=== PATIENT | male | born 1970 | race Caucasian/White ===

== ENCOUNTER 2017-10-04 20:37 | Emergency (ER) | payer SELFPAY ==
[~2017-10-04] VITALS: Ht 170.2 cm; Wt 80.0 kg
[~2017-10-04 20:37] MED LIST: HYDR-3533 PO
[2017-10-04 20:38] VITALS: BP 136/86; PULSE 110; RESP 16; TEMP 98.6; O2SAT 97
[2017-10-04] MEDS ORDERED: TRAM50TA PO (21:45)
--- NOTE | 2017-10-04 21:52 | PD ---
HPI Chief Complaint: Abdominal Pain Time Seen by Provider: 21:30 Travel History International Travel<30 days: No Contact w/Intl Traveler<30days: No Traveled to known affect area: No History of Present Illness HPI This patient complains of pain in his left groin. He has a known left inguinal hernia. He has had it for 2-3 years. He says it has been aggravating him more in the last 1 week. He denies vomiting or fever. Symptom severity is moderate. PFSH Past Medical History Anxiety: Yes Cancer: No Cardiovascular Problems: Yes (HTN) Diabetes: No GERD: Yes Hepatitis: No Hypertension: Yes Immune Disorder: Yes (HODGKIN'S DISEASE) Inguinal Hernia: Yes (LEFT) Respiratory: No Thyroid Disease: No Past Surgical History Pacemaker: No Other Surgery: Yes Social History Alcohol Use: Yes (6/DAY) Tobacco Use: Yes (1/4PPD) Substance Use: No Allergies-Medications (Allergen,Severity, Reaction): Coded Allergies: No Known Allergies (Verified Adverse Reaction, Unknown, 10/04/17) Reported Meds & Prescriptions Reported Meds & Active Scripts Active Tramadol (Tramadol HCl) 50 Mg Tab 50 Mg PO Q6H PRN Review of Systems General / Constitutional: No: Fever HENT: No: Headaches Cardiovascular: No: Chest Pain or Discomfort Respiratory: No: Cough Physical Exam Narrative GASTROINTESTINAL: Abdomen soft, non-tender, nondistended. Positive bowel sounds. No hepato-splenomegaly, or palpable masses. No guarding. Patient has a left inguinal hernia that is easily reducible. SKIN: Focused skin assessment reveals no rash or ulcers. Skin is warm and dry. Palpation shows no induration or nodules. Psych: Normal mood and affect. Normal insight and judgment. NECK: Symmetrical appearance, midline trachea. No mass or crepitus. Thyroid without enlargement, tenderness, or mass. Data Data Last Documented VS Vital Signs Date Time Temp Pulse Resp B/P (MAP) Pulse Ox O2 Delivery O2 Flow Rate FiO2 10/04/17 20:38 98.6 110 16 136/86 (103) 97 Room Air MDM Medical Decision Making Medical Screen Exam Complete: Yes Emergency Medical Condition: Yes Medical Record Reviewed: Yes Differential Diagnosis Incarcerated hernia, groin strain, colitis Narrative Course I have reviewed the patient's electronic medical record. He was seen here 2 years ago for groin hernia This patient has a left inguinal hernia without incarceration It is readily reducible It is chronic Recommended he follow-up with general surgery I wrote some tramadol for pain relief Diagnosis Primary Impression: Inguinal hernia, left Patient Instructions: General Instructions Departure Forms: Tests/Procedures Additional Instructions: Follow-up with general surgery The patient was warned about potential sedation for the medications they will receive on prescription. Avoid constipation, consider stool softeners Avoid heavy lifting or straining Med/Other Pt SpecificInfo: Prescription(s) given Scripts Tramadol (Tramadol) 50 Mg Tab 50 MG PO Q6H Y for PAIN, #20 TAB 0 Refills Prov: Tommy Farfan MD 10/04/17 Disposition: 01 DISCHARGE HOME Condition: Stable Tommy Farfan MD Oct 04, 2017 21:52
== END 2017-10-04 22:10 | disposition home or self-care (01) ==
LOC: NEPD 20:37
DX: K40.90 Unilateral inguinal hernia, without obstruction or gangrene, not specified as recurrent (principal); F17.200 Nicotine dependence, unspecified, uncomplicated
CPT/HCPCS: 99283

== ENCOUNTER 2018-07-06 18:45 | Inpatient (IN) ==
[2018-07-06] MEDS ORDERED: Thiamine Inj 100 MG in Sodium Chlor 0.9% Inj 100 ML IV.SIG ONE (20:14)
--- NOTE | 2018-07-06 20:25 | ED ---
HPI General Chief Complaint: Abdominal Pain Stated Complaint: Medical Time Seen by Provider: 07/06/18 20:06 Source: patient Mode of arrival: ambulatory Limitations: no limitations History of Present Illness HPI narrative: 48-year-old male complains of abdominal pain, abdominal swelling , lower extremity swelling. Patient states that symptoms started about 2 months ago. Patient has history of alcohol abuse. Patient states that he stopped drinking about 2 months ago. Patient states that he had increasing swelling of the ankle and then lower extremity and then the abdomen progressively for the past 2 months. Patient denies any nausea vomiting. Patient denies any fever chills. Patient denies any chest pain. Patient states that he has shortness of breath. Patient states abdominal pain and cramping pain intermittent pain diffuse over the abdomen. Patient denies any pain radiation. Patient denies any dysuria frequency. Patient denies any back pain. Patient has history of hypertension in the past. Patient has history of elevated triglyceride level in the past. Patient is a smoker. Patient denies any illicit drug abuse. MD complaint: Reports abdominal pain Onset (ago): month(s) Pain Consistency: constant and intermittent Location: Reports diffuse Severity: mild Severity scale (1-10): 4 Quality: Reports cramping Radiation: Reports none Migration to: Reports no migration Relieving factors: nothing Exacerbating factors: nothing Associated symptoms: Reports denies other symptoms Related Data Home Medications Medication Instructions Recorded Confirmed No Known Home Medications 07/06/18 07/06/18 Allergies Allergy/AdvReac Type Severity Reaction Status Date / Time No Known Allergies Allergy Verified 07/06/18 19:55 Review of Systems ROS: all other systems reviewed are negative [facility] Medical History Medical History Alcoholism /alcohol abuse (Acute) Hypertension (Acute) Kidney capsule rupture (Acute) Surgical History Surgical History No history of previous surgery (Acute) Social History Social History Smoking Status: Current every day smoker Tobacco Type: Cigarettes How Often Do You Have a Drink Containing Alcohol: 4 or more times a week Recent Travel in [facility] within the Last 8 Weeks: No Recent Out of Country Travel within the Last 8 Weeks: No Immunization History Tetanus Immunization: <5 Years Exam Narrative Exam Narrative: GENERAL: Well-nourished, well-developed patient. SKIN: Jaundice HEAD: Normocephalic. EYES: Bilateral scleral icterus. No injection or drainage. NECK: Supple, trachea midline. No JVD or lymphadenopathy. CARDIOVASCULAR: Regular rate and rhythm without murmurs, gallops, or rubs. RESPIRATORY: Breath sounds equal bilaterally. No accessory muscle use. GASTROINTESTINAL: Abdomen distended. Mild diffuse tenderness over the abdomen. No rebound tenderness. MUSCULOSKELETAL: Patient has +2 pitting edema lower extremity. BACK: Nontender without obvious deformity. No CVA tenderness. Neurologic exam normal. Course Initial Documented Vital Signs Temperature 97.9 F 07/06/18 19:12 Pulse Rate 110 H 07/06/18 19:12 Respiratory Rate 14 07/06/18 19:12 Blood Pressure 145/63 H 07/06/18 19:12 Pulse Oximetry 88 L 07/06/18 19:12 Last Documented Vital Signs Temperature 97.9 F 07/06/18 19:12 Pulse Rate 95 H 07/06/18 20:36 Respiratory Rate 24 07/06/18 19:51 Blood Pressure 124/89 07/06/18 19:51 Pulse Oximetry 93 L 07/06/18 20:36 Medical Decision Making MDM Narrative Medical decision making narrative: 48-year-old male with abdominal distention, lower extremity edema, and jaundice. History of alcohol abuse. Medical Screen Exam Complete: Yes Emergency Medical Condition: Yes Differential Diagnosis Differential Diagnosis: Differential diagnosis including hepatitis, gallbladder disease, common bile duct obstruction, electrolyte abnormality, liver cirrhosis , abdominal ascites. Lab Data Lab results reviewed: Yes I reviewed the patient's lab results. Result diagrams: 07/06/18 20:25 07/06/18 20:25 Lab Results 07/06/18 07/06/18 07/06/18 Range/Units 20:25 20:25 20:25 WBC 11.4 H (4.0-11.0) th/mm3 RBC 2.05 L (4.50-5.90) mil/mm3 Hgb 7.3 L (13.0-17.0) gm/dL Hct 22.0 L (39.0-51.0) % MCV 107.5 H (80.0-100.0) fL MCH 35.4 H (27.0-34.0) pg MCHC 32.9 (32.0-36.0) % RDW 20.3 H (11.6-17.2) % Plt Count 173 (150-450) th/mm3 MPV 8.2 (7.0-11.0) fL Prelim Diff (Auto) Slide review pending Neut % (Auto) 69.5 (16.0-70.0) % Lymph % (Auto) 13.5 (9.0-44.0) % [place] % (Auto) 13.6 H (0.0-8.0) % Eos % (Auto) 2.1 (0.0-4.0) % Baso % (Auto) 1.3 (0.0-2.0) % Neut # (Auto) 8.0 H (1.8-7.7) th/mm3 Lymph # (Auto) 1.5 (1.0-4.8) th/mm3 [place] # (Auto) 1.6 H (0.0-0.9) th/mm3 Eos # (Auto) 0.2 (0.0-0.4) th/mm3 Baso # (Auto) 0.1 (0.0-0.2) th/mm3 WBC Differential Manual diff final Seg Neuts % (Manual) 64 (16-70) % Lymphocytes % (Manual) 15 (9-44) % Monocytes % (Manual) 16 H (0-8) % Eosinophils % (Manual) 2 (0-4) % Basophils % (Manual) 2 (0-2) % Promyelocytes % (Man) 1 H (0-0) % Abs Neuts (Manual) 7.4 (1.8-7.7) th/mm3 Nucleated RBCs/100 WBC 3 H (0-0) /100 WBC Differential Comment . Platelet Estimate Normal (Normal) Platelet Morphology Normal (Normal) Acanthocytes (Spur) 2+ H (None) Keratocytes 1+ H (None) PT 19.2 H (9.8-11.6) sec INR 1.9 Ratio APTT 31.2 (23.4-31.7) sec Sodium 139 (136-145) meq/L Potassium 3.6 (3.5-5.1) meq/L Chloride 102 (98-107) meq/L Carbon Dioxide 28.4 (21.0-32.0) meq/L Anion Gap 9 (5-15) meq/L BUN 14 (7-18) mg/dL Creatinine 1.39 H (0.60-1.30) mg/dL Estimated GFR 55 L (>89) mL/min Random Glucose 126 H (74-106) mg/dL Calcium 8.3 L (8.5-10.1) mg/dL Magnesium 1.9 (1.5-2.5) mg/dL Total Bilirubin 22.0 H (0.2-1.0) mg/dL AST 61 H (15-37) U/L ALT 34 (12-78) U/L Alkaline Phosphatase 142 H (45-117) U/L Ammonia (11-32) mcmol/L Total Protein 6.6 (6.4-8.2) g/dL Albumin 2.9 L (3.4-5.0) g/dL Lipase 341 (73-393) U/L 07/06/ Range/Units 20:25 WBC (4.0-11.0) th/mm3 RBC (4.50-5.90) mil/mm3 Hgb (13.0-17.0) gm/dL Hct (39.0-51.0) % MCV (80.0-100.0) fL MCH (27.0-34.0) pg MCHC (32.0-36.0) % RDW (11.6-17.2) % Plt Count (150-450) th/mm3 MPV (7.0-11.0) fL Prelim Diff (Auto) Neut % (Auto) (16.0-70.0) % Lymph % (Auto) (9.0-44.0) % [place] % (Auto) (0.0-8.0) % Eos % (Auto) (0.0-4.0) % Baso % (Auto) (0.0-2.0) % Neut # (Auto) (1.8-7.7) th/mm3 Lymph # (Auto) (1.0-4.8) th/mm3 [place] # (Auto) (0.0-0.9) th/mm3 Eos # (Auto) (0.0-0.4) th/mm3 Baso # (Auto) (0.0-0.2) th/mm3 WBC Differential Seg Neuts % (Manual) (16-70) % Lymphocytes % (Manual) (9-44) % Monocytes % (Manual) (0-8) % Eosinophils % (Manual) (0-4) % Basophils % (Manual) (0-2) % Promyelocytes % (Man) (0-0) % Abs Neuts (Manual) (1.8-7.7) th/mm3 Nucleated RBCs/100 WBC (0-0) /100 WBC Differential Comment Platelet Estimate (Normal) Platelet Morphology (Normal) Acanthocytes (Spur) (None) Keratocytes (None) PT (9.8-11.6) sec INR Ratio APTT (23.4-31.7) sec Sodium (136-145) meq/L Potassium (3.5-5.1) meq/L Chloride (98-107) meq/L Carbon Dioxide (21.0-32.0) meq/L Anion Gap (5-15) meq/L BUN (7-18) mg/dL Creatinine (0.60-1.30) mg/dL Estimated GFR (>89) mL/min Random Glucose (74-106) mg/dL Calcium (8.5-10.1) mg/dL Magnesium (1.5-2.5) mg/dL Total Bilirubin (0.2-1.0) mg/dL AST (15-37) U/L ALT (12-78) U/L Alkaline Phosphatase (45-117) U/L Ammonia Less than 10 L (11-32) mcmol/L Total Protein (6.4-8.2) g/dL Albumin (3.4-5.0) g/dL Lipase (73-393) U/L Imaging Data Attestation: I personally reviewed and interpreted this imaging study as follows : Radiologist's impression: Abdomen/Pelvis CT 07/06/18 20:14 CONCLUSION: 1. Large amount of abdominal ascites. 2. Splenomegaly. Discharge Plan Discharge Disposition Patient Disposition: 30 Still Patient Discharge Details Diagnosis: Ascites, Alcoholic hepatitis, Acute dyspnea, Coagulopathy Physicians Team ED Provider: Carl Peña Primary Care Provider: Primary Care Physici,No Rxs /Orders / Referrals /Forms Prescriptions: No Action No Known Home Medications RF: 0 Discharge Interventions Interventions: Vital Signs Last Done: 07/06/18 19:51 Status ED Status: With Doctor
[2018-07-06] MEDS ORDERED: Morphine Sulfate Inj 2 MG/ML Vial IV.PUSH ONE (20:41)
[2018-07-06 20:46] LABS: Baso # (Auto) 0.1 th/mm3 (0.0-0.2); Baso % (Auto) 1.3 % (0.0-2.0); Eos # (Auto) 0.2 th/mm3 (0.0-0.4); Eos % (Auto) 2.1 % (0.0-4.0); Hemoglobin 7.3 gm/dL (13.0-17.0); Lymph # (Auto) 1.5 th/mm3 (1.0-4.8); Lymph % (Auto) 13.5 % (9.0-44.0); Mean Corpuscular HGB Conc 32.9 % (32.0-36.0); Mean Corpuscular Hemoglobin 35.4 pg (27.0-34.0); Mean Corpuscular Volume 107.5 fL (80.0-100.0); Mean Platelet Volume 8.2 fL (7.0-11.0); Mono # (Auto) 1.6 th/mm3 (0.0-0.9); Mono % (Auto) 13.6 % (0.0-8.0); Neut % (Auto) 69.5 % (16.0-70.0); Platelet Count 173 th/mm3 (150-450); Red Blood Count 2.05 mil/mm3 (4.50-5.90); Red Cell Distribution Width 20.3 % (11.6-17.2); White Blood Count 11.4 th/mm3 (4.0-11.0)
[2018-07-06 20:52] LABS: Alanine Aminotransferase 34 U/L (12-78)
[2018-07-06 20:53] LABS: Albumin 2.9 g/dL (3.4-5.0); Anion Gap 9 meq/L (5-15); Aspartate Aminotransferase 61 U/L (15-37); Blood Urea Nitrogen 14 mg/dL (7-18); Calcium 8.3 mg/dL (8.5-10.1); Carbon Dioxide 28.4 meq/L (21.0-32.0); Chloride 102 meq/L (98-107); Glomerular Filtration Rate 55 mL/min (>89); Glucose,Random 126 mg/dL (74-106); Lipase 341 U/L (73-393); Magnesium 1.9 mg/dL (1.5-2.5); Potassium 3.6 meq/L (3.5-5.1); Sodium 139 meq/L (136-145)
[2018-07-06 21:05] LABS: Activated Partial Thrombo Time 31.2 sec (23.4-31.7); INR 1.9 Ratio; Prothrombin Time 19.2 sec (9.8-11.6)
[2018-07-06 21:10] LABS: Alkaline Phosphatase 142 U/L (45-117); Total Protein 6.6 g/dL (6.4-8.2)
[2018-07-06 21:23] LABS: Eosinophils 2 % (0-4); Lymphocytes 15 % (9-44); Monocytes 16 % (0-8); Promyelocyte 1 % (0-0); Tallied Nucleated RBC 3 (0-0)
[2018-07-06 21:24] LABS: Acanthocytes 2+
[2018-07-06 21:25] LABS: Platelet Estimate Normal (Normal); Platelet Morphology Normal (Normal)
--- NOTE | 2018-07-06 21:31 | CT ---
EXAM DATE: 07/06/2018 9:20 PM EST AGE/SEX: 48 years / Male INDICATIONS: Abdomen pain. Evaluate for ascites. CLINICAL DATA: This is the patient's initial encounter. Patient reports that signs and symptoms have been present for 1 day and indicates a pain score of 10/10. MEDICAL/SURGICAL HISTORY: Hypertension. Alcohol abuse None. RADIATION DOSE: 19.10 CTDI (mGy) COMPARISON: No prior exams available for comparison. TECHNIQUE: Multiple contiguous axial images were obtained through the abdomen. Images were obtained using multiple row detector helical technique. Using automated exposure control and adjustment of the mA and/or kV according to patient size, radiation dose was kept as low as reasonably achievable to o btain optimal diagnostic quality images. DICOM format image data is available electronically for rev iew and comparison. FINDINGS: Lower Lungs: Small bilateral pleural effusions and bibasilar consolidation greater left lower lobe. Liver: The liver has a homogeneous density without space-occupying lesion. There is no dilation of th e biliary tree. Large amount of abdominal ascites. Spleen: Homogeneous density with enlargement. Pancreas: Unremarkable without mass or calcification. Kidneys: Normal in size and shape. No evidence of mass or hydronephrosis. Adrenal Glands: Unremarkable. Aorta: The aorta and proximal iliac vessels are grossly unremarkable without aneurysmal dilation. Bowel/Mesentery: The bowel loops are grossly unremarkable. The cecum and sigmoid colon have a normal configuration. Abdominal Wall: Intact. Retroperitoneum: No evidence of adenopathy in the retrocrural, para-aortic, or deep pelvic regions. Bladder: Contours are smooth. Reproductive Organs: No abnormal masses or calcifications seen. Inguinal: Bilateral inguinal hernias containing fluid. The left. Bony Structures: Unremarkable. CONCLUSION: 1. Large amount of abdominal ascites. 2. Splenomegaly. Electronically signed by: Nehemiah Valente MD 07/06/2018 9:30 PM EST
[2018-07-06] MEDS ORDERED: Bisacodyl 10 MG Supp RECTAL PRN (22:46)
[2018-07-06] MEDS ORDERED: LORazepam 1 MG Tablet PO PRN (23:19)
[2018-07-06] MEDS ORDERED: Haloperidol Inj 5 MG/ML Ampul IV.PUSH PRN (23:19)
--- NOTE | 2018-07-06 23:31 | P.HP ---
History of Present Illness Service: [facility] Primary Care Physician: No Primary Care Physician History of Present Illness: 48-year-old male with a past medical history significant for alcohol abuse presents to the emergency department for the evaluation of abdominal swelling and shortness of breath. The patient reports that approximately 8 weeks ago he started to have bilateral lower extremity edema. He reports that the swelling continued to worsen and approximately 4 weeks ago his abdomen began to swell. He reports increasing swelling in his abdomen with accompanying shortness of breath. He has been jaundiced for approximately 8 weeks. The patient reports drinking 8-10 beers a day with 1 pint of liquor daily as well. He denies any history of IV drug abuse or hepatitis C. No chest pain. Associated abdominal pain. No nausea/vomiting/diarrhea. The patient reports that his last drink was 2 months ago. No fever/chills. No focal neurologic deficits. Inpatient Certification: I certify that the inpatient services were ordered in accordance with Medicare regulations governing the order. This includes certification that hospital inpatient services are reasonable and necessary and in the case of services not specified as inpatient-only under 42 CFR 419.22(n), that they are appropriately provided as inpatient services in accordance to with the 2-midnight benchmark under 43 CFR 412.3(e) Estimated Total Length of Stay (Days): 3 Plans for Post Hospital Care: Home Review of Systems All other systems reviewed negative except as stated [facility] - History History Provided By: Patient - Medical History Medical History: Medical History (Last Reviewed 07/06/18 @ 23:22 by Yesenia Denis MD) Alcoholism /alcohol abuse Hypertension Kidney capsule rupture - Surgical History Surgical History: Surgical History (Last Updated 07/06/18 @ 23:23 by Yesenia Denis MD) History of hand surgery History of knee surgery - Family History Family History: Family History (Last Updated 07/06/18 @ 23:23 by Yesenia Denis MD) Other Diabetes mellitus - Tobacco History Tobacco Use In Past 30 Days: Yes Smoking Status: Current every day smoker Tobacco Type: Cigarettes - Alcohol History How Often Do You Have a Drink Containing Alcohol: 4 or more times a week - Travel History Recent Travel in the [place] Within the Last 8 Weeks: No Recent Travel Out of the Country Within the Last 8 Weeks: No - Immunization History Tetanus Immunization: <5 Years Medications and Allergies Active Medications: Active Medications Bisacodyl (Dulcolax Supp) 10 mg RECTAL DAILY PRN PRN Reason: SEVERE CONSITIPATION Ondansetron HCl (Zofran Inj) 4 mg IV.PUSH Q6H PRN PRN Reason: NAUSEA OR VOMITING Sennosides (Senokot) 17.2 mg PO Q12H PRN PRN Reason: Moderate Constipation Allergies Allergy/AdvReac Type Severity Reaction Status Date / Time No Known Allergies Allergy Verified 07/06/18 19:55 Home Medications Medication Instructions Recorded Confirmed Type No Known Home Medications 07/06/18 07/06/18 History Exam Vital signs: Vital Signs 07/06/18 19:12 07/06/18 19:51 07/06/18 20:36 Temperature 97.9 F Pulse Rate 110 H 98 H 95 H Respiratory Rate 14 24 Blood Pressure 145/63 H 124/89 Pulse Oximetry 88 L 93 L 93 L 07/06/18 22:28 07/06/18 23:17 Temperature Pulse Rate 92 H Respiratory Rate 20 Blood Pressure 135/84 Pulse Oximetry 96 92 L Intake & Output 07/06/18 07/06/18 07/07/18 06:59 18:59 06:59 Intake Total 101 / 101 Balance 101 / 101 Weight 86.183 kg Intake: IV 101 / 101 Thiamine Inj 100 MG In NS Inj 101 / 101 100 ML @ 100 mls/hr IV.SIG ONCE ONE Rx#:[id number] Narrative: Gen.: No acute distress. Positive jaundice. Head: Normocephalic. Atraumatic. EENT: Pupils equal round and reactive to light. Nose without drainage. Airway intact. Throat without injection. Positive scleral icterus. Cardiovascular: Regular rate and rhythm. No murmurs, rubs or gallops. Respiratory: Lungs clear to auscultation bilaterally. No wheezes or rhonchi. Abdomen: Soft, markedly distended, diffusely tender to palpation with positive fluid wave. No peritoneal signs. Musculoskeletal: No gross deformities. No edema. Skin: No obvious rashes or erythema. Neuro: Sensory and motor grossly intact. Cranial nerves II through XII grossly intact. Results - Labs CBC & Chem 7: 07/06/18 20:25 07/06/18 20:25 Labs: Laboratory Results - last 24 hr 07/06/18 07/06/18 07/06/18 20:25 20:25 20:25 WBC 11.4 H RBC 2.05 L Hgb 7.3 L Hct 22.0 L MCV 107.5 H MCH 35.4 H MCHC 32.9 RDW 20.3 H Plt Count 173 MPV 8.2 Prelim Diff (Auto) Slide review pending Neut % (Auto) 69.5 Lymph % (Auto) 13.5 [place] % (Auto) 13.6 H Eos % (Auto) 2.1 Baso % (Auto) 1.3 Neut # (Auto) 8.0 H Lymph # (Auto) 1.5 [place] # (Auto) 1.6 H Eos # (Auto) 0.2 Baso # (Auto) 0.1 WBC Differential Manual diff final Seg Neuts % (Manual) 64 Lymphocytes % (Manual) 15 Monocytes % (Manual) 16 H Eosinophils % (Manual) 2 Basophils % (Manual) 2 Promyelocytes % (Man) 1 H Abs Neuts (Manual) 7.4 Nucleated RBCs/100 WBC 3 H Differential Comment . Platelet Estimate Normal Platelet Morphology Normal Acanthocytes (Spur) 2+ H Keratocytes 1+ H PT 19.2 H INR 1.9 APTT 31.2 Sodium 139 Potassium 3.6 Chloride 102 Carbon Dioxide 28.4 Anion Gap 9 BUN 14 Creatinine 1.39 H Estimated GFR 55 L Random Glucose 126 H Calcium 8.3 L Magnesium 1.9 Total Bilirubin 22.0 H AST 61 H ALT 34 Alkaline Phosphatase 142 H Ammonia Total Protein 6.6 Albumin 2.9 L Lipase 341 07/06/18 20:25 WBC RBC Hgb Hct MCV MCH MCHC RDW Plt Count MPV Prelim Diff (Auto) Neut % (Auto) Lymph % (Auto) [place] % (Auto) Eos % (Auto) Baso % (Auto) Neut # (Auto) Lymph # (Auto) [place] # (Auto) Eos # (Auto) Baso # (Auto) WBC Differential Seg Neuts % (Manual) Lymphocytes % (Manual) Monocytes % (Manual) Eosinophils % (Manual) Basophils % (Manual) Promyelocytes % (Man) Abs Neuts (Manual) Nucleated RBCs/100 WBC Differential Comment Platelet Estimate Platelet Morphology Acanthocytes (Spur) Keratocytes PT INR APTT Sodium Potassium Chloride Carbon Dioxide Anion Gap BUN Creatinine Estimated GFR Random Glucose Calcium Magnesium Total Bilirubin AST ALT Alkaline Phosphatase Ammonia Less than 10 L Total Protein Albumin Lipase - Imaging Impressions Abdomen/Pelvis CT 07/06/18 20:14 CONCLUSION: 1. Large amount of abdominal ascites. 2. Splenomegaly. Caprini VTE Risk Assessment Caprini VTE Risk Assessment: No/Low Risk (score <= 1) Caprini Risk Assessment Model: Point Value = 1 Point Value = 2 Point Value = 3 Point Value = 5 Age 41-60 Minor surgery BMI > 25 kg/m2 Swollen legs Varicose veins or History of unexplained or recurrent spontaneous Oral contraceptives or hormone replacement Sepsis (< 1 month) Serious lung disease, including pneumonia (< 1 month) Abnormal pulmonary function Acute myocardial infarction Congestive heart failure (< 1 month) History of inflammatory bowel disease Medical patient at bed rest Age 61-74 Arthroscopic surgery Major open surgery (> 45 min) Laparoscopic surgery (> 45 min) Malignancy Confined to bed (> 72 hours) Immobilizing plaster cast Central venous access Age >= 75 History of VTE Family history of VTE Factor V Leiden Prothrombin [id number] Lupus anticoagulant Anticardiolipin antibodies Elevated serum homocysteine Heparin-induced thrombocytopenia Other congenital or acquired thrombophilia Stroke (< 1 month) Elective arthroplasty Hip, pelvis, or leg fracture Acute spinal cord injury (< 1 month) Prophylaxis Regimen: Total Risk Factor Score Risk Level Prophylaxis Regimen 0-1 Low Early ambulation 2 Moderate Order ONE of the following: *Sequential Compression Device (SCD) *Heparin 5000 units SQ BID 3-4 Higher Order ONE of the following medications: *Heparin 5000 units SQ TID *Enoxaparin/Lovenox 40 mg SQ daily (WT < 150 kg, CrCl > 30 mL/min) *Enoxaparin/Lovenox 30 mg SQ daily (WT < 150 kg, CrCl > 10-29 mL/min) *Enoxaparin/Lovenox 30 mg SQ BID (WT < 150 kg, CrCl > 30 mL/min) AND/OR *Sequential Compression Device (SCD) 5 or more Highest Order ONE of the following medications: *Heparin 5000 units SQ TID (Preferred with Epidurals) *Enoxaparin/Lovenox 40 mg SQ daily (WT < 150 kg, CrCl > 30 mL/min) *Enoxaparin/Lovenox 30 mg SQ daily (WT < 150 kg, CrCl > 10-29 mL/min) *Enoxaparin/Lovenox 30 mg SQ BID (WT < 150 kg, CrCl > 30 mL/min) AND *Sequential Compression Device (SCD) Assessment and Plan - Plan Assessment/plan: 1. Ascites/jaundice May be secondary to liver failure from alcohol abuse Hepatitis profile pending CT of the abdomen/pelvis significant homogeneous density of the liver AFP pending Thoracentesis ordered 2. Alcohol abuse Patient reports last drink was 2 months ago Reports drinking 8-10 beers daily with 1 pint of hard liquor [facility] protocol Alcohol level pending FEN N.p.o. Electrolytes: Monitor and replete as needed
[2018-07-07 01:03] LABS: Hepatitis A IgM Antibody Nonreactive (Nonreactive); Hepatitits B Surface Antigen Nonreactive (Nonreactive)
[2018-07-07 08:17] LABS: Baso # (Auto) 0.1 th/mm3 (0.0-0.2); Eos # (Auto) 0.7 th/mm3 (0.0-0.4); Eos % (Auto) 5.1 % (0.0-4.0); Lymph # (Auto) 2.6 th/mm3 (1.0-4.8); Lymph % (Auto) 20.4 % (9.0-44.0); Mean Corpuscular HGB Conc 34.1 % (32.0-36.0); Mean Corpuscular Hemoglobin 36.9 pg (27.0-34.0); Mean Platelet Volume 7.9 fL (7.0-11.0); Mono # (Auto) 1.9 th/mm3 (0.0-0.9); Mono % (Auto) 14.7 % (0.0-8.0); Neut # (Auto) 7.6 th/mm3 (1.8-7.7); Neut % (Auto) 58.8 % (16.0-70.0); Platelet Count 140 th/mm3 (150-450); Red Blood Count 1.57 mil/mm3 (4.50-5.90); Red Cell Distribution Width 20.9 % (11.6-17.2)
[2018-07-07 08:34] LABS: Hematocrit 16.9 % (39.0-51.0); Hemoglobin 5.8 gm/dL (13.0-17.0)
[2018-07-07 08:46] LABS: Carbon Dioxide 30.3 meq/L (21.0-32.0); Potassium 3.3 meq/L (3.5-5.1)
[2018-07-07] MEDS: Multivitamin/Minerals Therapeutic Tablet PO SCH (08:46)
[2018-07-07] MEDS: Folic Acid 1 MG Tablet PO SCH (08:46)
[2018-07-07] MEDS ORDERED: KCL 20 mEq/D5W/NaCl 0.9% Inj 1,000 ML IV.CONT SCH (09:17)
[2018-07-07 09:50] LABS: Burr Cells 2+; Polychromasia 3.9 % (0.0-1.9)
[2018-07-07 09:51] LABS: Acanthocytes 1+; Platelet Morphology Normal (Normal)
--- NOTE | 2018-07-07 10:19 | P.PNIM ---
Subjective Interval history: The patient said that he has been having blood in his urine for weeks. He states his belly has been getting bigger and that has been causing more strain on his hernia. He says he gets short of breath at times. He says he drinks a lot of beer daily. He denies any blood in his bowel movements or black bowel movements. Discussed with nursing. Physical Exam Vital signs: Vital Signs 07/06/18 19:12 07/06/18 19:51 07/06/18 20:36 Temperature 97.9 F Pulse Rate 110 H 98 H 95 H Respiratory Rate 14 24 Blood Pressure 145/63 H 124/89 Pulse Oximetry 88 L 93 L 93 L 07/06/18 22:28 07/06/18 23:17 07/07/18 04:00 Temperature 97.7 F Pulse Rate 92 H 97 H Respiratory Rate 20 22 Blood Pressure 135/84 117/66 Pulse Oximetry 96 92 L 90 L 07/07/18 08:00 Temperature 98.1 F Pulse Rate 97 H Respiratory Rate 19 Blood Pressure 127/68 Pulse Oximetry 94 L Intake & Output 07/06/18 07/07/18 07/07/18 18:59 06:59 18:59 Intake Total 101 / 101 Balance 101 / 101 Weight 88.2 kg Intake: IV 101 / 101 Thiamine Inj 100 MG In NS Inj 101 / 101 100 ML @ 100 mls/hr IV.SIG ONCE ONE Rx#:[id number] Other: Weight On Admission 88.2 kg Narrative: Gen.: No acute distress. Positive jaundice. Head: Normocephalic. Atraumatic. EENT: Pupils equal round and reactive to light. Nose without drainage. Airway intact. Throat without injection. Positive scleral icterus. Cardiovascular: Regular rate and rhythm. No murmurs, rubs or gallops. Respiratory: Lungs clear to auscultation bilaterally. No wheezes or rhonchi. Abdomen: Soft, markedly distended, nontender to palpation. No peritoneal signs. : Left inguinal hernia appreciated. Musculoskeletal: No gross deformities. + LE edema. Skin: No obvious rashes or erythema. Neuro: Sensory and motor grossly intact. Cranial nerves II through XII grossly intact. Results - Labs CBC & Chem 7: 07/07/18 07:52 07/07/18 07:52 Laboratory Results - last 24 hr 07/06/18 07/06/18 07/06/18 20:25 20:25 20:25 WBC 11.4 H RBC 2.05 L Hgb 7.3 L Hct 22.0 L MCV 107.5 H MCH 35.4 H MCHC 32.9 RDW 20.3 H Plt Count 173 MPV 8.2 Prelim Diff (Auto) Slide review pending Neut % (Auto) 69.5 Lymph % (Auto) 13.5 Alexander % (Auto) 13.6 H Eos % (Auto) 2.1 Baso % (Auto) 1.3 Neut # (Auto) 8.0 H Lymph # (Auto) 1.5 Alexander # (Auto) 1.6 H Eos # (Auto) 0.2 Baso # (Auto) 0.1 WBC Differential Manual diff final Diff Scan Seg Neuts % (Manual) 64 Lymphocytes % (Manual) 15 Monocytes % (Manual) 16 H Eosinophils % (Manual) 2 Basophils % (Manual) 2 Promyelocytes % (Man) 1 H Abs Neuts (Manual) 7.4 Nucleated RBCs/100 WBC 3 H Differential Comment . Platelet Estimate Normal Platelet Morphology Normal Polychromasia Andrew Cells Acanthocytes (Spur) 2+ H Keratocytes 1+ H PT 19.2 H INR 1.9 APTT 31.2 Sodium 139 Potassium 3.6 Chloride 102 Carbon Dioxide 28.4 Anion Gap 9 BUN 14 Creatinine 1.39 H Estimated GFR 55 L Random Glucose 126 H Calcium 8.3 L Magnesium 1.9 Total Bilirubin 22.0 H AST 61 H ALT 34 Alkaline Phosphatase 142 H Ammonia Total Protein 6.6 Albumin 2.9 L Lipase 341 Tumor Marker AFP Serum Alcohol Hepatitis A IgM Ab Hep Bs Antigen Hep B Core IgM Ab Hep C IgG Ab 07/06/18 07/06/18 07/06/18 20:25 20:25 23:10 WBC RBC Hgb Hct MCV MCH MCHC RDW Plt Count MPV Prelim Diff (Auto) Neut % (Auto) Lymph % (Auto) Alexander % (Auto) Eos % (Auto) Baso % (Auto) Neut # (Auto) Lymph # (Auto) Alexander # (Auto) Eos # (Auto) Baso # (Auto) WBC Differential Diff Scan Seg Neuts % (Manual) Lymphocytes % (Manual) Monocytes % (Manual) Eosinophils % (Manual) Basophils % (Manual) Promyelocytes % (Man) Abs Neuts (Manual) Nucleated RBCs/100 WBC Differential Comment Platelet Estimate Platelet Morphology Polychromasia [place] Cells Acanthocytes (Spur) Keratocytes PT INR APTT Sodium Potassium Chloride Carbon Dioxide Anion Gap BUN Creatinine Estimated GFR Random Glucose Calcium Magnesium Total Bilirubin AST ALT Alkaline Phosphatase Ammonia Less than 10 L Total Protein Albumin Lipase Tumor Marker AFP Serum Alcohol Less than 3 Hepatitis A IgM Ab Nonreactive Hep Bs Antigen Nonreactive Hep B Core IgM Ab Nonreactive Hep C IgG Ab Nonreactive 07/06/18 07/07/18 07/07/18 23:10 07:52 07:52 WBC 13.0 H RBC 1.57 L Hgb 5.8 L* Hct 16.9 L* MCV 108.0 H MCH 36.9 H MCHC 34.1 RDW 20.9 H Plt Count 140 L MPV 7.9 Prelim Diff (Auto) Slide review pending Neut % (Auto) 58.8 Lymph % (Auto) 20.4 Alexander % (Auto) 14.7 H Eos % (Auto) 5.1 H Baso % (Auto) 1.0 Neut # (Auto) 7.6 Lymph # (Auto) 2.6 Alexander # (Auto) 1.9 H Eos # (Auto) 0.7 H Baso # (Auto) 0.1 WBC Differential . Diff Scan Auto diff confirmed Seg Neuts % (Manual) Lymphocytes % (Manual) Monocytes % (Manual) Eosinophils % (Manual) Basophils % (Manual) Promyelocytes % (Man) Abs Neuts (Manual) Nucleated RBCs/100 WBC Differential Comment . Platelet Estimate Low L Platelet Morphology Normal Polychromasia 3.9 H Andrew Cells 2+ H Acanthocytes (Spur) 1+ H Keratocytes PT INR APTT Sodium 139 Potassium 3.3 L Chloride 102 Carbon Dioxide 30.3 Anion Gap 7 BUN 15 Creatinine 1.16 Estimated GFR 67 L Random Glucose 99 Calcium 8.0 L Magnesium Total Bilirubin AST ALT Alkaline Phosphatase Ammonia Total Protein Albumin Lipase Tumor Marker AFP 3.4 Serum Alcohol Hepatitis A IgM Ab Hep Bs Antigen Hep B Core IgM Ab Hep C IgG Ab - Imaging Impressions Abdomen/Pelvis CT 07/06/18 20:14 CONCLUSION: 1. Large amount of abdominal ascites. 2. Splenomegaly. Assessment and Plan - Plan Ascites/jaundice Likely secondary to liver failure from alcohol abuse. Hepatitis profile negative. CT of the abdomen/pelvis with ascites. AFP 3.4. -Paracentesis ordered, on hold in setting of severe anemia. -GI consult requested. -IV albumin. -follow LFTs. -clear liquids for now. Severe anemia The pt states he has blood in his urine, but that is likely s/t elevated bilirubin levels. Concern for GIB with significant alcohol abuse and liver disease. -two red cells stat. Follow CBC. -GI consult requested. -check a UA. Alcohol abuse Reports drinking 8-10 beers daily with 1 pint of hard liquor. -CIWA protocol. -cessation instruction. Hypoxemia Likely s/t volume overload. -CXR pending. -oxygen and nebs as needed. -paracentesis on hold. Acute renal failure Improved overnight. -follow BMP and avoid nephrotoxins. -albumin. Hypokalemia Likely s/t decreased PO intake. -replete and monitor. Leukocytosis Afebrile. -follow blood cultures. PPx: SCDs
[2018-07-07] MEDS ORDERED: Potassium Chloride 25 MEQ Effervescent Tablet PO ONE (11:00)
[2018-07-07] MEDS ORDERED: Albumin Human 25% Inj 100 ML IV.SIG ONE (11:00)
[2018-07-07 11:04] LABS: % Iron Saturation 24.3 % (20-50); Folate 8.2 ng/mL (3.1-17.5)
[2018-07-07] MEDS: Pantoprazole Inj 40 MG Vial IV.PUSH SCH ×2 (11:31→21:32)
--- NOTE | 2018-07-07 11:56 | XR ---
EXAM DATE: 07/07/2018 11:51 AM EST AGE/SEX: 48 years / Male INDICATIONS: Chest pain and shortness of breath. CLINICAL DATA: This is the patient's subsequent encounter. Patient reports that signs and symptoms h ave been present for 2 days and indicates a pain score of 9/10. MEDICAL/SURGICAL HISTORY: . Hypertension. Alcohol abuse. None. COMPARISON: [facility] – [place], CHEST SINGLE AP, 11/01/2015. . FINDINGS: Hazy bilateral pleural parenchymal opacities. Cardiac contours are grossly satisfactory. CONCLUSION: Bilateral infiltrates and effusions Electronically signed by: Christiano Hill MD 07/07/2018 11:55 AM EST
[2018-07-07] MEDS: Morphine Inj 4 MG/ML Vial IV.PUSH PRN ×3 (12:43→23:24)
[2018-07-07] MEDS ORDERED: Vancomycin Consult Pharmacy OTHER PRN (14:10)
--- NOTE | 2018-07-07 15:06 | P.CONGI ---
History of Present Illness Consult date: 07/07/18 Consult reason: New onset liver failure Anemia Chief complaint: Ascites, Alcoholic Hepatitis, Hypoxemia History of Present Illness: This patient is a 48-year-old male with past medical history significant for alcohol abuse, hypertension. Patient presented to the emergency room at [facility] for evaluation of abdominal distention and shortness of breath. Patient states that symptoms began 2 months ago accompanied by lower extremity edema. Increasing abdominal girth as well as edema also presented with shortness of breath. Patient states he has been jaundiced for about 2 months. States his urine has been darker over the last 2-3 months. He denies any noted bleeding, nausea or vomiting. Patient denies ever having had an EGD or colonoscopy in the past but does report occasional constipation for which he drinks fruit juice to alleviate symptoms. Patient denies any known family history of gastrointestinal disorders. He states he drinks 8-10 beers daily with a pint of rum daily as well. Upon consultation, patient reports that he has been a heavy drinker for the last 6-7 years. He denies any high risk sexual behaviors. Noted homemade tattoo right upper extremity patient states placed 25 years ago. Patient denies use of IV drugs. He does endorse use of marijuana occasionally. Our service has been consulted to evaluate patient for new onset liver failure and anemia <Lawanda Morel - Last Filed: 07/07/18 15:06> Review of Systems All other systems reviewed negative except as stated in HPI <Lawanda Morel - Last Filed: 07/07/18 15:06> PMFSH - History History Provided By: Patient - Medical History Medical History: Medical History (Last Reviewed 07/06/18 @ 23:22 by Yesenia Denis MD) Alcoholism /alcohol abuse Hypertension Kidney capsule rupture - Surgical History Surgical History: Surgical History (Last Updated 07/06/18 @ 23:23 by Yesenia Denis MD) History of hand surgery History of knee surgery - Family History Family History: Family History (Last Updated 07/06/18 @ 23:23 by Yesenia Denis MD) Other Diabetes mellitus - Tobacco History Second Hand Smoke Exposure: No Tobacco Use In Past 30 Days: Yes Smoking Status: Former smoker Tobacco Type: Cigarettes - Alcohol History How Often Do You Have a Drink Containing Alcohol: 4 or more times a week - Substance Use History Substance History: No History of Abuse - Travel History Recent Travel in the [place] Within the Last 8 Weeks: No Recent Travel Out of the Country Within the Last 8 Weeks: No - Immunization History Tetanus Immunization: <5 Years Hx Influenza Vaccine This Season: No <Lawanda Morel - Last Filed: 07/07/18 15:06> - Medical History Medical History: Medical History (Last Reviewed 07/06/18 @ 23:22 by Yesenia Denis MD) Alcoholism /alcohol abuse Hypertension Kidney capsule rupture - Surgical History Surgical History: Surgical History (Last Updated 07/06/18 @ 23:23 by Yesenia Denis MD) History of hand surgery History of knee surgery - Family History Family History: Family History (Last Updated 07/06/18 @ 23:23 by Yesenia Denis MD) Other Diabetes mellitus <Vinnie Askew - Last Filed: 07/08/18 14:29> Medications and Allergies Active Medications: Active Medications Bisacodyl (Dulcolax Supp) 10 mg RECTAL DAILY PRN PRN Reason: SEVERE CONSITIPATION Flumazenil (Romazecon Inj) 0.2 mg IV.PUSH Q1M PRN PRN Reason: OVERSEDATION Folic Acid (Folic Acid) 1 mg PO DAILY NEY Stop: 07/12/18 08:59 Last Admin: 07/07/18 08:46 Dose: 1 mg Furosemide (Lasix Inj) 40 mg IV.PUSH BID@0900,1800 NEY Last Admin: 07/07/18 14:32 Dose: 40 mg Haloperidol Lactate (Haldol Inj) 1 mg IV.PUSH Q15M PRN PRN Reason: for severe agitation Piperacillin/Tazobactam/Dextrose (Zosyn 4.5 Gm Premix) 4.5 gm in 100 mls @ 200 mls/hr IV.SIG Q6H NEY Lorazepam (Ativan) 1 mg PO Q4H PRN PRN Reason: for CIWA 8-10 Lorazepam (Ativan) 2 mg PO Q2H PRN PRN Reason: for CIWA 11-14 Lorazepam (Ativan Inj) 2 mg IV.PUSH Q2H PRN PRN Reason: for CIWA 11-14 Lorazepam (Ativan Inj) 2 mg IV.PUSH Q1H PRN PRN Reason: for CIWA 15-20 Lorazepam (Ativan Inj) 2 mg IV.PUSH Q15M PRN PRN Reason: for CIWA > 20 Lorazepam (Ativan Inj) 1 mg IV.PUSH Q4H PRN PRN Reason: for CIWA 8-10 Morphine Sulfate (Morphine Inj) 4 mg IV.PUSH Q4H PRN PRN Reason: ABDOMINAL PAIN Last Admin: 07/07/18 12:43 Dose: 4 mg Multivitamins/Minerals (Theragran-M) 1 tab PO DAILY [facility] Stop: 07/12/18 08:59 Last Admin: 07/07/18 08:46 Dose: 1 tab Ondansetron HCl (Zofran Inj) 4 mg IV.PUSH Q6H PRN PRN Reason: NAUSEA OR VOMITING Pantoprazole Sodium (Protonix Inj) 40 mg IV.PUSH Q12H [facility] Last Admin: 07/07/18 11:31 Dose: 40 mg Pharmacy Profile Note (Vancomycin Consult Pharmacy) 1 each OTHER UNSCH PRN PRN Reason: Pharmacy to dose Sennosides (Senokot) 17.2 mg PO Q12H PRN PRN Reason: Moderate Constipation Thiamine HCl (Vitamin B1) 100 mg PO DAILY [facility] Last Admin: 07/07/18 08:47 Dose: 100 mg <Lawanda Morel - Last Filed: 07/07/18 15:06> Active Medications: Active Medications Albuterol (Duoneb Neb ([facility])) 1 ampul NEB Q6HR WHILE AWAKE NEB [facility] Last Admin: 07/08/18 13:07 Dose: Not Given Bisacodyl (Dulcolax Supp) 10 mg RECTAL DAILY PRN PRN Reason: SEVERE CONSITIPATION Calcium Carbonate (Tums Chew) 500 mg CHEW Q2H PRN PRN Reason: INDIGESTION Last Admin: 07/08/18 02:09 Dose: 500 mg Flumazenil (Romazecon Inj) 0.2 mg IV.PUSH Q1M PRN PRN Reason: OVERSEDATION Folic Acid (Folic Acid) 1 mg PO DAILY [facility] Stop: 07/12/18 08:59 Last Admin: 07/08/18 08:27 Dose: 1 mg Furosemide (Lasix Inj) 40 mg IV.PUSH BID@0900,1800 [facility] Last Admin: 07/08/18 08:29 Dose: 40 mg Haloperidol Lactate (Haldol Inj) 1 mg IV.PUSH Q15M PRN PRN Reason: for severe agitation Piperacillin/Tazobactam/Dextrose (Zosyn 4.5 Gm Premix) 4.5 gm in 100 mls @ 200 mls/hr IV.SIG Q6H NEY Last Admin: 07/08/18 10:50 Dose: 200 mls/hr Vancomycin HCl 1,500 mg/ (Sodium Chloride) 515 mls @ 257.5 mls/hr IV.SIG Q18H NEY Last Admin: 07/08/18 10:50 Dose: 250 mls/hr Albumin Human (Flexbumin 25% Inj) 250 mls @ 60 mls/hr IV.SIG ONCE ONE; Protocol Stop: 07/08/18 17:50 Last Admin: 07/08/18 14:18 Dose: 60 mls/hr Lorazepam (Ativan) 1 mg PO Q4H PRN PRN Reason: for CIWA 8-10 Lorazepam (Ativan) 2 mg PO Q2H PRN PRN Reason: for CIWA 11-14 Lorazepam (Ativan Inj) 2 mg IV.PUSH Q2H PRN PRN Reason: for CIWA 11-14 Lorazepam (Ativan Inj) 2 mg IV.PUSH Q1H PRN PRN Reason: for CIWA 15-20 Lorazepam (Ativan Inj) 2 mg IV.PUSH Q15M PRN PRN Reason: for CIWA > 20 Lorazepam (Ativan Inj) 1 mg IV.PUSH Q4H PRN PRN Reason: for CIWA 8-10 Miscellaneous Information ([facility] Ordered Lab Info) 0 each OTHER ONCE ONE Stop: 07/09/18 22:46 Morphine Sulfate (Morphine Inj) 4 mg IV.PUSH Q4H PRN PRN Reason: ABDOMINAL PAIN Last Admin: 07/08/18 08:26 Dose: 4 mg Multivitamins/Minerals (Theragran-M) 1 tab PO DAILY [facility] Stop: 07/12/18 08:59 Last Admin: 07/08/18 08:27 Dose: 1 tab Ondansetron HCl (Zofran Inj) 4 mg IV.PUSH Q6H PRN PRN Reason: NAUSEA OR VOMITING Pantoprazole Sodium (Protonix Inj) 40 mg IV.PUSH Q12H NEY Last Admin: 07/08/18 10:50 Dose: 40 mg Pharmacy Profile Note (Vancomycin Consult Pharmacy) 1 each OTHER UNSCH PRN PRN Reason: Pharmacy to dose Sennosides (Senokot) 17.2 mg PO Q12H PRN PRN Reason: Moderate Constipation Thiamine HCl (Vitamin B1) 100 mg PO DAILY NEY Last Admin: 07/08/18 08:27 Dose: 100 mg <Vinnie Askew A - Last Filed: 07/08/18 14:29> Allergies Allergy/AdvReac Type Severity Reaction Status Date / Time No Known Allergies Allergy Verified 07/06/18 19:55 Home Medications Medication Instructions Recorded Confirmed Type No Known Home Medications 07/06/18 07/06/18 History Exam Vital signs: Vital Signs 07/06/18 19:12 07/06/18 19:51 07/06/18 20:36 Temperature 97.9 F Pulse Rate 110 H 98 H 95 H Respiratory Rate 14 24 Blood Pressure 145/63 H 124/89 Pulse Oximetry 88 L 93 L 93 L 07/06/18 22:28 07/06/18 23:17 07/07/18 04:00 Temperature 97.7 F Pulse Rate 92 H 97 H Respiratory Rate 20 22 Blood Pressure 135/84 117/66 Pulse Oximetry 96 92 L 90 L 07/07/18 08:00 07/07/18 12:00 Temperature 98.1 F 98.4 F Pulse Rate 97 H 95 H Respiratory Rate 19 18 Blood Pressure 127/68 121/62 Pulse Oximetry 94 L 95 Intake & Output 07/06/18 07/07/18 07/07/18 18:59 06:59 18:59 Intake Total 101 / 101 100 / 100 Balance 101 / 101 100 / 100 Weight 88.2 kg Intake: IV 101 / 101 100 / 100 Flexbumin 25% Inj 100 ML @ 60 100 / 100 mls/hr IV.SIG ONCE ONE Rx#: [id number] Thiamine Inj 100 MG In NS Inj 101 / 101 100 ML @ 100 mls/hr IV.SIG ONCE ONE Rx#:[id number] Other: Weight On Admission 88.2 kg - Constitutional no acute distress, chronically ill appearing - Routine HEENT Exam Head: Present: normocephalic Eye: Present: conjunctival icterus - Routine Neck Exam Present: supple - Routine Respiratory Exam Present: CTA bilaterally. Absent: accessory muscle use - Routine Cardiovascular Exam Present: RRR - Routine Abdominal Exam Present: normoactive bowel sounds, distended. Absent: tenderness, guarding - Routine Extremities Exam Present: edema, pulses intact - Routine Skin Exam Present: dry, warm, jaundice - Routine Neurological Exam Present: alert, oriented X3 <Morel,Lawanda - Last Filed: 07/07/18 15:06> Vital signs: Vital Signs 07/07/18 14:54 07/07/18 15:11 07/07/18 15:47 Temperature 97.4 F L 97.4 F L Pulse Rate 93 H 104 H 94 H Respiratory Rate 20 22 Blood Pressure 111/58 L 119/65 Pulse Oximetry 90 L 07/07/18 15:48 07/07/18 16:00 07/07/18 16:05 Temperature 98.2 F Pulse Rate 95 H 93 H 93 H Respiratory Rate 19 20 20 Blood Pressure 126/63 117/62 123/65 Pulse Oximetry 94 L 94 L 07/07/18 16:30 07/07/18 16:34 07/07/18 16:47 Temperature 98.7 F Pulse Rate 97 H 89 Respiratory Rate 18 14 Blood Pressure 122/71 122/71 Pulse Oximetry 93 L 93 L 92 L 07/07/18 17:00 07/07/18 17:05 07/07/18 18:00 Temperature Pulse Rate 90 91 H 84 Respiratory Rate 16 17 11 L Blood Pressure 123/66 Pulse Oximetry 95 92 L 91 L 07/07/18 18:05 07/07/18 18:12 07/07/18 18:28 Temperature 98.3 F Pulse Rate 88 88 85 Respiratory Rate 15 17 22 Blood Pressure 121/71 121/71 126/63 Pulse Oximetry 90 L 92 L 93 L 07/07/18 18:42 07/07/18 18:44 07/07/18 19:00 Temperature Pulse Rate 88 88 Respiratory Rate 12 14 Blood Pressure 126/63 Pulse Oximetry 95 96 95 07/07/18 19:05 07/07/18 20:00 07/07/18 20:05 Temperature 98.3 F Pulse Rate 93 H 84 84 Respiratory Rate 22 12 13 Blood Pressure 127/62 129/82 Pulse Oximetry 95 98 96 07/07/18 21:00 07/07/18 21:05 07/07/18 22:00 Temperature Pulse Rate 86 86 96 H Respiratory Rate 12 12 22 Blood Pressure 139/83 Pulse Oximetry 97 96 95 07/07/18 22:05 07/07/18 23:00 07/07/18 23:05 Temperature Pulse Rate 90 84 81 Respiratory Rate 20 15 12 Blood Pressure 128/59 L 116/59 L Pulse Oximetry 99 100 100 07/07/18 23:26 07/07/18 23:32 07/08/18 00:00 Temperature 98.6 F Pulse Rate 81 Respiratory Rate 18 12 Blood Pressure Pulse Oximetry 97 95 07/08/18 00:05 07/08/18 01:00 07/08/18 01:05 Temperature Pulse Rate 82 79 79 Respiratory Rate 12 12 13 Blood Pressure 136/74 117/54 L Pulse Oximetry 96 96 96 07/08/18 02:00 07/08/18 02:05 07/08/18 03:00 Temperature Pulse Rate 85 83 82 Respiratory Rate 12 12 12 Blood Pressure 111/66 Pulse Oximetry 95 96 99 07/08/18 03:05 07/08/18 04:00 07/08/18 04:05 Temperature 98.3 F Pulse Rate 79 86 80 Respiratory Rate 12 16 16 Blood Pressure 106/61 117/61 Pulse Oximetry 97 96 96 07/08/18 05:00 07/08/18 05:05 07/08/18 06:00 Temperature Pulse Rate 79 78 77 Respiratory Rate 14 12 12 Blood Pressure 103/58 L Pulse Oximetry 96 92 L 96 07/08/18 06:05 07/08/18 08:23 07/08/18 10:54 Temperature 97.9 F Pulse Rate 80 79 82 Respiratory Rate 13 22 19 Blood Pressure 114/61 110/86 Pulse Oximetry 96 100 94 L 07/08/18 11:50 07/08/18 13:19 Temperature 97.9 F 98.2 F Pulse Rate 87 67 Respiratory Rate 24 19 Blood Pressure 121/69 104/55 L Pulse Oximetry 94 L 96 Intake & Output 07/07/18 07/08/18 07/08/18 18:59 06:59 18:59 Intake Total 700 / 700 2014 474 / 474 Output Total 700 / 700 Balance 700 / 700 1315 / 1315 474 / 474 Weight 91.9 kg Intake: IV 200 / 200 1015 / 1015 Flexbumin 25% Inj 100 ML @ 60 100 / 100 mls/hr IV.SIG ONCE ONE Rx#: [id number] Zosyn 4.5 GM Premix 4.5 gm In 100 / 100 200 / 200 100 ml @ 200 mls/hr IV.SIG Q6H NEY Rx#:[id number] KCl 10 mEq Premix Inj 10 meq In 300 / 300 100 ml @ 100 mls/hr IV.SIG Q1H NEY Rx#:[id number] Vancomycin Inj 1,500 MG In NS 515 / 515 Inj 500 ML @ 257.5 mls/hr IV. SIG Q18H NEY Rx#:[id number] Oral 600 / 600 Other 100 / 100 250 / 250 Plasma Thawed 5 Day Acda Unit 250 / 250 [id number] Rbc As-3 Leukoreduced Unit 100 / 100 [id number] Intake (Blood Product) Amt 400 / 400 400 / 400 224 / 224 Plasma Thawed 5 Day Acda Unit 224 / 224 [id number] Rbc As-3 Leukoreduced Unit 400 / 400 [id number] Rbc As-3 Leukoreduced Unit 0 / 0 400 / 400 [id number] Output: Urine 700 / 700 Other: Other Intake Source Rbc As-3 Leukoreduced Unit Saline Solution [id number] Date of Last Bowel Movement 07/07/18 # Bowel Movements 1 <Vinnie Askew A - Last Filed: 07/08/18 14:29> Results - Labs CBC & Chem 7: 07/07/18 07:52 07/07/18 07:52 Labs: Laboratory Results - last 24 hr 07/06/18 07/06/18 07/06/18 20:25 20:25 20:25 WBC 11.4 H RBC 2.05 L Hgb 7.3 L Hct 22.0 L MCV 107.5 H MCH 35.4 H MCHC 32.9 RDW 20.3 H Plt Count 173 MPV 8.2 Prelim Diff (Auto) Slide review pending Neut % (Auto) 69.5 Lymph % (Auto) 13.5 [place] % (Auto) 13.6 H Eos % (Auto) 2.1 Baso % (Auto) 1.3 Neut # (Auto) 8.0 H Lymph # (Auto) 1.5 [place] # (Auto) 1.6 H Eos # (Auto) 0.2 Baso # (Auto) 0.1 WBC Differential Manual diff final Diff Scan Seg Neuts % (Manual) 64 Lymphocytes % (Manual) 15 Monocytes % (Manual) 16 H Eosinophils % (Manual) 2 Basophils % (Manual) 2 Promyelocytes % (Man) 1 H Abs Neuts (Manual) 7.4 Nucleated RBCs/100 WBC 3 H Differential Comment . Platelet Estimate Normal Platelet Morphology Normal Polychromasia Andrew Cells Acanthocytes (Spur) 2+ H Keratocytes 1+ H PT 19.2 H INR 1.9 APTT 31.2 Sodium 139 Potassium 3.6 Chloride 102 Carbon Dioxide 28.4 Anion Gap 9 BUN 14 Creatinine 1.39 H Estimated GFR 55 L Random Glucose 126 H Calcium 8.3 L Magnesium 1.9 Iron TIBC % Saturation Ferritin Total Bilirubin 22.0 H AST 61 H ALT 34 Alkaline Phosphatase 142 H Ammonia Total Protein 6.6 Albumin 2.9 L Lipase 341 Tumor Marker AFP Vitamin B12 Folate Serum Alcohol Hepatitis A IgM Ab Hep Bs Antigen Hep B Core IgM Ab Hep C IgG Ab Blood Type Antibody Screen MTS Gel Crossmatch Bld Prod Order Comment 07/06/18 07/06/18 07/06/18 20:25 20:25 23:10 WBC RBC Hgb Hct MCV MCH MCHC RDW Plt Count MPV Prelim Diff (Auto) Neut % (Auto) Lymph % (Auto) [place] % (Auto) Eos % (Auto) Baso % (Auto) Neut # (Auto) Lymph # (Auto) [place] # (Auto) Eos # (Auto) Baso # (Auto) WBC Differential Diff Scan Seg Neuts % (Manual) Lymphocytes % (Manual) Monocytes % (Manual) Eosinophils % (Manual) Basophils % (Manual) Promyelocytes % (Man) Abs Neuts (Manual) Nucleated RBCs/100 WBC Differential Comment Platelet Estimate Platelet Morphology Polychromasia Andrew Cells Acanthocytes (Spur) Keratocytes PT INR APTT Sodium Potassium Chloride Carbon Dioxide Anion Gap BUN Creatinine Estimated GFR Random Glucose Calcium Magnesium Iron TIBC % Saturation Ferritin Total Bilirubin AST ALT Alkaline Phosphatase Ammonia Less than 10 L Total Protein Albumin Lipase Tumor Marker AFP Vitamin B12 Folate Serum Alcohol Less than 3 Hepatitis A IgM Ab Nonreactive Hep Bs Antigen Nonreactive Hep B Core IgM Ab Nonreactive Hep C IgG Ab Nonreactive Blood Type Antibody Screen MTS Gel Crossmatch Bld Prod Order Comment 07/06/18 07/07/18 07/07/18 23:10 07:52 07:52 WBC 13.0 H RBC 1.57 L Hgb 5.8 L* Hct 16.9 L* MCV 108.0 H MCH 36.9 H MCHC 34.1 RDW 20.9 H Plt Count 140 L MPV 7.9 Prelim Diff (Auto) Slide review pending Neut % (Auto) 58.8 Lymph % (Auto) 20.4 [place] % (Auto) 14.7 H Eos % (Auto) 5.1 H Baso % (Auto) 1.0 Neut # (Auto) 7.6 Lymph # (Auto) 2.6 [place] # (Auto) 1.9 H Eos # (Auto) 0.7 H Baso # (Auto) 0.1 WBC Differential . Diff Scan Auto diff confirmed Seg Neuts % (Manual) Lymphocytes % (Manual) Monocytes % (Manual) Eosinophils % (Manual) Basophils % (Manual) Promyelocytes % (Man) Abs Neuts (Manual) Nucleated RBCs/100 WBC Differential Comment . Platelet Estimate Low L Platelet Morphology Normal Polychromasia 3.9 H [place] Cells 2+ H Acanthocytes (Spur) 1+ H Keratocytes PT INR APTT Sodium 139 Potassium 3.3 L Chloride 102 Carbon Dioxide 30.3 Anion Gap 7 BUN 15 Creatinine 1.16 Estimated GFR 67 L Random Glucose 99 Calcium 8.0 L Magnesium Iron TIBC % Saturation Ferritin Total Bilirubin AST ALT Alkaline Phosphatase Ammonia Total Protein Albumin Lipase Tumor Marker AFP 3.4 Vitamin B12 Folate Serum Alcohol Hepatitis A IgM Ab Hep Bs Antigen Hep B Core IgM Ab Hep C IgG Ab Blood Type Antibody Screen MTS Gel Crossmatch Bld Prod Order Comment 07/07/18 07/07/18 07:52 11:17 WBC RBC Hgb Hct MCV MCH MCHC RDW Plt Count MPV Prelim Diff (Auto) Neut % (Auto) Lymph % (Auto) [place] % (Auto) Eos % (Auto) Baso % (Auto) Neut # (Auto) Lymph # (Auto) [place] # (Auto) Eos # (Auto) Baso # (Auto) WBC Differential Diff Scan Seg Neuts % (Manual) Lymphocytes % (Manual) Monocytes % (Manual) Eosinophils % (Manual) Basophils % (Manual) Promyelocytes % (Man) Abs Neuts (Manual) Nucleated RBCs/100 WBC Differential Comment Platelet Estimate Platelet Morphology Polychromasia Andrew Cells Acanthocytes (Spur) Keratocytes PT INR APTT Sodium Potassium Chloride Carbon Dioxide Anion Gap BUN Creatinine Estimated GFR Random Glucose Calcium Magnesium Iron 52 L TIBC 214 L % Saturation 24.3 Ferritin 80 Total Bilirubin AST ALT Alkaline Phosphatase Ammonia Total Protein Albumin Lipase Tumor Marker AFP Vitamin B12 1542 H Folate 8.2 Serum Alcohol Hepatitis A IgM Ab Hep Bs Antigen Hep B Core IgM Ab Hep C IgG Ab Blood Type A Negative Antibody Screen Negative MTS Gel Crossmatch See Detail Bld Prod Order Comment - Imaging Impressions Abdomen/Pelvis CT 07/06/18 20:14 CONCLUSION: 1. Large amount of abdominal ascites. 2. Splenomegaly. Chest X-Ray 07/07/18 10:19 CONCLUSION: Bilateral infiltrates and effusions <Lawanda Morel - Last Filed: 07/07/18 15:06> - Labs CBC & Chem 7: 07/08/18 05:41 07/08/18 05:41 Labs: Laboratory Results - last 24 hr 07/07/18 07/07/18 07/07/18 11:17 16:15 17:27 WBC RBC Hgb Hct MCV MCH MCHC RDW Plt Count MPV PT INR Puncture Site Patient Temperature O2 Saturation ABG pH ABG pCO2 ABG pO2 ABG HCO3 ABG O2 Content ABG Base Excess ABG Methemoglobin Shad Test Hemoglobin Carboxyhemoglobin O2 Delivery Device Liter Flow Critical Value Sodium Potassium Chloride Carbon Dioxide Anion Gap BUN Creatinine Estimated GFR POC Glucose 119 H Random Glucose Calcium Phosphorus Magnesium Total Bilirubin Direct Bilirubin Indirect Bilirubin AST ALT Alkaline Phosphatase Total Protein Albumin Tumor Marker AFP Urine Color Malina Urine Clarity Clear Urine pH 5.0 Ur Specific [place] 1.013 Urine Protein Negative Urine Glucose (UA) Negative Urine Ketones Negative Urine Occult Blood Negative Urine Nitrate Negative Urine Bilirubin Moderate Urine Ictotest Positive H Urine Urobilinogen 4 or greater Ur Leukocyte Esterase Negative Urine RBC Less than 1 Urine WBC 1 Ur Squamous Epith Cells <1 Hyaline Casts 1 Urine Mucus Few H Micro UA Comment Culture not ind Ur Microscopic Review Not Reportable Urine Culture Comments Culture not ind Blood Type A Negative Antibody Screen Negative MTS Gel Crossmatch See Detail Blood Bank Comment Bld Prod Order Comment 07/07/18 07/07/18 07/07/18 18:17 21:55 21:55 WBC 13.8 H RBC 2.55 L Hgb 8.7 L D Hct 24.7 L MCV 96.9 D MCH 34.1 H MCHC 35.2 RDW 22.9 H Plt Count 146 L MPV 7.9 PT INR Puncture Site Right radial Patient Temperature 98.6 O2 Saturation 82 L* ABG pH 7.45 H ABG pCO2 45 H ABG pO2 54 L* ABG HCO3 31 H ABG O2 Content 8.3 L ABG Base Excess 6.7 H ABG Methemoglobin 1.1 Shad Test Present Hemoglobin 7.2 L* Carboxyhemoglobin 4.0 O2 Delivery Device Sm Liter Flow 10.00 Critical Value Yes Sodium Potassium Chloride Carbon Dioxide Anion Gap BUN Creatinine Estimated GFR POC Glucose Random Glucose Calcium Phosphorus Magnesium Total Bilirubin Direct Bilirubin Indirect Bilirubin AST ALT Alkaline Phosphatase Total Protein Albumin Tumor Marker AFP 3.4 Urine Color Urine Clarity Urine pH Ur Specific [place] Urine Protein Urine Glucose (UA) Urine Ketones Urine Occult Blood Urine Nitrate Urine Bilirubin Urine Ictotest Urine Urobilinogen Ur Leukocyte Esterase Urine RBC Urine WBC Ur Squamous Epith Cells Hyaline Casts Urine Mucus Micro UA Comment Ur Microscopic Review Urine Culture Comments Blood Type Antibody Screen [employer] Blood Bank Comment Bld Prod Order Comment 07/07/18 07/08/18 07/08/18 21:55 05:41 05:41 WBC 13.7 H RBC 2.27 L Hgb 7.8 L Hct 22.4 L MCV 98.7 MCH 34.2 H MCHC 34.7 RDW 23.0 H Plt Count 122 L MPV 7.9 PT INR Puncture Site Patient Temperature O2 Saturation ABG pH ABG pCO2 ABG pO2 ABG HCO3 ABG O2 Content ABG Base Excess ABG Methemoglobin Shad Test Hemoglobin Carboxyhemoglobin O2 Delivery Device Liter Flow Critical Value Sodium 138 Potassium 3.2 L 3.4 L Chloride 102 Carbon Dioxide 30.9 Anion Gap 5 BUN 14 Creatinine 1.14 Estimated GFR 69 L POC Glucose Random Glucose 82 Calcium 7.9 L Phosphorus 3.4 Magnesium 1.8 Total Bilirubin 19.9 H Direct Bilirubin 5.6 H Indirect Bilirubin 14.3 H AST 46 H ALT 26 Alkaline Phosphatase 106 Total Protein 5.6 L D Albumin 2.8 L Tumor Marker AFP Urine Color Urine Clarity Urine pH Ur Specific [place] Urine Protein Urine Glucose (UA) Urine Ketones Urine Occult Blood Urine Nitrate Urine Bilirubin Urine Ictotest Urine Urobilinogen Ur Leukocyte Esterase Urine RBC Urine WBC Ur Squamous Epith Cells Hyaline Casts Urine Mucus Micro UA Comment Ur Microscopic Review Urine Culture Comments Blood Type Antibody Screen [place] Gel [employer] Blood Bank Comment Bld Prod Order Comment 07/08/18 07/08/18 05:41 09:12 WBC RBC Hgb Hct MCV MCH MCHC RDW Plt Count MPV PT 20.7 H INR 2.0 Puncture Site Patient Temperature O2 Saturation ABG pH ABG pCO2 ABG pO2 ABG HCO3 ABG O2 Content ABG Base Excess ABG Methemoglobin Shad Test Hemoglobin Carboxyhemoglobin O2 Delivery Device Liter Flow Critical Value Sodium Potassium Chloride Carbon Dioxide Anion Gap BUN Creatinine Estimated GFR POC Glucose Random Glucose Calcium Phosphorus Magnesium Total Bilirubin Direct Bilirubin Indirect Bilirubin AST ALT Alkaline Phosphatase Total Protein Albumin Tumor Marker AFP Urine Color Urine Clarity Urine pH Ur Specific [place] Urine Protein Urine Glucose (UA) Urine Ketones Urine Occult Blood Urine Nitrate Urine Bilirubin Urine Ictotest Urine Urobilinogen Ur Leukocyte Esterase Urine RBC Urine WBC Ur Squamous Epith Cells Hyaline Casts Urine Mucus Micro UA Comment Ur Microscopic Review Urine Culture Comments Blood Type Antibody Screen MTS Gel Crossmatch Blood Bank Comment Bld Prod Order Comment - Imaging Impressions Paracentesis Ultrasound 07/08/18 00:00 CONCLUSION: 1. Uncomplicated paracentesis. Chest X-Ray 07/08/18 06:00 CONCLUSION: Bilateral mostly basilar airspace disease with small effusions. Findings similar to July 07. <Vinnie Askew - Last Filed: 07/08/18 14:29> Assessment and Plan (1) Ascites Status: Acute Code(s): R18.8 - Other ascites (2) Alcoholic hepatitis Status: Acute Code(s): K70.10 - Alcoholic hepatitis without ascites (3) Coagulopathy Status: Acute Code(s): D68.9 - Coagulation defect, unspecified - Plan This patient is a 48-year-old male with past medical history significant for alcohol abuse, hypertension. Patient presented to the emergency room at [facility] for evaluation of abdominal distention and shortness of breath. Patient states that symptoms began 2 months ago accompanied by lower extremity edema. Increasing abdominal girth as well as edema also presented with shortness of breath. Patient states he has been jaundiced for about 2 months. States his urine has been darker over the last 2-3 months. He denies any noted bleeding, nausea or vomiting. Patient denies ever having had an EGD or colonoscopy in the past but does report occasional constipation for which he drinks fruit juice to alleviate symptoms. Patient denies any known family history of gastrointestinal disorders. He states he drinks 8-10 beers daily with a pint of rum daily as well. Upon consultation, patient reports that he has been a heavy drinker for the last 6-7 years. He denies any high risk sexual behaviors. Noted homemade tattoo right upper extremity patient states placed 25 years ago. Patient denies use of IV drugs. He does endorse use of marijuana occasionally. Our service has been consulted to evaluate patient for new onset liver failure and anemia New onset liver failure Anemia Likely alcoholic hepatitis as patient endorses drinking 8-10 beers daily in addition to 1 pint of liquor. Patient denies high risk sexual behavior, IV drug use or history of hepatitis C. 07/06/2018 CT of abdomen and pelvis-- 1. Large amount of abdominal ascites. 2. Splenomegaly. WBC 13.0 hemoglobin 5.8 hematocrit 16.9 platelet count 140 INR 1.9 total bilirubin 22.0 AST 61 ALT 34 alk phos 142 ammonia less than 10 lipase 341 AFP tumor marker 3.4 Coagulopathy likely due to alcoholic hepatitis-cirrhosis Plan -Liquid diet -Monitor for bleeding -Monitor hemoglobin hematocrit and coagulation studies -Monitor liver function tests -Transfuse as needed -IR consulted to evaluate patient for paracentesis -Discussed alcohol cessation -Supportive care -PPI -Antiemetics and analgesics as per attending -Continue IV antibiotics -Lactulose -Liver workup ordered -may consider liver biopsy -Further recommendations to follow This patient has been seen by myself and Dr. Askew and this note is written on his behalf - Attending Attestation Dr. Askew <Lawanda Morel - Last Filed: 07/07/18 15:06> (1) Ascites Status: Acute Code(s): R18.8 - Other ascites (2) Alcoholic hepatitis Status: Acute Code(s): K70.10 - Alcoholic hepatitis without ascites (3) Coagulopathy Status: Acute Code(s): D68.9 - Coagulation defect, unspecified - Plan Seen and examined, plan as above. Limited options with history of recent ETOH use, not a candidate for liver transplantation. Continue supportive care for now. Will follow up with you. Thank you for the consult. <Vinnie Askew - Last Filed: 07/08/18 14:29> <AdrielLawanda - Last Filed: 07/07/18 15:06> (1) Ascites Qualifiers: Ascites type: due to alcoholic hepatitis Qualified Code(s): K70.11 - Alcoholic hepatitis with ascites (2) Alcoholic hepatitis Qualifiers: Ascites presence: with ascites Qualified Code(s): K70.11 - Alcoholic hepatitis with ascites <Vinnie Askew - Last Filed: 07/08/18 14:29> (1) Ascites Qualifiers: Ascites type: due to alcoholic hepatitis Qualified Code(s): K70.11 - Alcoholic hepatitis with ascites (2) Alcoholic hepatitis Qualifiers: Ascites presence: with ascites Qualified Code(s): K70.11 - Alcoholic hepatitis with ascites
[2018-07-07] MEDS: Piperacil/Tazo 4.5 GM Premix 4.5 GM/100 ML BAG IV.SIG SCH ×2 (16:30→21:31)
[2018-07-07 16:54] LABS: Clarity,Urine Clear (Clear); Color,Urine Amber (Yellw/Straw); Glucose,Urine (UA) Negative (Negative); Hyaline Casts,Urine 1 /lpf (0-3); Leukocyte Esterase,Urine Negative (Negative); Mucus,Urine Few /lpf (Occasional); Nitrite,Urine Negative (Negative); Specific Gravity,Urine 1.013 (1.002-1.035); Squamous Epithelial Cell,Urine <1 /hpf (0-5); Urobilinogen,Urine 4 or Greater mg/dL (Less than 2)
[2018-07-07 16:56] LABS: Ictotest,Urine Positive (Negative)
[2018-07-07 16:58] LABS: Bilirubin,Urine Moderate (Negative)
[2018-07-07] MEDS: Vancomycin Inj 1,500 MG in Sodium Chlor 0.9% Inj 500 ML IV.SIG SCH (17:32)
[2018-07-07 18:26] LABS: ABG Base Excess 6.7 mmol/L (-2-2); ABG PCO2 45 mmHg (38-42); ABG PO2 54 mmHg (61-120)
[2018-07-07 22:22] LABS: Hematocrit 24.7 % (39.0-51.0); Hemoglobin 8.7 gm/dL (13.0-17.0); Mean Corpuscular HGB Conc 35.2 % (32.0-36.0); Mean Corpuscular Hemoglobin 34.1 pg (27.0-34.0); Mean Corpuscular Volume 96.9 fL (80.0-100.0); Mean Platelet Volume 7.9 fL (7.0-11.0); Platelet Count 146 th/mm3 (150-450); Red Blood Count 2.55 mil/mm3 (4.50-5.90); Red Cell Distribution Width 22.9 % (11.6-17.2); White Blood Count 13.8 th/mm3 (4.0-11.0)
[2018-07-08] MEDS: Potassium Chlor 10 mEq Premix 10 MEQ/100 ML PIGGYBACK IV.SIG SCH ×3 (02:36→05:23)
[2018-07-08] MEDS: Piperacil/Tazo 4.5 GM Premix 4.5 GM/100 ML BAG IV.SIG SCH ×4 (03:44→22:16)
--- NOTE | 2018-07-08 04:49 | XR ---
EXAM DATE: 07/08/2018 4:31 AM EST AGE/SEX: 48 years / Male INDICATIONS: Shortness of breath. CLINICAL DATA: This is the patient's subsequent encounter. Patient reports that signs and symptoms h ave been present for 2 days and indicates a pain score of Nonresponsive. MEDICAL/SURGICAL HISTORY: Hypertension. None. COMPARISON: [facility] – [place] 1V SINGLE AP, 07/07/2018. . FINDINGS: There is bilateral mostly basilar airspace disease. Small effusions. No pneumothorax. Heart size upper limits normal. CONCLUSION: Bilateral mostly basilar airspace disease with small effusions. Findings similar to July 07. Electronically signed by: Nick Barton MD 07/08/2018 4:48 AM EST
[2018-07-08 06:49] LABS: Hematocrit 22.4 % (39.0-51.0); Hemoglobin 7.8 gm/dL (13.0-17.0); Mean Corpuscular HGB Conc 34.7 % (32.0-36.0); Mean Corpuscular Hemoglobin 34.2 pg (27.0-34.0); Mean Corpuscular Volume 98.7 fL (80.0-100.0); Mean Platelet Volume 7.9 fL (7.0-11.0); Platelet Count 122 th/mm3 (150-450); Red Blood Count 2.27 mil/mm3 (4.50-5.90); White Blood Count 13.7 th/mm3 (4.0-11.0)
[2018-07-08 06:53] LABS: Prothrombin Time 20.7 sec (9.8-11.6)
[2018-07-08 07:09] LABS: Albumin 2.8 g/dL (3.4-5.0); Calcium 7.9 mg/dL (8.5-10.1); Carbon Dioxide 30.9 meq/L (21.0-32.0); Magnesium 1.8 mg/dL (1.5-2.5); Potassium 3.4 meq/L (3.5-5.1)
[2018-07-08 07:11] LABS: Phosphorus 3.4 mg/dL (2.5-4.9)
[2018-07-08 07:28] LABS: Total Protein 5.6 g/dL (6.4-8.2)
[2018-07-08] MEDS: Morphine Inj 4 MG/ML Vial IV.PUSH PRN ×3 (08:26→22:22)
[2018-07-08] MEDS: Folic Acid 1 MG Tablet PO SCH (08:27)
[2018-07-08] MEDS: Multivitamin/Minerals Therapeutic Tablet PO SCH (08:27)
[2018-07-08] MEDS ORDERED: Phytonadione 5 MG/SWFI 5 ML Oral Syringe PO ONE (10:00)
[2018-07-08] MEDS: Vancomycin Inj 1,500 MG in Sodium Chlor 0.9% Inj 500 ML IV.SIG SCH (10:50)
[2018-07-08] MEDS: Pantoprazole Inj 40 MG Vial IV.PUSH SCH ×2 (10:50→22:21)
[2018-07-08] MEDS ORDERED: Potassium Chloride 25 MEQ Effervescent Tablet PO ONE ×2 (11:00→19:53)
--- NOTE | 2018-07-08 11:02 | P.PNIM ---
Subjective Interval history: The patient was resting comfortably in bed. He said that his breathing felt better. He requested some more substantial food. He was looking forward to having his belly tapped. Discussed with nursing. Physical Exam Vital signs: Vital Signs 07/07/18 12:00 07/07/18 14:54 07/07/18 15:11 Temperature 98.4 F 97.4 F L 97.4 F L Pulse Rate 95 H 93 H 104 H Respiratory Rate 18 20 22 Blood Pressure 121/62 111/58 L 119/65 Pulse Oximetry 95 90 L 07/07/18 15:47 07/07/18 15:48 07/07/18 16:00 Temperature 98.2 F Pulse Rate 94 H 95 H 93 H Respiratory Rate 19 20 Blood Pressure 126/63 117/62 Pulse Oximetry 94 L 07/07/18 16:05 07/07/18 16:30 07/07/18 16:34 Temperature 98.7 F Pulse Rate 93 H 97 H Respiratory Rate 20 18 Blood Pressure 123/65 122/71 Pulse Oximetry 94 L 93 L 93 L 07/07/18 16:47 07/07/18 17:00 07/07/18 17:05 Temperature Pulse Rate 89 90 91 H Respiratory Rate 14 16 17 Blood Pressure 122/71 123/66 Pulse Oximetry 92 L 95 92 L 07/07/18 18:00 07/07/18 18:05 07/07/18 18:12 Temperature Pulse Rate 84 88 88 Respiratory Rate 11 L 15 17 Blood Pressure 121/71 121/71 Pulse Oximetry 91 L 90 L 92 L 07/07/18 18:28 07/07/18 18:42 07/07/18 18:44 Temperature 98.3 F Pulse Rate 85 88 Respiratory Rate 22 12 Blood Pressure 126/63 126/63 Pulse Oximetry 93 L 95 96 07/07/18 19:00 07/07/18 19:05 07/07/18 20:00 Temperature 98.3 F Pulse Rate 88 93 H 84 Respiratory Rate 14 22 12 Blood Pressure 127/62 Pulse Oximetry 95 95 98 07/07/18 20:05 07/07/18 21:00 07/07/18 21:05 Temperature Pulse Rate 84 86 86 Respiratory Rate 13 12 12 Blood Pressure 129/82 139/83 Pulse Oximetry 96 97 96 07/07/18 22:00 07/07/18 22:05 07/07/18 23:00 Temperature Pulse Rate 96 H 90 84 Respiratory Rate 22 20 15 Blood Pressure 128/59 L Pulse Oximetry 95 99 100 07/07/18 23:05 07/07/18 23:26 07/07/18 23:32 Temperature Pulse Rate 81 Respiratory Rate 12 18 Blood Pressure 116/59 L Pulse Oximetry 100 97 07/08/18 00:00 07/08/18 00:05 07/08/18 01:00 Temperature 98.6 F Pulse Rate 81 82 79 Respiratory Rate 12 12 12 Blood Pressure 136/74 Pulse Oximetry 95 96 96 07/08/18 01:05 07/08/18 02:00 07/08/18 02:05 Temperature Pulse Rate 79 85 83 Respiratory Rate 13 12 12 Blood Pressure 117/54 L 111/66 Pulse Oximetry 96 95 96 07/08/18 03:00 07/08/18 03:05 07/08/18 04:00 Temperature 98.3 F Pulse Rate 82 79 86 Respiratory Rate 12 12 16 Blood Pressure 106/61 Pulse Oximetry 99 97 96 07/08/18 04:05 07/08/18 05:00 07/08/18 05:05 Temperature Pulse Rate 80 79 78 Respiratory Rate 16 14 12 Blood Pressure 117/61 103/58 L Pulse Oximetry 96 96 92 L 07/08/18 06:00 07/08/18 06:05 07/08/18 08:23 Temperature Pulse Rate 77 80 79 Respiratory Rate 12 13 22 Blood Pressure 114/61 Pulse Oximetry 96 96 100 07/08/18 10:54 Temperature 97.9 F Pulse Rate 82 Respiratory Rate 19 Blood Pressure 110/86 Pulse Oximetry 94 L Intake & Output 07/07/18 07/08/18 07/08/18 18:59 06:59 18:59 Intake Total 700 / 700 2014 0 / 0 Output Total 700 / 700 Balance 700 / 700 1315 / 1315 0 / 0 Weight 91.9 kg Intake: IV 200 / 200 1015 / 1015 Flexbumin 25% Inj 100 ML @ 60 100 / 100 mls/hr IV.SIG ONCE ONE Rx#: [id number] Zosyn 4.5 GM Premix 4.5 gm In 100 / 100 200 / 200 100 ml @ 200 mls/hr IV.SIG Q6H NEY Rx#:[id number] KCl 10 mEq Premix Inj 10 meq In 300 / 300 100 ml @ 100 mls/hr IV.SIG Q1H NEY Rx#:[id number] Vancomycin Inj 1,500 MG In NS 515 / 515 Inj 500 ML @ 257.5 mls/hr IV. SIG Q18H NEY Rx#:[id number] Oral 600 / 600 Other 100 / 100 Rbc As-3 Leukoreduced Unit 100 / 100 [id number] Intake (Blood Product) Amt 400 / 400 400 / 400 0 / 0 Plasma Thawed 5 Day Acda Unit 0 / 0 [id number] Rbc As-3 Leukoreduced Unit 400 / 400 [id number] Rbc As-3 Leukoreduced Unit 0 / 0 400 / 400 [id number] Output: Urine 700 / 700 Other: Other Intake Source Rbc As-3 Leukoreduced Unit Saline Solution [id number] Date of Last Bowel Movement 07/07/18 # Bowel Movements 1 Narrative: Gen.: No acute distress. Positive jaundice. Head: Normocephalic. Atraumatic. EENT: Pupils equal round and reactive to light. Nose without drainage. Airway intact. Throat without injection. Positive scleral icterus. Cardiovascular: Regular rate and rhythm. No murmurs, rubs or gallops. Respiratory: Scattered rhonchi. Abdomen: Soft, markedly distended, nontender to palpation. No peritoneal signs. : Left inguinal hernia appreciated. Musculoskeletal: No gross deformities. + LE edema. Skin: No obvious rashes or erythema. Neuro: Sensory and motor grossly intact. Cranial nerves II through XII grossly intact. Results - Labs CBC & Chem 7: 07/08/18 05:41 07/08/18 05:41 Laboratory Results - last 24 hr 07/07/18 07/07/18 07/07/18 07:52 11:17 16:15 WBC RBC Hgb Hct MCV MCH MCHC RDW Plt Count MPV PT INR Puncture Site Patient Temperature O2 Saturation ABG pH ABG pCO2 ABG pO2 ABG HCO3 ABG O2 Content ABG Base Excess ABG Methemoglobin Shad Test Hemoglobin Carboxyhemoglobin O2 Delivery Device Liter Flow Critical Value Sodium Potassium Chloride Carbon Dioxide Anion Gap BUN Creatinine Estimated GFR POC Glucose Random Glucose Calcium Phosphorus Magnesium TIBC 214 L % Saturation 24.3 Ferritin 80 Total Bilirubin Direct Bilirubin Indirect Bilirubin AST ALT Alkaline Phosphatase Total Protein Albumin Tumor Marker AFP Vitamin B12 1542 H Folate 8.2 Urine Color Malina Urine Clarity Clear Urine pH 5.0 Ur Specific [place] 1.013 Urine Protein Negative Urine Glucose (UA) Negative Urine Ketones Negative Urine Occult Blood Negative Urine Nitrate Negative Urine Bilirubin Moderate Urine Ictotest Positive H Urine Urobilinogen 4 or greater Ur Leukocyte Esterase Negative Urine RBC Less than 1 Urine WBC 1 Ur Squamous Epith Cells <1 Hyaline Casts 1 Urine Mucus Few H Micro UA Comment Culture not ind Ur Microscopic Review Not Reportable Urine Culture Comments Culture not ind Blood Type A Negative Antibody Screen Negative MTS Gel Crossmatch See Detail Blood Bank Comment Bld Prod Order Comment 07/07/18 07/07/18 07/07/18 17:27 18:17 21:55 WBC RBC Hgb Hct MCV MCH MCHC RDW Plt Count MPV PT INR Puncture Site Right radial Patient Temperature 98.6 O2 Saturation 82 L* ABG pH 7.45 H ABG pCO2 45 H ABG pO2 54 L* ABG HCO3 31 H ABG O2 Content 8.3 L ABG Base Excess 6.7 H ABG Methemoglobin 1.1 Shad Test Present Hemoglobin 7.2 L* Carboxyhemoglobin 4.0 O2 Delivery Device Sm Liter Flow 10.00 Critical Value Yes Sodium Potassium Chloride Carbon Dioxide Anion Gap BUN Creatinine Estimated GFR POC Glucose 119 H Random Glucose Calcium Phosphorus Magnesium TIBC % Saturation Ferritin Total Bilirubin Direct Bilirubin Indirect Bilirubin AST ALT Alkaline Phosphatase Total Protein Albumin Tumor Marker AFP 3.4 Vitamin B12 Folate Urine Color Urine Clarity Urine pH Ur Specific [place] Urine Protein Urine Glucose (UA) Urine Ketones Urine Occult Blood Urine Nitrate Urine Bilirubin Urine Ictotest Urine Urobilinogen Ur Leukocyte Esterase Urine RBC Urine WBC Ur Squamous Epith Cells Hyaline Casts Urine Mucus Micro UA Comment Ur Microscopic Review Urine Culture Comments Blood Type Antibody Screen MTS Gel Crossmatch Blood Bank Comment Bld Prod Order Comment 07/07/18 07/07/18 07/08/18 21:55 21:55 05:41 WBC 13.8 H 13.7 H RBC 2.55 L 2.27 L Hgb 8.7 L D 7.8 L Hct 24.7 L 22.4 L MCV 96.9 D 98.7 MCH 34.1 H 34.2 H MCHC 35.2 34.7 RDW 22.9 H 23.0 H Plt Count 146 L 122 L MPV 7.9 7.9 PT INR Puncture Site Patient Temperature O2 Saturation ABG pH ABG pCO2 ABG pO2 ABG HCO3 ABG O2 Content ABG Base Excess ABG Methemoglobin Shad Test Hemoglobin Carboxyhemoglobin O2 Delivery Device Liter Flow Critical Value Sodium Potassium 3.2 L Chloride Carbon Dioxide Anion Gap BUN Creatinine Estimated GFR POC Glucose Random Glucose Calcium Phosphorus Magnesium TIBC % Saturation Ferritin Total Bilirubin Direct Bilirubin Indirect Bilirubin AST ALT Alkaline Phosphatase Total Protein Albumin Tumor Marker AFP Vitamin B12 Folate Urine Color Urine Clarity Urine pH Ur Specific [place] Urine Protein Urine Glucose (UA) Urine Ketones Urine Occult Blood Urine Nitrate Urine Bilirubin Urine Ictotest Urine Urobilinogen Ur Leukocyte Esterase Urine RBC Urine WBC Ur Squamous Epith Cells Hyaline Casts Urine Mucus Micro UA Comment Ur Microscopic Review Urine Culture Comments Blood Type Antibody Screen BackerKit Gel [employer] Blood Bank Comment Bld Prod Order Comment 07/08/18 07/08/18 07/08/18 05:41 05:41 09:12 WBC RBC Hgb Hct MCV MCH MCHC RDW Plt Count MPV PT 20.7 H INR 2.0 Puncture Site Patient Temperature O2 Saturation ABG pH ABG pCO2 ABG pO2 ABG HCO3 ABG O2 Content ABG Base Excess ABG Methemoglobin Shad Test Hemoglobin Carboxyhemoglobin O2 Delivery Device Liter Flow Critical Value Sodium 138 Potassium 3.4 L Chloride 102 Carbon Dioxide 30.9 Anion Gap 5 BUN 14 Creatinine 1.14 Estimated GFR 69 L POC Glucose Random Glucose 82 Calcium 7.9 L Phosphorus 3.4 Magnesium 1.8 TIBC % Saturation Ferritin Total Bilirubin 19.9 H Direct Bilirubin 5.6 H Indirect Bilirubin 14.3 H AST 46 H ALT 26 Alkaline Phosphatase 106 Total Protein 5.6 L D Albumin 2.8 L Tumor Marker AFP Vitamin B12 Folate Urine Color Urine Clarity Urine pH Ur Specific [place] Urine Protein Urine Glucose (UA) Urine Ketones Urine Occult Blood Urine Nitrate Urine Bilirubin Urine Ictotest Urine Urobilinogen Ur Leukocyte Esterase Urine RBC Urine WBC Ur Squamous Epith Cells Hyaline Casts Urine Mucus Micro UA Comment Ur Microscopic Review Urine Culture Comments Blood Type Antibody Screen BackerKit Gel [employer] Blood Bank Comment Bld Prod Order Comment Microbiology 07/07/18 12:09 Blood - Peripheral Aerobic Blood Culture - Preliminary gram negative rods 07/07/18 19:30 Stool Stool Occult Blood ([facility]) - Final Hemoccult negative - Imaging Impressions Chest X-Ray 07/07/18 10:19 CONCLUSION: Bilateral infiltrates and effusions Chest X-Ray 07/08/18 06:00 CONCLUSION: Bilateral mostly basilar airspace disease with small effusions. Findings similar to July 07. Assessment and Plan - Plan Ascites/jaundice Likely secondary to liver failure from alcohol abuse. Hepatitis profile negative. CT of the abdomen/pelvis with ascites. AFP 3.4. GI consult appreciated. -Paracentesis pending. FFP ordered. -GI following. -s/p IV albumin. -follow LFTs. -clear liquids for now. Advance diet following paracentesis. Severe anemia The pt states he has blood in his urine, but that is likely s/t elevated bilirubin levels. UA negative for blood. Improved after two units of red cells. Hemoccult negative. -follow CBC and transfuse as needed. Alcohol abuse Reports drinking 8-10 beers daily with 1 pint of hard liquor. -CIWA protocol. -cessation instruction. Acute respiratory failure CXR with bilateral infiltrates and effusions. -oxygen and nebs as needed. -BiPAP as needed. -continue vancomycin and Zosyn. -Lasix 40 mg IV BID. Acute renal failure Improved. -follow BMP and avoid nephrotoxins. -albumin. Hypokalemia Likely s/t decreased PO intake. Exacerbated by Lasix. -replete and monitor. Bacteremia GNR in one blood culture bottle. Concern for SBP. -continue antibiotics. -ID consult requested. PPx: SCDs
[2018-07-08] MEDS ORDERED: Albumin Human 25% Inj 250 ML IV.SIG ONE (13:41)
--- NOTE | 2018-07-08 13:46 | US ---
EXAM DATE: 07/08/2018 1:20 PM EST AGE/SEX: 48 years / Male INDICATIONS: Ascites. CLINICAL DATA: This is the patient's initial encounter. Patient reports that signs and symptoms have been present for 1 day and indicates a pain score of 0/10. MEDICAL/SURGICAL HISTORY: Hypertension. Alcoholism/ alcohol abuse. Kidney capsule rupture. . H and surgery. Knee surgery. [place] [facility] [place]AST, 07/06/2018. . [place]UID: [place] [address] cc of clear, yellow fluid was removed. Fluid was discarded. Paracentesis was th erapeutic only. . . TECHNIQUE: Ultrasound guidance for abdominal paracentesis. Paracentesis. The risks, benefits, and alternatives to ultrasound guided paracentesis were explained to the patient in detail including the risk of bleeding and infection. Written and verbal informed consent was obt ained. With the patient on the ultrasound table, ultrasound imaging was used to select the most appropriate approach for paracentesis. Overlying skin was prepped and draped in the usual sterile fashion and wi th a local anesthetic, a dermatotomy was made with an 11 blade scalpel. A 6 Divehi [id number] ca theter was introduced into the peritoneal cavity and fluid was collected. Post procedure scanning reveals no hematoma or other complication. The patient tolerated the procedu re well and left the ultrasound suite in stable condition. FINDINGS: Adequate fluid for paracentesis. CONCLUSION: 1. Uncomplicated paracentesis. Electronically signed by: Lc Rodas MD 07/08/2018 1:44 PM EST
[2018-07-08 17:23] LABS: Baso # (Auto) 0.2 th/mm3 (0.0-0.2); Baso % (Auto) 1.9 % (0.0-2.0); Eos # (Auto) 0.4 th/mm3 (0.0-0.4); Eos % (Auto) 4.4 % (0.0-4.0); Hemoglobin 7.4 gm/dL (13.0-17.0); Lymph # (Auto) 1.3 th/mm3 (1.0-4.8); Lymph % (Auto) 15.1 % (9.0-44.0); Mean Corpuscular HGB Conc 35.5 % (32.0-36.0); Mean Corpuscular Hemoglobin 34.9 pg (27.0-34.0); Mean Corpuscular Volume 98.3 fL (80.0-100.0); Mono % (Auto) 12.4 % (0.0-8.0); Neut # (Auto) 5.6 th/mm3 (1.8-7.7); Neut % (Auto) 66.2 % (16.0-70.0); Platelet Count 103 th/mm3 (150-450); Red Blood Count 2.11 mil/mm3 (4.50-5.90); Red Cell Distribution Width 23.7 % (11.6-17.2); White Blood Count 8.5 th/mm3 (4.0-11.0)
[2018-07-08 17:24] LABS: INR 2.3 Ratio; Prothrombin Time 23.4 sec (9.8-11.6)
[2018-07-08 17:33] LABS: Hematocrit 20.7 % (39.0-51.0)
[2018-07-08 17:53] LABS: Acanthocytes 1+; Burr Cells 1+; Ovalocytes 1+; Platelet Morphology Normal (Normal)
--- NOTE | 2018-07-08 19:55 | P.CONID ---
History of Present Illness Service: ID Consult date: 07/08/18 Requesting Physician: Brock Smyth Reason for Consult: Bacteremia, concern for SBP, PNA Primary Care Provider: No Primary Care Physician History of Present Illness: 48 yo wth h/o heavy ETOH abused presented with edema, dark urine and tight ascites 10 L of fluid was removed and discarded He presented with no fever, but has leukocytosis up to 13 K Blood cultures is + for Enterobacter Urine had no bloodm, but + bilkirubin on zosyn, vancomycin PMFSH - History History Provided By: Patient - Medical History Medical History: Medical History (Last Reviewed 07/06/18 @ 23:22 by Yesenia Denis MD) Alcoholism /alcohol abuse Hypertension Kidney capsule rupture - Surgical History Surgical History: Surgical History (Last Updated 07/06/18 @ 23:23 by Yesenia Denis MD) History of hand surgery History of knee surgery - Family History Family History: Family History (Last Updated 07/06/18 @ 23:23 by Yesenia Denis MD) Other Diabetes mellitus - Tobacco History Second Hand Smoke Exposure: No Tobacco Use In Past 30 Days: Yes Smoking Status: Former smoker Tobacco Type: Cigarettes - Alcohol History How Often Do You Have a Drink Containing Alcohol: 4 or more times a week - Substance Use History Substance History: No History of Abuse - Travel History Recent Travel in the [place] Within the Last 8 Weeks: No Recent Travel Out of the Country Within the Last 8 Weeks: No - Immunization History Tetanus Immunization: <5 Years Hx Influenza Vaccine This Season: No Medications and Allergies Active Medications: Active Medications Albuterol (Duoneb Neb (Bird)) 1 ampul NEB Q6HR WHILE AWAKE NEB [facility] Last Admin: 07/08/18 14:34 Dose: 1 ampul Bisacodyl (Dulcolax Supp) 10 mg RECTAL DAILY PRN PRN Reason: SEVERE CONSITIPATION Calcium Carbonate (Tums Chew) 500 mg CHEW Q2H PRN PRN Reason: INDIGESTION Last Admin: 07/08/18 02:09 Dose: 500 mg Flumazenil (Romazecon Inj) 0.2 mg IV.PUSH Q1M PRN PRN Reason: OVERSEDATION Folic Acid (Folic Acid) 1 mg PO DAILY [facility] Stop: 07/12/18 08:59 Last Admin: 07/08/18 08:27 Dose: 1 mg Furosemide (Lasix Inj) 40 mg IV.PUSH BID@0900,1800 [facility] Last Admin: 07/08/18 17:11 Dose: 40 mg Haloperidol Lactate (Haldol Inj) 1 mg IV.PUSH Q15M PRN PRN Reason: for severe agitation Piperacillin/Tazobactam/Dextrose (Zosyn 4.5 Gm Premix) 4.5 gm in 100 mls @ 200 mls/hr IV.SIG Q6H BIRD Last Admin: 07/08/18 17:10 Dose: 200 mls/hr Vancomycin HCl 1,500 mg/ (Sodium Chloride) 515 mls @ 257.5 mls/hr IV.SIG Q18H BIRD Last Admin: 07/08/18 10:50 Dose: 250 mls/hr Lorazepam (Ativan) 1 mg PO Q4H PRN PRN Reason: for CIWA 8-10 Lorazepam (Ativan) 2 mg PO Q2H PRN PRN Reason: for CIWA 11-14 Lorazepam (Ativan Inj) 2 mg IV.PUSH Q2H PRN PRN Reason: for CIWA 11-14 Lorazepam (Ativan Inj) 2 mg IV.PUSH Q1H PRN PRN Reason: for CIWA 15-20 Lorazepam (Ativan Inj) 2 mg IV.PUSH Q15M PRN PRN Reason: for CIWA > 20 Lorazepam (Ativan Inj) 1 mg IV.PUSH Q4H PRN PRN Reason: for CIWA 8-10 Miscellaneous Information ([facility] Ordered Lab Info) 0 each OTHER ONCE ONE Stop: 07/09/18 22:46 Morphine Sulfate (Morphine Inj) 4 mg IV.PUSH Q4H PRN PRN Reason: ABDOMINAL PAIN Last Admin: 07/08/18 17:19 Dose: 4 mg Multivitamins/Minerals (Theragran-M) 1 tab PO DAILY [facility] Stop: 07/12/18 08:59 Last Admin: 07/08/18 08:27 Dose: 1 tab Ondansetron HCl (Zofran Inj) 4 mg IV.PUSH Q6H PRN PRN Reason: NAUSEA OR VOMITING Pantoprazole Sodium (Protonix Inj) 40 mg IV.PUSH Q12H BIRD Last Admin: 07/08/18 10:50 Dose: 40 mg Pharmacy Profile Note (Vancomycin Consult Pharmacy) 1 each OTHER UNSCH PRN PRN Reason: Pharmacy to dose Potassium Bicarb/Potassium Chloride (K-Lyte Cl Eff) 50 meq PO ONCE ONE Stop: 07/08/18 19:54 Sennosides (Senokot) 17.2 mg PO Q12H PRN PRN Reason: Moderate Constipation Thiamine HCl (Vitamin B1) 100 mg PO DAILY [facility] Last Admin: 07/08/18 08:27 Dose: 100 mg Allergies Allergy/AdvReac Type Severity Reaction Status Date / Time No Known Allergies Allergy Verified 07/06/18 19:55 Home Medications Medication Instructions Recorded Confirmed Type No Known Home Medications 07/06/18 07/06/18 History Exam Vital signs: Vital Signs 07/07/18 20:00 07/07/18 20:05 07/07/18 21:00 Temperature 98.3 F Pulse Rate 84 84 86 Respiratory Rate 12 13 12 Blood Pressure 129/82 Pulse Oximetry 98 96 97 07/07/18 21:05 07/07/18 22:00 07/07/18 22:05 Temperature Pulse Rate 86 96 H 90 Respiratory Rate 12 22 20 Blood Pressure 139/83 128/59 L Pulse Oximetry 96 95 99 07/07/18 23:00 07/07/18 23:05 07/07/18 23:26 Temperature Pulse Rate 84 81 Respiratory Rate 15 12 18 Blood Pressure 116/59 L Pulse Oximetry 100 100 07/07/18 23:32 07/08/18 00:00 07/08/18 00:05 Temperature 98.6 F Pulse Rate 81 82 Respiratory Rate 12 12 Blood Pressure 136/74 Pulse Oximetry 97 95 96 07/08/18 01:00 07/08/18 01:05 07/08/18 02:00 Temperature Pulse Rate 79 79 85 Respiratory Rate 12 13 12 Blood Pressure 117/54 L Pulse Oximetry 96 96 95 07/08/18 02:05 07/08/18 03:00 07/08/18 03:05 Temperature Pulse Rate 83 82 79 Respiratory Rate 12 12 12 Blood Pressure 111/66 106/61 Pulse Oximetry 96 99 97 07/08/18 04:00 07/08/18 04:05 07/08/18 05:00 Temperature 98.3 F Pulse Rate 86 80 79 Respiratory Rate 16 16 14 Blood Pressure 117/61 Pulse Oximetry 96 96 96 07/08/18 05:05 07/08/18 06:00 07/08/18 06:05 Temperature Pulse Rate 78 77 80 Respiratory Rate 12 12 13 Blood Pressure 103/58 L 114/61 Pulse Oximetry 92 L 96 96 07/08/18 08:23 07/08/18 10:54 07/08/18 11:50 Temperature 97.9 F 97.9 F Pulse Rate 79 82 87 Respiratory Rate 22 19 24 Blood Pressure 110/86 121/69 Pulse Oximetry 100 94 L 94 L 07/08/18 13:19 07/08/18 14:35 Temperature 98.2 F Pulse Rate 67 86 Respiratory Rate 19 20 Blood Pressure 104/55 L Pulse Oximetry 96 Intake & Output 07/08/18 07/08/18 07/09/18 06:59 18:59 06:59 Intake Total 2014 574 / 574 Output Total 700 / 700 Balance 1315 / 1315 574 / 574 Weight 91.9 kg Intake: IV 1015 / 1015 100 / 100 Zosyn 4.5 GM Premix 4.5 gm In 200 / 200 100 / 100 100 ml @ 200 mls/hr IV.SIG Q6H BIRD Rx#:[id number] KCl 10 mEq Premix Inj 10 meq In 300 / 300 100 ml @ 100 mls/hr IV.SIG Q1H BIRD Rx#:[id number] Vancomycin Inj 1,500 MG In NS 515 / 515 Inj 500 ML @ 257.5 mls/hr IV. SIG Q18H BIRD Rx#:[id number] Oral 600 / 600 Other 250 / 250 Plasma Thawed 5 Day Acda Unit 250 / 250 [id number] Intake (Blood Product) Amt 400 / 400 224 / 224 Plasma Thawed 5 Day Acda Unit 224 / 224 [id number] Rbc As-3 Leukoreduced Unit 400 / 400 [id number] Output: Urine 700 / 700 Other: Date of Last Bowel Movement 07/07/18 07/07/18 # Bowel Movements 1 - Constitutional no acute distress, average body habitus, chronically ill appearing - Routine HEENT Exam Head: Present: normocephalic, atraumatic Eye: Present: EOMI, PERRL, conjunctival icterus ENT: Present: mucous membranes dry, oropharynx clear - Routine Neck Exam Present: supple. Absent: JVD - Routine Respiratory Exam Present: decreased breath sounds, CTA bilaterally - Routine Cardiovascular Exam Present: RRR, S1, S2. Absent: murmur, gallop, rubs - Routine Abdominal Exam Present: soft, normoactive bowel sounds, distended, firm. Absent: tenderness, guarding, organomegaly, mass Comments: large asciteds, puncture site from paracenthesis is draining serous fluid - Routine Extremities Exam Present: edema (3+ puffy). Absent: cyanosis, clubbing - Routine Skin Exam Present: lesions (teleangiectasy), jaundice - Routine Neurological Exam Present: alert, oriented X3, CN II-XII intact. Absent: sensory deficit, motor deficit - Routine Psychiatric Exam Present: normal affect, cooperative Results - Labs CBC & Chem 7: 07/08/18 17:04 07/08/18 17:04 Labs: Laboratory Results - last 24 hr 07/07/18 07/07/18 07/07/18 11:17 21:55 21:55 WBC 13.8 H RBC 2.55 L Hgb 8.7 L D Hct 24.7 L MCV 96.9 D MCH 34.1 H MCHC 35.2 RDW 22.9 H Plt Count 146 L MPV 7.9 Prelim Diff (Auto) Neut % (Auto) Lymph % (Auto) [place] % (Auto) Eos % (Auto) Baso % (Auto) Neut # (Auto) Lymph # (Auto) [place] # (Auto) Eos # (Auto) Baso # (Auto) WBC Differential Diff Scan Differential Comment Platelet Estimate Platelet Morphology Ovalocytes Stitzer Cells Acanthocytes (Spur) Keratocytes PT INR Sodium Potassium Chloride Carbon Dioxide Anion Gap BUN Creatinine Estimated GFR Random Glucose Calcium Phosphorus Magnesium Total Bilirubin Direct Bilirubin Indirect Bilirubin AST ALT Alkaline Phosphatase Total Protein Albumin Tumor Marker AFP 3.4 MTS Gel Crossmatch See Detail Blood Bank Comment 07/07/18 07/08/18 07/08/18 21:55 05:41 05:41 WBC 13.7 H RBC 2.27 L Hgb 7.8 L Hct 22.4 L MCV 98.7 MCH 34.2 H MCHC 34.7 RDW 23.0 H Plt Count 122 L MPV 7.9 Prelim Diff (Auto) Neut % (Auto) Lymph % (Auto) [place] % (Auto) Eos % (Auto) Baso % (Auto) Neut # (Auto) Lymph # (Auto) [place] # (Auto) Eos # (Auto) Baso # (Auto) WBC Differential Diff Scan Differential Comment Platelet Estimate Platelet Morphology Ovalocytes Anderw Cells Acanthocytes (Spur) Keratocytes PT INR Sodium 138 Potassium 3.2 L 3.4 L Chloride 102 Carbon Dioxide 30.9 Anion Gap 5 BUN 14 Creatinine 1.14 Estimated GFR 69 L Random Glucose 82 Calcium 7.9 L Phosphorus 3.4 Magnesium 1.8 Total Bilirubin 19.9 H Direct Bilirubin 5.6 H Indirect Bilirubin 14.3 H AST 46 H ALT 26 Alkaline Phosphatase 106 Total Protein 5.6 L D Albumin 2.8 L Tumor Marker AFP [facility] Comment 07/08/18 07/08/18 07/08/18 05:41 09:12 17:04 WBC RBC Hgb Hct MCV MCH MCHC RDW Plt Count MPV Prelim Diff (Auto) Neut % (Auto) Lymph % (Auto) [place] % (Auto) Eos % (Auto) Baso % (Auto) Neut # (Auto) Lymph # (Auto) [place] # (Auto) Eos # (Auto) Baso # (Auto) WBC Differential Diff Scan Differential Comment Platelet Estimate Platelet Morphology Ovalocytes Stitzer Cells Acanthocytes (Spur) Keratocytes PT 20.7 H INR 2.0 Sodium Potassium 3.2 L Chloride Carbon Dioxide Anion Gap BUN Creatinine Estimated GFR Random Glucose Calcium Phosphorus Magnesium Total Bilirubin Direct Bilirubin Indirect Bilirubin AST ALT Alkaline Phosphatase Total Protein Albumin Tumor Marker [facility] Comment 07/08/18 07/08/18 17:04 17:04 WBC 8.5 RBC 2.11 L Hgb 7.4 L Hct 20.7 L* MCV 98.3 MCH 34.9 H MCHC 35.5 RDW 23.7 H Plt Count 103 L MPV 8.0 Prelim Diff (Auto) Slide review pending Neut % (Auto) 66.2 Lymph % (Auto) 15.1 [place] % (Auto) 12.4 H Eos % (Auto) 4.4 H Baso % (Auto) 1.9 Neut # (Auto) 5.6 Lymph # (Auto) 1.3 [place] # (Auto) 1.0 H Eos # (Auto) 0.4 Baso # (Auto) 0.2 WBC Differential . Diff Scan Auto diff confirmed Differential Comment . Platelet Estimate Low L Platelet Morphology Normal Ovalocytes 1+ H Stitzer Cells 1+ H Acanthocytes (Spur) 1+ H Keratocytes 1+ H PT 23.4 H INR 2.3 Sodium Potassium Chloride Carbon Dioxide Anion Gap BUN Creatinine Estimated GFR Random Glucose Calcium Phosphorus Magnesium Total Bilirubin Direct Bilirubin Indirect Bilirubin AST ALT Alkaline Phosphatase Total Protein Albumin Tumor Marker AFP MTS Gel Crossmatch Blood Bank Comment - Imaging Impressions Paracentesis Ultrasound 07/08/18 00:00 CONCLUSION: 1. Uncomplicated paracentesis. Chest X-Ray 07/08/18 06:00 CONCLUSION: Bilateral mostly basilar airspace disease with small effusions. Findings similar to July 07. Assessment and Plan - Plan Enterobacter bacteremia in a pt with ESLD 2/2 ETOH source is likley SBP, clean urine cont zosyn dc vancomycin fu senssies on Enterobacter, then will give final recs
[2018-07-09] MEDS: Morphine Inj 4 MG/ML Vial IV.PUSH PRN ×4 (04:30→21:44)
[2018-07-09] MEDS: Piperacil/Tazo 4.5 GM Premix 4.5 GM/100 ML BAG IV.SIG SCH ×4 (04:30→23:18)
[2018-07-09 06:23] LABS: Baso # (Auto) 0.2 th/mm3 (0.0-0.2); Baso % (Auto) 1.7 % (0.0-2.0); Eos # (Auto) 0.5 th/mm3 (0.0-0.4); Eos % (Auto) 5.4 % (0.0-4.0); Hematocrit 22.4 % (39.0-51.0); Hemoglobin 7.8 gm/dL (13.0-17.0); Lymph # (Auto) 1.7 th/mm3 (1.0-4.8); Lymph % (Auto) 18.4 % (9.0-44.0); Mean Corpuscular HGB Conc 34.9 % (32.0-36.0); Mean Corpuscular Hemoglobin 34.1 pg (27.0-34.0); Mean Corpuscular Volume 97.8 fL (80.0-100.0); Mean Platelet Volume 8.1 fL (7.0-11.0); Mono # (Auto) 0.9 th/mm3 (0.0-0.9); Mono % (Auto) 10.2 % (0.0-8.0); Neut # (Auto) 5.9 th/mm3 (1.8-7.7); Neut % (Auto) 64.3 % (16.0-70.0); Platelet Count 110 th/mm3 (150-450); Red Blood Count 2.29 mil/mm3 (4.50-5.90); White Blood Count 9.1 th/mm3 (4.0-11.0)
[2018-07-09 06:28] LABS: Prothrombin Time 20.6 sec (9.8-11.6)
[2018-07-09 06:45] LABS: Albumin 2.8 g/dL (3.4-5.0); Calcium 7.8 mg/dL (8.5-10.1); Magnesium 1.7 mg/dL (1.5-2.5); Potassium 3.5 meq/L (3.5-5.1)
[2018-07-09 06:55] LABS: Total Protein 5.5 g/dL (6.4-8.2)
[2018-07-09 07:09] LABS: Polychromasia 2.9 % (0.0-1.9)
[2018-07-09 07:10] LABS: Acanthocytes 1+; Platelet Morphology Normal (Normal)
[2018-07-09 07:11] LABS: Dimorphic RBC Present
[2018-07-09] MEDS: Folic Acid 1 MG Tablet PO SCH (08:56)
[2018-07-09] MEDS: Multivitamin/Minerals Therapeutic Tablet PO SCH (08:58)
[2018-07-09] MEDS: Pantoprazole Inj 40 MG Vial IV.PUSH SCH ×3 (08:58→23:52)
--- NOTE | 2018-07-09 13:16 | P.PNGI ---
Subjective Interval history: Patient awake and alert Denies abdominal pain Post paracentesis <Lawanda Morel - Last Filed: 07/09/18 13:10> Physical Exam Vital signs: Vital Signs 07/08/18 13:17 07/08/18 13:19 07/08/18 13:32 Temperature 98.2 F Pulse Rate 78 67 76 Respiratory Rate 15 19 12 Blood Pressure 103/59 L 104/55 L 103/58 L Pulse Oximetry 95 96 95 07/08/18 13:47 07/08/18 14:00 07/08/18 14:02 Temperature Pulse Rate 86 51 L 42 L Respiratory Rate 13 10 L 13 Blood Pressure 124/66 90/53 L Pulse Oximetry 90 L 95 94 L 07/08/18 14:17 07/08/18 14:30 07/08/18 14:35 Temperature Pulse Rate 82 69 86 Respiratory Rate 40 H 22 20 Blood Pressure 88/50 L 102/51 L Pulse Oximetry 94 L 98 07/08/18 14:40 07/08/18 14:50 07/08/18 15:00 Temperature Pulse Rate 85 83 81 Respiratory Rate 19 21 10 L Blood Pressure 102/52 L 108/51 L 106/56 L Pulse Oximetry 94 L 96 94 L 07/08/18 15:10 07/08/18 15:20 07/08/18 15:30 Temperature Pulse Rate 81 81 80 Respiratory Rate 8 L 11 L 14 Blood Pressure 96/54 L 103/52 L 107/55 L Pulse Oximetry 97 100 98 07/08/18 15:40 07/08/18 15:50 07/08/18 16:00 Temperature Pulse Rate 75 71 72 Respiratory Rate 12 6 L 8 L Blood Pressure 110/55 L 107/53 L 109/55 L Pulse Oximetry 95 97 96 07/08/18 16:10 07/08/18 16:20 07/08/18 16:30 Temperature Pulse Rate 72 72 71 Respiratory Rate 12 7 L 9 L Blood Pressure 100/54 L 100/52 L 104/57 L Pulse Oximetry 96 96 94 L 07/08/18 16:40 07/08/18 16:50 07/08/18 17:00 Temperature Pulse Rate 76 73 79 Respiratory Rate 12 6 L 11 L Blood Pressure 108/54 L 92/50 L Pulse Oximetry 85 L 98 94 L 07/08/18 17:11 07/08/18 18:00 07/08/18 19:00 Temperature Pulse Rate 50 L 79 90 Respiratory Rate 45 H 25 H 34 H Blood Pressure 97/53 L Pulse Oximetry 91 L 96 95 07/08/18 20:00 07/08/18 20:24 07/08/18 21:00 Temperature Pulse Rate 86 81 101 H Respiratory Rate 22 16 17 Blood Pressure Pulse Oximetry 95 90 L 07/08/18 22:00 07/08/18 23:00 07/08/18 23:24 Temperature Pulse Rate 83 95 H 80 Respiratory Rate 12 34 H 10 L Blood Pressure 92/43 L Pulse Oximetry 95 92 L 93 L 07/09/18 00:00 07/09/18 01:00 07/09/18 01:03 Temperature Pulse Rate 82 86 87 Respiratory Rate 11 L 19 24 Blood Pressure 95/52 L 86/50 L 103/52 L Pulse Oximetry 88 L 88 L 90 L 07/09/18 02:00 07/09/18 03:00 07/09/18 04:00 Temperature Pulse Rate 87 93 H 84 Respiratory Rate 26 H 35 H 9 L Blood Pressure 89/50 L 94/42 L 102/54 L Pulse Oximetry 88 L 94 L 89 L 07/09/18 05:00 07/09/18 06:00 07/09/18 07:00 Temperature Pulse Rate 88 82 89 Respiratory Rate 17 8 L 13 Blood Pressure 126/64 123/69 96/50 L Pulse Oximetry 90 L 91 L 89 L 07/09/18 08:00 07/09/18 08:42 07/09/18 08:57 Temperature 98.7 F Pulse Rate 87 92 H Respiratory Rate 16 21 Blood Pressure 86/58 L Pulse Oximetry 83 L 92 L 07/09/18 09:00 07/09/18 10:00 07/09/18 11:00 Temperature Pulse Rate 100 H 89 94 H Respiratory Rate 22 16 9 L Blood Pressure 91/47 L 96/66 L 100/55 L Pulse Oximetry 94 L 88 L 93 L 07/09/18 11:17 Temperature Pulse Rate Respiratory Rate Blood Pressure Pulse Oximetry 95 Intake & Output 07/08/18 07/09/18 07/09/18 18:59 06:59 18:59 Intake Total 1544 / 1544 1295 / 1295 100 / 100 Output Total 800 / 800 Balance 1544 / 1544 495 / 495 100 / 100 Weight 84.1 kg Intake: IV 350 / 350 815 / 815 100 / 100 Zosyn 4.5 GM Premix 4.5 gm In 100 / 100 300 / 300 100 / 100 100 ml @ 200 mls/hr IV.SIG Q6H NEY Rx#:[id number] Vancomycin Inj 1,500 MG In NS 515 / 515 Inj 500 ML @ 257.5 mls/hr IV. SIG Q18H NEY Rx#:[id number] Oral 720 / 720 480 / 480 Other 250 / 250 Plasma Thawed 5 Day Acda Unit 250 / 250 [id number] Intake (Blood Product) Amt 224 / 224 Plasma Thawed 5 Day Acda Unit 224 / 224 [id number] Output: Urine 800 / 800 Other: # Voids 4 Date of Last Bowel Movement 07/07/18 07/07/18 # Bowel Movements 0 0 - Constitutional chronically ill appearing - Routine HEENT Exam Head: Present: normocephalic Eye: Present: conjunctival icterus - Routine Respiratory Exam Present: CTA bilaterally Comments: 2 L nasal cannula - Routine Cardiovascular Exam Present: RRR - Routine Abdominal Exam Present: soft, normoactive bowel sounds, distended. Absent: tenderness, guarding, firm Comments: Patient post paracentesis - Routine Skin Exam Present: dry, warm, jaundice - Routine Neurological Exam Present: alert <Morel,Lawanda - Last Filed: 07/09/18 13:10> Vital signs: Vital Signs 07/08/18 15:50 07/08/18 16:00 07/08/18 16:10 Temperature Pulse Rate 71 72 72 Respiratory Rate 6 L 8 L 12 Blood Pressure 107/53 L 109/55 L 100/54 L Pulse Oximetry 97 96 96 07/08/18 16:20 07/08/18 16:30 07/08/18 16:40 Temperature Pulse Rate 72 71 76 Respiratory Rate 7 L 9 L 12 Blood Pressure 100/52 L 104/57 L 108/54 L Pulse Oximetry 96 94 L 85 L 07/08/18 16:50 07/08/18 17:00 07/08/18 17:11 Temperature Pulse Rate 73 79 50 L Respiratory Rate 6 L 11 L 45 H Blood Pressure 92/50 L 97/53 L Pulse Oximetry 98 94 L 91 L 07/08/18 18:00 07/08/18 19:00 07/08/18 20:00 Temperature Pulse Rate 79 90 86 Respiratory Rate 25 H 34 H 22 Blood Pressure Pulse Oximetry 96 95 95 07/08/18 20:24 07/08/18 21:00 07/08/18 22:00 Temperature Pulse Rate 81 101 H 83 Respiratory Rate 16 17 12 Blood Pressure Pulse Oximetry 90 L 95 07/08/18 23:00 07/08/18 23:24 07/09/18 00:00 Temperature Pulse Rate 95 H 80 82 Respiratory Rate 34 H 10 L 11 L Blood Pressure 92/43 L 95/52 L Pulse Oximetry 92 L 93 L 88 L 07/09/18 01:00 07/09/18 01:03 07/09/18 02:00 Temperature Pulse Rate 86 87 87 Respiratory Rate 19 24 26 H Blood Pressure 86/50 L 103/52 L 89/50 L Pulse Oximetry 88 L 90 L 88 L 07/09/18 03:00 07/09/18 04:00 07/09/18 05:00 Temperature Pulse Rate 93 H 84 88 Respiratory Rate 35 H 9 L 17 Blood Pressure 94/42 L 102/54 L 126/64 Pulse Oximetry 94 L 89 L 90 L 07/09/18 06:00 07/09/18 07:00 07/09/18 08:00 Temperature 98.7 F Pulse Rate 82 89 87 Respiratory Rate 8 L 13 16 Blood Pressure 123/69 96/50 L 86/58 L Pulse Oximetry 91 L 89 L 83 L 07/09/18 08:42 07/09/18 08:57 07/09/18 09:00 Temperature Pulse Rate 92 H 100 H Respiratory Rate 21 22 Blood Pressure 91/47 L Pulse Oximetry 92 L 94 L 07/09/18 10:00 07/09/18 11:00 07/09/18 11:17 Temperature Pulse Rate 89 94 H Respiratory Rate 16 9 L Blood Pressure 96/66 L 100/55 L Pulse Oximetry 88 L 93 L 95 07/09/18 14:05 Temperature Pulse Rate 89 Respiratory Rate 17 Blood Pressure Pulse Oximetry Intake & Output 07/08/18 07/09/18 07/09/18 18:59 06:59 18:59 Intake Total 1544 / 1544 1295 / 1295 100 / 100 Output Total 800 / 800 Balance 1544 / 1544 495 / 495 100 / 100 Weight 84.1 kg Intake: IV 350 / 350 815 / 815 100 / 100 Zosyn 4.5 GM Premix 4.5 gm In 100 / 100 300 / 300 100 / 100 100 ml @ 200 mls/hr IV.SIG Q6H NEY Rx#:[id number] Vancomycin Inj 1,500 MG In NS 515 / 515 Inj 500 ML @ 257.5 mls/hr IV. SIG Q18H NEY Rx#:[id number] Oral 720 / 720 480 / 480 Other 250 / 250 Plasma Thawed 5 Day Acda Unit 250 / 250 [id number] Intake (Blood Product) Amt 224 / 224 Plasma Thawed 5 Day Acda Unit 224 / 224 [id number] Output: Urine 800 / 800 Other: # Voids 4 Date of Last Bowel Movement 07/07/18 07/07/18 # Bowel Movements 0 0 <Vinnie Turner - Last Filed: 07/09/18 15:41> Results - Labs CBC & Chem 7: 07/09/18 05:05 07/09/18 05:05 Laboratory Results - last 24 hr 07/08/18 07/08/18 07/08/18 17:04 17:04 17:04 WBC 8.5 RBC 2.11 L Hgb 7.4 L Hct 20.7 L* MCV 98.3 MCH 34.9 H MCHC 35.5 RDW 23.7 H Plt Count 103 L MPV 8.0 Prelim Diff (Auto) Slide review pending Neut % (Auto) 66.2 Lymph % (Auto) 15.1 [place] % (Auto) 12.4 H Eos % (Auto) 4.4 H Baso % (Auto) 1.9 Neut # (Auto) 5.6 Lymph # (Auto) 1.3 [place] # (Auto) 1.0 H Eos # (Auto) 0.4 Baso # (Auto) 0.2 WBC Differential . Diff Scan Auto diff confirmed Differential Comment . Platelet Estimate Low L Platelet Morphology Normal Dimorphic RBCs Polychromasia Ovalocytes 1+ H Andrew Cells 1+ H Acanthocytes (Spur) 1+ H Keratocytes 1+ H PT 23.4 H INR 2.3 Sodium Potassium 3.2 L Chloride Carbon Dioxide Anion Gap BUN Creatinine Estimated GFR POC Glucose Random Glucose Calcium Magnesium Total Bilirubin Direct Bilirubin Indirect Bilirubin AST ALT Alkaline Phosphatase Total Protein Albumin 07/09/18 07/09/18 07/09/18 05:05 05:05 05:05 WBC 9.1 RBC 2.29 L Hgb 7.8 L Hct 22.4 L MCV 97.8 MCH 34.1 H MCHC 34.9 RDW 23.0 H Plt Count 110 L MPV 8.1 Prelim Diff (Auto) Slide review pending Neut % (Auto) 64.3 Lymph % (Auto) 18.4 [place] % (Auto) 10.2 H Eos % (Auto) 5.4 H Baso % (Auto) 1.7 Neut # (Auto) 5.9 Lymph # (Auto) 1.7 [place] # (Auto) 0.9 Eos # (Auto) 0.5 H Baso # (Auto) 0.2 WBC Differential Manual diff final Diff Scan Differential Comment . Platelet Estimate Low L Platelet Morphology Normal Dimorphic RBCs Present H Polychromasia 2.9 H Ovalocytes [place] Cells Acanthocytes (Spur) 1+ H Keratocytes 1+ H PT 20.6 H INR 2.0 Sodium 140 Potassium 3.5 Chloride 103 Carbon Dioxide 27.0 Anion Gap 10 BUN 11 Creatinine 1.12 Estimated GFR 70 L POC Glucose Random Glucose 108 H Calcium 7.8 L Magnesium 1.7 Total Bilirubin 16.4 H Direct Bilirubin 5.4 H Indirect Bilirubin 11.0 H AST 44 H ALT 23 Alkaline Phosphatase 122 H Total Protein 5.5 L Albumin 2.8 L 07/09/18 07/09/18 09:02 12:27 WBC RBC Hgb Hct MCV MCH MCHC RDW Plt Count MPV Prelim Diff (Auto) Neut % (Auto) Lymph % (Auto) [place] % (Auto) Eos % (Auto) Baso % (Auto) Neut # (Auto) Lymph # (Auto) [place] # (Auto) Eos # (Auto) Baso # (Auto) WBC Differential Diff Scan Differential Comment Platelet Estimate Platelet Morphology Dimorphic RBCs Polychromasia Ovalocytes Andrew Cells Acanthocytes (Spur) Keratocytes PT INR Sodium Potassium Chloride Carbon Dioxide Anion Gap BUN Creatinine Estimated GFR POC Glucose 184 H 183 H Random Glucose Calcium Magnesium Total Bilirubin Direct Bilirubin Indirect Bilirubin AST ALT Alkaline Phosphatase Total Protein Albumin Microbiology 07/07/18 12:15 Blood - Peripheral Aerobic Blood Culture - Preliminary No growth in 2 days 07/07/18 12:15 Blood - Peripheral Anaerobic Blood Culture - Preliminary No growth in 2 days 07/07/18 12:09 Blood - Peripheral Aerobic Blood Culture - Preliminary Enterobacter species 07/07/18 12:09 Blood - Peripheral Anaerobic Blood Culture - Preliminary No growth in 2 days - Imaging Impressions Paracentesis Ultrasound 07/08/18 00:00 CONCLUSION: 1. Uncomplicated paracentesis. <Lawanda Morel - Last Filed: 07/09/18 13:10> - Labs CBC & Chem 7: 07/09/18 05:05 07/09/18 05:05 Laboratory Results - last 24 hr 07/07/18 07/08/18 07/08/18 21:55 17:04 17:04 WBC RBC Hgb Hct MCV MCH MCHC RDW Plt Count MPV Prelim Diff (Auto) Neut % (Auto) Lymph % (Auto) [place] % (Auto) Eos % (Auto) Baso % (Auto) Neut # (Auto) Lymph # (Auto) [place] # (Auto) Eos # (Auto) Baso # (Auto) WBC Differential Diff Scan Differential Comment Platelet Estimate Platelet Morphology Dimorphic RBCs Polychromasia Ovalocytes [place] Cells Acanthocytes (Spur) Keratocytes PT 23.4 H INR 2.3 Sodium Potassium 3.2 L Chloride Carbon Dioxide Anion Gap BUN Creatinine Estimated GFR POC Glucose Random Glucose Calcium Magnesium Total Bilirubin Direct Bilirubin Indirect Bilirubin AST ALT Alkaline Phosphatase Total Protein Albumin Anti-Smooth Muscle Ab Negative 07/08/18 07/09/18 07/09/18 17:04 05:05 05:05 WBC 8.5 9.1 RBC 2.11 L 2.29 L Hgb 7.4 L 7.8 L Hct 20.7 L* 22.4 L MCV 98.3 97.8 MCH 34.9 H 34.1 H MCHC 35.5 34.9 RDW 23.7 H 23.0 H Plt Count 103 L 110 L MPV 8.0 8.1 Prelim Diff (Auto) Slide review pending Slide review pending Neut % (Auto) 66.2 64.3 Lymph % (Auto) 15.1 18.4 [place] % (Auto) 12.4 H 10.2 H Eos % (Auto) 4.4 H 5.4 H Baso % (Auto) 1.9 1.7 Neut # (Auto) 5.6 5.9 Lymph # (Auto) 1.3 1.7 [place] # (Auto) 1.0 H 0.9 Eos # (Auto) 0.4 0.5 H Baso # (Auto) 0.2 0.2 WBC Differential . Manual diff final Diff Scan Auto diff confirmed Differential Comment . . Platelet Estimate Low L Low L Platelet Morphology Normal Normal Dimorphic RBCs Present H Polychromasia 2.9 H Ovalocytes 1+ H Andrew Cells 1+ H Acanthocytes (Spur) 1+ H 1+ H Keratocytes 1+ H 1+ H PT 20.6 H INR 2.0 Sodium Potassium Chloride Carbon Dioxide Anion Gap BUN Creatinine Estimated GFR POC Glucose Random Glucose Calcium Magnesium Total Bilirubin Direct Bilirubin Indirect Bilirubin AST ALT Alkaline Phosphatase Total Protein Albumin Anti-Smooth Muscle Ab 07/09/18 07/09/18 07/09/18 05:05 09:02 12:27 WBC RBC Hgb Hct MCV MCH MCHC RDW Plt Count MPV Prelim Diff (Auto) Neut % (Auto) Lymph % (Auto) [place] % (Auto) Eos % (Auto) Baso % (Auto) Neut # (Auto) Lymph # (Auto) [place] # (Auto) Eos # (Auto) Baso # (Auto) WBC Differential Diff Scan Differential Comment Platelet Estimate Platelet Morphology Dimorphic RBCs Polychromasia Ovalocytes [place] Cells Acanthocytes (Spur) Keratocytes PT INR Sodium 140 Potassium 3.5 Chloride 103 Carbon Dioxide 27.0 Anion Gap 10 BUN 11 Creatinine 1.12 Estimated GFR 70 L POC Glucose 184 H 183 H Random Glucose 108 H Calcium 7.8 L Magnesium 1.7 Total Bilirubin 16.4 H Direct Bilirubin 5.4 H Indirect Bilirubin 11.0 H AST 44 H ALT 23 Alkaline Phosphatase 122 H Total Protein 5.5 L Albumin 2.8 L Anti-Smooth Muscle Ab Microbiology 07/07/18 12:15 Blood - Peripheral Aerobic Blood Culture - Preliminary No growth in 2 days 07/07/18 12:15 Blood - Peripheral Anaerobic Blood Culture - Preliminary No growth in 2 days 07/07/18 12:09 Blood - Peripheral Aerobic Blood Culture - Preliminary Enterobacter species 07/07/18 12:09 Blood - Peripheral Anaerobic Blood Culture - Preliminary No growth in 2 days <Vinnie Turner - Last Filed: 07/09/18 15:41> Assessment and Plan (1) Ascites Status: Acute Code(s): R18.8 - Other ascites (2) Alcoholic hepatitis Status: Acute Code(s): K70.10 - Alcoholic hepatitis without ascites (3) Coagulopathy Status: Acute Code(s): D68.9 - Coagulation defect, unspecified - Plan This patient is a 48-year-old male with past medical history significant for alcohol abuse, hypertension. Patient presented to the emergency room at [facility] for evaluation of abdominal distention and shortness of breath. Patient states that symptoms began 2 months ago accompanied by lower extremity edema. Increasing abdominal girth as well as edema also presented with shortness of breath. Patient states he has been jaundiced for about 2 months. States his urine has been darker over the last 2-3 months. He denies any noted bleeding, nausea or vomiting. Patient denies ever having had an EGD or colonoscopy in the past but does report occasional constipation for which he drinks fruit juice to alleviate symptoms. Patient denies any known family history of gastrointestinal disorders. He states he drinks 8-10 beers daily with a pint of rum daily as well. Upon consultation, patient reports that he has been a heavy drinker for the last 6-7 years. He denies any high risk sexual behaviors. Noted homemade tattoo right upper extremity patient states placed 25 years ago. Patient denies use of IV drugs. He does endorse use of marijuana occasionally. Our service has been consulted to evaluate patient for new onset liver failure and anemia New onset liver failure Anemia Likely alcoholic hepatitis as patient endorses drinking 8-10 beers daily in addition to 1 pint of liquor. Patient denies high risk sexual behavior, IV drug use or history of hepatitis C. 07/06/2018 CT of abdomen and pelvis-- 1. Large amount of abdominal ascites. 2. Splenomegaly. WBC 13.0 hemoglobin 5.8 hematocrit 16.9 platelet count 140 INR 1.9 total bilirubin 22.0 AST 61 ALT 34 alk phos 142 ammonia less than 10 lipase 341 AFP tumor marker 3.4 Coagulopathy likely due to alcoholic hepatitis-cirrhosis 07/09/2018 Patient awake and alert Post paracentesis 07/08/2018 therapeutic [place]acent[place] [address] cc of clear, yellow fluid was removed. Fluid was discarded. Paracentesis was therapeutic only. Hemoglobin 7.8 hematocrit 22.4 platelet count 110 INR 2.0 Total bilirubin 16.4 AST 44 ALT 23 alk phos 122 07/07/2018 AFP marker 3.4 Plan -Liquid diet -Monitor for bleeding -Monitor hemoglobin and hematocrit -PT/INR -Monitor liver function,ammonia level -Liver workup pending -Lactulose -Discussed alcohol cessation -Supportive care -Continue PPI -May consider liver biopsy -Further recommendations to follow This patient has been seen by myself and Dr. Turner and this note is written on his behalf - Attending Attestation Dr. turner <Lawanda Morel - Last Filed: 07/09/18 13:10> (1) Ascites Status: Acute Code(s): R18.8 - Other ascites (2) Alcoholic hepatitis Status: Acute Code(s): K70.10 - Alcoholic hepatitis without ascites (3) Coagulopathy Status: Acute Code(s): D68.9 - Coagulation defect, unspecified - Attending Attestation Seen after the paracentesis, plan as above. Supportive care for now. Will follow up with you. <Vinnie Turner - Last Filed: 07/09/18 15:41> <Lawanda Morel - Last Filed: 07/09/18 13:10> (1) Ascites Qualifiers: Ascites type: due to alcoholic hepatitis Qualified Code(s): K70.11 - Alcoholic hepatitis with ascites (2) Alcoholic hepatitis Qualifiers: Ascites presence: with ascites Qualified Code(s): K70.11 - Alcoholic hepatitis with ascites <Vinnie Turner - Last Filed: 07/09/18 15:41> (1) Ascites Qualifiers: Ascites type: due to alcoholic hepatitis Qualified Code(s): K70.11 - Alcoholic hepatitis with ascites (2) Alcoholic hepatitis Qualifiers: Ascites presence: with ascites Qualified Code(s): K70.11 - Alcoholic hepatitis with ascites
[2018-07-09 15:04] LABS: Smooth Muscle Total Auto Abs Negative (Negative)
[2018-07-09] MEDS ORDERED: Potassium Chloride 25 MEQ Effervescent Tablet PO ONE (16:21)
--- NOTE | 2018-07-09 16:38 | P.PNIM ---
Subjective Interval history: The patient was resting comfortably in bed. He still wanted to have his left hernia repaired. He said his breathing was much better. He says his abdomen had less fluid. He had no acute complaints. Physical Exam Vital signs: Vital Signs 07/08/18 16:40 07/08/18 16:50 07/08/18 17:00 Temperature Pulse Rate 76 73 79 Respiratory Rate 12 6 L 11 L Blood Pressure 108/54 L 92/50 L Pulse Oximetry 85 L 98 94 L 07/08/18 17:11 07/08/18 18:00 07/08/18 19:00 Temperature Pulse Rate 50 L 79 90 Respiratory Rate 45 H 25 H 34 H Blood Pressure 97/53 L Pulse Oximetry 91 L 96 95 07/08/18 20:00 07/08/18 20:24 07/08/18 21:00 Temperature Pulse Rate 86 81 101 H Respiratory Rate 22 16 17 Blood Pressure Pulse Oximetry 95 90 L 07/08/18 22:00 07/08/18 23:00 07/08/18 23:24 Temperature Pulse Rate 83 95 H 80 Respiratory Rate 12 34 H 10 L Blood Pressure 92/43 L Pulse Oximetry 95 92 L 93 L 07/09/18 00:00 07/09/18 01:00 07/09/18 01:03 Temperature Pulse Rate 82 86 87 Respiratory Rate 11 L 19 24 Blood Pressure 95/52 L 86/50 L 103/52 L Pulse Oximetry 88 L 88 L 90 L 07/09/18 02:00 07/09/18 03:00 07/09/18 04:00 Temperature Pulse Rate 87 93 H 84 Respiratory Rate 26 H 35 H 9 L Blood Pressure 89/50 L 94/42 L 102/54 L Pulse Oximetry 88 L 94 L 89 L 07/09/18 05:00 07/09/18 06:00 07/09/18 07:00 Temperature Pulse Rate 88 82 89 Respiratory Rate 17 8 L 13 Blood Pressure 126/64 123/69 96/50 L Pulse Oximetry 90 L 91 L 89 L 07/09/18 08:00 07/09/18 08:42 07/09/18 08:57 Temperature 98.7 F Pulse Rate 87 92 H Respiratory Rate 16 21 Blood Pressure 86/58 L Pulse Oximetry 83 L 92 L 07/09/18 09:00 07/09/18 10:00 07/09/18 11:00 Temperature Pulse Rate 100 H 89 94 H Respiratory Rate 22 16 9 L Blood Pressure 91/47 L 96/66 L 100/55 L Pulse Oximetry 94 L 88 L 93 L 07/09/18 11:17 07/09/18 14:05 Temperature Pulse Rate 89 Respiratory Rate 17 Blood Pressure Pulse Oximetry 95 Intake & Output 07/08/18 07/09/18 07/09/18 18:59 06:59 18:59 Intake Total 1544 / 1544 1295 / 1295 100 / 100 Output Total 800 / 800 Balance 1544 / 1544 495 / 495 100 / 100 Weight 84.1 kg Intake: IV 350 / 350 815 / 815 100 / 100 Zosyn 4.5 GM Premix 4.5 gm In 100 / 100 300 / 300 100 / 100 100 ml @ 200 mls/hr IV.SIG Q6H [facility] Rx#:[id number] Vancomycin Inj 1,500 MG In NS 515 / 515 Inj 500 ML @ 257.5 mls/hr IV. SIG Q18H [facility] Rx#:[id number] Oral 720 / 720 480 / 480 Other 250 / 250 Plasma Thawed 5 Day Acda Unit 250 / 250 [id number] Intake (Blood Product) Amt 224 / 224 Plasma Thawed 5 Day Acda Unit 224 / 224 [id number] Output: Urine 800 / 800 Other: # Voids 4 Date of Last Bowel Movement 07/07/18 07/07/18 # Bowel Movements 0 0 Narrative: Gen.: No acute distress. Positive jaundice. Head: Normocephalic. Atraumatic. EENT: Pupils equal round and reactive to light. Nose without drainage. Airway intact. Throat without injection. Positive scleral icterus. Cardiovascular: Regular rate and rhythm. No murmurs, rubs or gallops. Respiratory: Scattered rhonchi. Abdomen: Soft, markedly distended, nontender to palpation. No peritoneal signs. : Left inguinal hernia appreciated. Musculoskeletal: No gross deformities. + LE edema. Skin: No obvious rashes or erythema. Neuro: Sensory and motor grossly intact. Cranial nerves II through XII grossly intact. Results - Labs CBC & Chem 7: 07/09/18 05:05 07/09/18 05:05 Laboratory Results - last 24 hr 07/07/18 07/08/18 07/08/18 21:55 17:04 17:04 WBC RBC Hgb Hct MCV MCH MCHC RDW Plt Count MPV Prelim Diff (Auto) Neut % (Auto) Lymph % (Auto) [place] % (Auto) Eos % (Auto) Baso % (Auto) Neut # (Auto) Lymph # (Auto) [place] # (Auto) Eos # (Auto) Baso # (Auto) WBC Differential Diff Scan Differential Comment Platelet Estimate Platelet Morphology Dimorphic RBCs Polychromasia Ovalocytes Andrew Cells Acanthocytes (Spur) Keratocytes PT 23.4 H INR 2.3 Sodium Potassium 3.2 L Chloride Carbon Dioxide Anion Gap BUN Creatinine Estimated GFR POC Glucose Random Glucose Calcium Magnesium Total Bilirubin Direct Bilirubin Indirect Bilirubin AST ALT Alkaline Phosphatase Total Protein Albumin Anti-Smooth Muscle Ab Negative 07/08/18 07/09/18 07/09/18 17:04 05:05 05:05 WBC 8.5 9.1 RBC 2.11 L 2.29 L Hgb 7.4 L 7.8 L Hct 20.7 L* 22.4 L MCV 98.3 97.8 MCH 34.9 H 34.1 H MCHC 35.5 34.9 RDW 23.7 H 23.0 H Plt Count 103 L 110 L MPV 8.0 8.1 Prelim Diff (Auto) Slide review pending Slide review pending Neut % (Auto) 66.2 64.3 Lymph % (Auto) 15.1 18.4 [place] % (Auto) 12.4 H 10.2 H Eos % (Auto) 4.4 H 5.4 H Baso % (Auto) 1.9 1.7 Neut # (Auto) 5.6 5.9 Lymph # (Auto) 1.3 1.7 [place] # (Auto) 1.0 H 0.9 Eos # (Auto) 0.4 0.5 H Baso # (Auto) 0.2 0.2 WBC Differential . Manual diff final Diff Scan Auto diff confirmed Differential Comment . . Platelet Estimate Low L Low L Platelet Morphology Normal Normal Dimorphic RBCs Present H Polychromasia 2.9 H Ovalocytes 1+ H Andrew Cells 1+ H Acanthocytes (Spur) 1+ H 1+ H Keratocytes 1+ H 1+ H PT 20.6 H INR 2.0 Sodium Potassium Chloride Carbon Dioxide Anion Gap BUN Creatinine Estimated GFR POC Glucose Random Glucose Calcium Magnesium Total Bilirubin Direct Bilirubin Indirect Bilirubin AST ALT Alkaline Phosphatase Total Protein Albumin Anti-Smooth Muscle Ab 07/09/18 07/09/18 07/09/18 05:05 09:02 12:27 WBC RBC Hgb Hct MCV MCH MCHC RDW Plt Count MPV Prelim Diff (Auto) Neut % (Auto) Lymph % (Auto) [place] % (Auto) Eos % (Auto) Baso % (Auto) Neut # (Auto) Lymph # (Auto) [place] # (Auto) Eos # (Auto) Baso # (Auto) WBC Differential Diff Scan Differential Comment Platelet Estimate Platelet Morphology Dimorphic RBCs Polychromasia Ovalocytes Andrew Cells Acanthocytes (Spur) Keratocytes PT INR Sodium 140 Potassium 3.5 Chloride 103 Carbon Dioxide 27.0 Anion Gap 10 BUN 11 Creatinine 1.12 Estimated GFR 70 L POC Glucose 184 H 183 H Random Glucose 108 H Calcium 7.8 L Magnesium 1.7 Total Bilirubin 16.4 H Direct Bilirubin 5.4 H Indirect Bilirubin 11.0 H AST 44 H ALT 23 Alkaline Phosphatase 122 H Total Protein 5.5 L Albumin 2.8 L Anti-Smooth Muscle Ab Microbiology 07/07/18 12:15 Blood - Peripheral Aerobic Blood Culture - Preliminary No growth in 2 days 07/07/18 12:15 Blood - Peripheral Anaerobic Blood Culture - Preliminary No growth in 2 days 07/07/18 12:09 Blood - Peripheral Aerobic Blood Culture - Preliminary Enterobacter species 07/07/18 12:09 Blood - Peripheral Anaerobic Blood Culture - Preliminary No growth in 2 days Assessment and Plan - Plan Ascites/jaundice Likely secondary to liver failure from alcohol abuse. Hepatitis profile negative. CT of the abdomen/pelvis with ascites. AFP 3.4. GI consult appreciated. Status post paracentesis 07/08/2018. -GI following. -s/p IV albumin. -follow LFTs. -Advance diet as tolerated. Severe anemia The pt states he has blood in his urine, but that is likely s/t elevated bilirubin levels. UA negative for blood. Improved after two units of red cells. Hemoccult negative. -follow CBC and transfuse as needed. Stable at this time. Alcohol abuse Reports drinking 8-10 beers daily with 1 pint of hard liquor. He says he has not had a drink in 2 months. -CIWA protocol. -cessation instruction. Acute respiratory failure CXR with bilateral infiltrates and effusions. -oxygen and nebs as needed. -BiPAP as needed. Currently on nasal cannula. -continue antibiotics. -Lasix 40 mg IV BID. Anticipate switch to p.o. in the morning. Acute renal failure Improved. -follow BMP and avoid nephrotoxins. -albumin. Hypokalemia Likely s/t decreased PO intake. Exacerbated by Lasix. -replete and monitor. Bacteremia GNR in one blood culture bottle. Concern for SBP. -continue antibiotics. -ID consult appreciated. Continue Zosyn. PPx: SCDs Discharge Planning: Transfer to floor
[2018-07-09] MEDS ORDERED: Pharmacy Ordered Lab Info OTHER ONE (22:45)
[2018-07-09 23:52] LABS: DS DNA Ab (Crithidia) NEGATIVE (NEGATIVE)
[2018-07-10] MEDS: Morphine Inj 4 MG/ML Vial IV.PUSH PRN ×4 (04:29→23:37)
[2018-07-10] MEDS: Piperacil/Tazo 4.5 GM Premix 4.5 GM/100 ML BAG IV.SIG SCH ×4 (04:36→23:01)
[2018-07-10 07:28] LABS: INR 2.3 Ratio; Prothrombin Time 23.2 sec (9.8-11.6)
[2018-07-10 07:36] LABS: Baso # (Auto) 0.1 th/mm3 (0.0-0.2); Baso % (Auto) 1.1 % (0.0-2.0); Eos # (Auto) 0.3 th/mm3 (0.0-0.4); Eos % (Auto) 3.7 % (0.0-4.0); Lymph # (Auto) 1.3 th/mm3 (1.0-4.8); Lymph % (Auto) 15.8 % (9.0-44.0); Mean Corpuscular HGB Conc 34.2 % (32.0-36.0); Mean Corpuscular Hemoglobin 34.4 pg (27.0-34.0); Mean Corpuscular Volume 100.5 fL (80.0-100.0); Mean Platelet Volume 8.4 fL (7.0-11.0); Mono # (Auto) 0.9 th/mm3 (0.0-0.9); Mono % (Auto) 10.6 % (0.0-8.0); Neut # (Auto) 5.7 th/mm3 (1.8-7.7); Neut % (Auto) 68.8 % (16.0-70.0); Platelet Count 102 th/mm3 (150-450); Red Blood Count 2.08 mil/mm3 (4.50-5.90); Red Cell Distribution Width 23.1 % (11.6-17.2); White Blood Count 8.3 th/mm3 (4.0-11.0)
[2018-07-10 07:53] LABS: Calcium 7.4 mg/dL (8.5-10.1); Carbon Dioxide 30.9 meq/L (21.0-32.0); Potassium 3.8 meq/L (3.5-5.1); Total Protein 5.2 g/dL (6.4-8.2)
[2018-07-10 08:20] LABS: Albumin 2.6 g/dL (3.4-5.0); Calcium-Albumin Corrected 8.5 mg/dL (8.5-10.1)
[2018-07-10] MEDS: Multivitamin/Minerals Therapeutic Tablet PO SCH (08:38)
[2018-07-10] MEDS: Folic Acid 1 MG Tablet PO SCH (08:38)
[2018-07-10 08:43] LABS: Hematocrit 20.9 % (39.0-51.0); Hemoglobin 7.1 gm/dL (13.0-17.0)
[2018-07-10 08:44] LABS: Acanthocytes 2+; Burr Cells 1+; Platelet Morphology Normal (Normal)
[2018-07-10] MEDS: Pantoprazole Inj 40 MG Vial IV.PUSH SCH ×2 (09:58→23:01)
--- NOTE | 2018-07-10 11:59 | P.PNGI ---
Subjective Interval history: Patient sitting up in bedside Denies any noted bleeding Decreasing ascites States soft BM this a.m. x1 <MorelLawanda - Last Filed: 07/10/18 11:56> Physical Exam Vital signs: Vital Signs 07/09/18 12:00 07/09/18 13:00 07/09/18 14:00 Temperature 98.6 F Pulse Rate 94 H 85 97 H Respiratory Rate 17 13 21 Blood Pressure 98/53 L 100/45 L 100/59 L Pulse Oximetry 95 92 L 07/09/18 14:05 07/09/18 15:00 07/09/18 16:00 Temperature 98.1 F Pulse Rate 89 87 82 Respiratory Rate 17 10 L 7 L Blood Pressure 107/58 L 102/57 L Pulse Oximetry 07/09/18 17:00 07/09/18 19:32 07/09/18 20:00 Temperature 97.5 F L Pulse Rate 108 H 88 87 Respiratory Rate 28 H 16 18 Blood Pressure 107/51 L 122/61 Pulse Oximetry 93 L 93 L 07/09/18 23:58 07/10/18 00:00 07/10/18 04:00 Temperature 97.6 F 98.2 F Pulse Rate 96 H 51 L 104 H Respiratory Rate 18 18 Blood Pressure 106/57 L 96/54 L Pulse Oximetry 95 95 07/10/18 08:00 07/10/18 08:31 Temperature 98.3 F Pulse Rate 103 H Respiratory Rate 22 Blood Pressure 107/58 L Pulse Oximetry 93 L 92 L Intake & Output 07/09/18 07/10/18 07/10/18 18:59 06:59 18:59 Intake Total 100 / 100 1020 / 1020 100 / 100 Output Total 400 / 400 Balance 100 / 100 620 / 620 100 / 100 Weight 81.4 kg Intake: IV 100 / 100 300 / 300 100 / 100 Zosyn 4.5 GM Premix 4.5 gm In 100 / 100 300 / 300 100 / 100 100 ml @ 200 mls/hr IV.SIG Q6H NE[facility] Rx#:[id number] Oral 720 / 720 Output: Urine 400 / 400 Other: Date of Last Bowel Movement 07/07/18 # Bowel Movements 0 - Constitutional no acute distress, chronically ill appearing - Routine HEENT Exam Head: Present: normocephalic - Routine Respiratory Exam Present: CTA bilaterally - Routine Abdominal Exam Present: soft, normoactive bowel sounds, distended. Absent: tenderness, guarding, firm - Routine Extremities Exam Present: edema - Routine Skin Exam Present: dry, warm, jaundice - Routine Psychiatric Exam Present: normal affect, cooperative <MorelLawanda - Last Filed: 07/10/18 11:56> Vital signs: Vital Signs 07/09/18 14:00 07/09/18 14:05 07/09/18 15:00 Temperature Pulse Rate 97 H 89 87 Respiratory Rate 21 17 10 L Blood Pressure 100/59 L 107/58 L Pulse Oximetry 07/09/18 16:00 07/09/18 17:00 07/09/18 19:32 Temperature 98.1 F Pulse Rate 82 108 H 88 Respiratory Rate 7 L 28 H 16 Blood Pressure 102/57 L 107/51 L Pulse Oximetry 93 L 07/09/18 20:00 07/09/18 23:58 07/10/18 00:00 Temperature 97.5 F L 97.6 F Pulse Rate 87 96 H 51 L Respiratory Rate 18 18 Blood Pressure 122/61 106/57 L Pulse Oximetry 93 L 95 07/10/18 04:00 07/10/18 08:00 07/10/18 08:31 Temperature 98.2 F 98.3 F Pulse Rate 104 H 97 H Respiratory Rate 18 22 Blood Pressure 96/54 L 107/58 L Pulse Oximetry 95 93 L 92 L Intake & Output 07/09/18 07/10/18 07/10/18 18:59 06:59 18:59 Intake Total 100 / 100 1020 / 1020 100 / 100 Output Total 400 / 400 Balance 100 / 100 620 / 620 100 / 100 Weight 81.4 kg Intake: IV 100 / 100 300 / 300 100 / 100 Zosyn 4.5 GM Premix 4.5 gm In 100 / 100 300 / 300 100 / 100 100 ml @ 200 mls/hr IV.SIG Q6H [facility] Rx#:[id number] Oral 720 / 720 Output: Urine 400 / 400 Other: Date of Last Bowel Movement 07/07/18 07/07/18 # Bowel Movements 0 <Vinnie Turner - Last Filed: 07/10/18 13:13> Results - Labs CBC & Chem 7: 07/10/18 06:12 07/10/18 06:12 Laboratory Results - last 24 hr 11/27/18 11/27/18 11/29/18 19:30 21:55 12:27 WBC RBC Hgb Hct MCV MCH MCHC RDW Plt Count MPV Prelim Diff (Auto) Neut % (Auto) Lymph % (Auto) [place] % (Auto) Eos % (Auto) Baso % (Auto) Neut # (Auto) Lymph # (Auto) [place] # (Auto) Eos # (Auto) Baso # (Auto) WBC Differential Diff Scan Differential Comment Platelet Estimate Platelet Morphology Andrew Cells Acanthocytes (Spur) Keratocytes PT INR Sodium Potassium Chloride Carbon Dioxide Anion Gap BUN Creatinine Estimated GFR POC Glucose 183 H Random Glucose Lactic Acid Calcium Calcium Adj for Albumin Total Bilirubin Direct Bilirubin Indirect Bilirubin AST ALT Alkaline Phosphatase Total Protein Albumin Stool [id number] 46 Vancomycin Trough Rheumatoid Factor Less than 14 Anti-ds DNA Titer (Crith) ND Anti-ds DNA (Crithidia) Negative Anti-Smooth Muscle Ab Negative 07/10/18 07/10/18 07/10/18 01:17 06:12 06:12 WBC 8.3 RBC 2.08 L Hgb 7.1 L Hct 20.9 L* MCV 100.5 H MCH 34.4 H MCHC 34.2 RDW 23.1 H Plt Count 102 L MPV 8.4 Prelim Diff (Auto) Slide review pending Neut % (Auto) 68.8 Lymph % (Auto) 15.8 [place] % (Auto) 10.6 H Eos % (Auto) 3.7 Baso % (Auto) 1.1 Neut # (Auto) 5.7 Lymph # (Auto) 1.3 Dixon # (Auto) 0.9 Eos # (Auto) 0.3 Baso # (Auto) 0.1 WBC Differential . Diff Scan Auto diff confirmed Differential Comment . Platelet Estimate Low L Platelet Morphology Normal [place] Cells 1+ H Acanthocytes (Spur) 2+ H Keratocytes Occ H PT 23.2 H INR 2.3 Sodium Potassium Chloride Carbon Dioxide Anion Gap BUN Creatinine Estimated GFR POC Glucose Random Glucose Lactic Acid Calcium Calcium Adj for Albumin Total Bilirubin Direct Bilirubin Indirect Bilirubin AST ALT Alkaline Phosphatase Total Protein Albumin Stool [id number] Vancomycin Trough 5.4 Rheumatoid Factor Anti-ds DNA Titer (Crith) Anti-ds DNA (Crithidia) Anti-Smooth Muscle Ab 07/10/18 07/10/18 06:12 09:17 WBC RBC Hgb Hct MCV MCH MCHC RDW Plt Count MPV Prelim Diff (Auto) Neut % (Auto) Lymph % (Auto) [place] % (Auto) Eos % (Auto) Baso % (Auto) Neut # (Auto) Lymph # (Auto) [place] # (Auto) Eos # (Auto) Baso # (Auto) WBC Differential Diff Scan Differential Comment Platelet Estimate Platelet Morphology [place] Cells Acanthocytes (Spur) Keratocytes PT INR Sodium 136 Potassium 3.8 Chloride 99 Carbon Dioxide 30.9 Anion Gap 6 BUN 11 Creatinine 0.99 Estimated GFR 81 L POC Glucose Random Glucose 84 Lactic Acid 3.1 H Calcium 7.4 L* Calcium Adj for Albumin 8.5 Total Bilirubin 14.8 H Direct Bilirubin 4.6 H Indirect Bilirubin 10.2 H AST 55 H ALT 28 Alkaline Phosphatase 123 H Total Protein 5.2 L Albumin 2.6 L Stool [id number]-[id number] Vancomycin Trough Rheumatoid Factor Anti-ds DNA Titer (Crith) Anti-ds DNA (Crithidia) Anti-Smooth Muscle Ab Microbiology 07/07/18 12:15 Blood - Peripheral Aerobic Blood Culture - Preliminary No growth in 3 days 07/07/18 12:15 Blood - Peripheral Anaerobic Blood Culture - Preliminary No growth in 3 days 07/07/18 12:09 Blood - Peripheral Aerobic Blood Culture - Final Klebsiella pneumoniae 07/07/18 12:09 Blood - Peripheral Anaerobic Blood Culture - Preliminary No growth in 3 days <Lawanda Morel - Last Filed: 07/10/18 11:56> - Labs CBC & Chem 7: 07/10/18 06:12 07/10/18 06:12 Laboratory Results - last 24 hr 07/07/18 07/07/18 07/10/18 19:30 21:55 01:17 WBC RBC Hgb Hct MCV MCH MCHC RDW Plt Count MPV Prelim Diff (Auto) Neut % (Auto) Lymph % (Auto) [place] % (Auto) Eos % (Auto) Baso % (Auto) Neut # (Auto) Lymph # (Auto) [place] # (Auto) Eos # (Auto) Baso # (Auto) WBC Differential Diff Scan Differential Comment Platelet Estimate Platelet Morphology [place] Cells Acanthocytes (Spur) Keratocytes PT INR Sodium Potassium Chloride Carbon Dioxide Anion Gap BUN Creatinine Estimated GFR Random Glucose Lactic Acid Calcium Calcium Adj for Albumin Total Bilirubin Direct Bilirubin Indirect Bilirubin AST ALT Alkaline Phosphatase Total Protein Albumin Stool m-5-Gpjwvuxmkxm 46 Vancomycin Trough 5.4 Rheumatoid Factor Less than 14 Anti-ds DNA Titer (Crith) ND Anti-ds DNA (Crithidia) Negative Anti-Smooth Muscle Ab Negative 07/10/18 07/10/18 07/10/18 06:12 06:12 06:12 WBC 8.3 RBC 2.08 L Hgb 7.1 L Hct 20.9 L* MCV 100.5 H MCH 34.4 H MCHC 34.2 RDW 23.1 H Plt Count 102 L MPV 8.4 Prelim Diff (Auto) Slide review pending Neut % (Auto) 68.8 Lymph % (Auto) 15.8 [place] % (Auto) 10.6 H Eos % (Auto) 3.7 Baso % (Auto) 1.1 Neut # (Auto) 5.7 Lymph # (Auto) 1.3 [place] # (Auto) 0.9 Eos # (Auto) 0.3 Baso # (Auto) 0.1 WBC Differential . Diff Scan Auto diff confirmed Differential Comment . Platelet Estimate Low L Platelet Morphology Normal Andrew Cells 1+ H Acanthocytes (Spur) 2+ H Keratocytes Occ H PT 23.2 H INR 2.3 Sodium 136 Potassium 3.8 Chloride 99 Carbon Dioxide 30.9 Anion Gap 6 BUN 11 Creatinine 0.99 Estimated GFR 81 L Random Glucose 84 Lactic Acid Calcium 7.4 L* Calcium Adj for Albumin 8.5 Total Bilirubin 14.8 H Direct Bilirubin 4.6 H Indirect Bilirubin 10.2 H AST 55 H ALT 28 Alkaline Phosphatase 123 H Total Protein 5.2 L Albumin 2.6 L Stool z-8-Zojddovnhcd Vancomycin Trough Rheumatoid Factor Anti-ds DNA Titer (Crith) Anti-ds DNA (Crithidia) Anti-Smooth Muscle Ab 07/10/18 09:17 WBC RBC Hgb Hct MCV MCH MCHC RDW Plt Count MPV Prelim Diff (Auto) Neut % (Auto) Lymph % (Auto) [place] % (Auto) Eos % (Auto) Baso % (Auto) Neut # (Auto) Lymph # (Auto) [place] # (Auto) Eos # (Auto) Baso # (Auto) WBC Differential Diff Scan Differential Comment Platelet Estimate Platelet Morphology [place] Cells Acanthocytes (Spur) Keratocytes PT INR Sodium Potassium Chloride Carbon Dioxide Anion Gap BUN Creatinine Estimated GFR Random Glucose Lactic Acid 3.1 H Calcium Calcium Adj for Albumin Total Bilirubin Direct Bilirubin Indirect Bilirubin AST ALT Alkaline Phosphatase Total Protein Albumin Stool x-8-Lhmkaomikom Vancomycin Trough Rheumatoid Factor Anti-ds DNA Titer (Crith) Anti-ds DNA (Crithidia) Anti-Smooth Muscle Ab Microbiology 07/07/18 12:15 Blood - Peripheral Aerobic Blood Culture - Preliminary No growth in 3 days 07/07/18 12:15 Blood - Peripheral Anaerobic Blood Culture - Preliminary No growth in 3 days 07/07/18 12:09 Blood - Peripheral Aerobic Blood Culture - Final Klebsiella pneumoniae 07/07/18 12:09 Blood - Peripheral Anaerobic Blood Culture - Preliminary No growth in 3 days <Vinnie Turner - Last Filed: 07/10/18 13:13> Assessment and Plan (1) Ascites Status: Acute Code(s): R18.8 - Other ascites (2) Alcoholic hepatitis Status: Acute Code(s): K70.10 - Alcoholic hepatitis without ascites (3) Coagulopathy Status: Acute Code(s): D68.9 - Coagulation defect, unspecified - Plan This patient is a 48-year-old male with past medical history significant for alcohol abuse, hypertension. Patient presented to the emergency room at [facility] for evaluation of abdominal distention and shortness of breath. Patient states that symptoms began 2 months ago accompanied by lower extremity edema. Increasing abdominal girth as well as edema also presented with shortness of breath. Patient states he has been jaundiced for about 2 months. States his urine has been darker over the last 2-3 months. He denies any noted bleeding, nausea or vomiting. Patient denies ever having had an EGD or colonoscopy in the past but does report occasional constipation for which he drinks fruit juice to alleviate symptoms. Patient denies any known family history of gastrointestinal disorders. He states he drinks 8-10 beers daily with a pint of rum daily as well. Upon consultation, patient reports that he has been a heavy drinker for the last 6-7 years. He denies any high risk sexual behaviors. Noted homemade tattoo right upper extremity patient states placed 25 years ago. Patient denies use of IV drugs. He does endorse use of marijuana occasionally. Our service has been consulted to evaluate patient for new onset liver failure and anemia New onset liver failure Anemia Likely alcoholic hepatitis as patient endorses drinking 8-10 beers daily in addition to 1 pint of liquor. Patient denies high risk sexual behavior, IV drug use or history of hepatitis C. 07/06/2018 CT of abdomen and pelvis-- 1. Large amount of abdominal ascites. 2. Splenomegaly. WBC 13.0 hemoglobin 5.8 hematocrit 16.9 platelet count 140 INR 1.9 total bilirubin 22.0 AST 61 ALT 34 alk phos 142 ammonia less than 10 lipase 341 AFP tumor marker 3.4 Coagulopathy likely due to alcoholic hepatitis-cirrhosis 07/09/2018 Patient awake and alert Post paracentesis 07/08/2018 therapeutic [place]acentesis [place] [address] cc of clear, yellow fluid was removed. Fluid was discarded. Paracentesis was therapeutic only. Hemoglobin 7.8 hematocrit 22.4 platelet count 110 INR 2.0 Total bilirubin 16.4 AST 44 ALT 23 alk phos 122 07/07/2018 AFP marker 3.4 07/10/2018 Patient awake and alert Denies abdominal pain States tolerating diet well Denies any noted bleeding Hemoglobin 7.1 hematocrit 20.9 platelet count 102 INR 2.3 Total bilirubin 14.8 AST 55 ALT 28 alk phos 123 serum immunology pending Plan -Cardiac diet -Monitor for bleeding -Monitor hemoglobin and hematocrit -PT/INR -Monitor liver function,ammonia level -Liver workup pending -Lactulose -Discussed alcohol cessation -Supportive care -Continue PPI -May consider liver biopsy -Further recommendations to follow This patient has been seen by myself and Dr. Turner and this note is written on his behalf - Attending Attestation Dr. turner <Lawanda Morel - Last Filed: 07/10/18 11:56> (1) Ascites Status: Acute Code(s): R18.8 - Other ascites (2) Alcoholic hepatitis Status: Acute Code(s): K70.10 - Alcoholic hepatitis without ascites (3) Coagulopathy Status: Acute Code(s): D68.9 - Coagulation defect, unspecified - Attending Attestation Seen and examined, plan as above. Might need another paracentesis within few days. No enough criteria for Steroids or Pentoxifylline for now. Work up for other causes for liver disease pending, no plans for liver biopsy. Abstinence from ETOH for 6 months and then evaluation for liver transplant. <Vinnie Turner - Last Filed: 07/10/18 13:13> <Lawanda Morel - Last Filed: 07/10/18 11:56> (1) Ascites Qualifiers: Ascites type: due to alcoholic hepatitis Qualified Code(s): K70.11 - Alcoholic hepatitis with ascites (2) Alcoholic hepatitis Qualifiers: Ascites presence: with ascites Qualified Code(s): K70.11 - Alcoholic hepatitis with ascites <Vinnie Turner - Last Filed: 07/10/18 13:13> (1) Ascites Qualifiers: Ascites type: due to alcoholic hepatitis Qualified Code(s): K70.11 - Alcoholic hepatitis with ascites (2) Alcoholic hepatitis Qualifiers: Ascites presence: with ascites Qualified Code(s): K70.11 - Alcoholic hepatitis with ascites
[2018-07-10] MEDS ORDERED: Sod Chloride 0.9% Inj 1,000 ML IV.CONT SCH (14:25)
[2018-07-10 14:55] LABS: Lactate Dehydrogenase 364 U/L (87-241)
--- NOTE | 2018-07-10 16:08 | P.PNIM ---
Subjective Interval history: The patient was sitting up in a chair and eating his lunch. He said he still felt some discomfort in his abdomen and he still had some swelling there. He still said that he wanted his hernia in his groin removed before he leaves the hospital. He had no other acute complaints. Discussed with nursing. Physical Exam Vital signs: Vital Signs 07/09/18 17:00 07/09/18 19:32 07/09/18 20:00 Temperature 97.5 F L Pulse Rate 108 H 88 87 Respiratory Rate 28 H 16 18 Blood Pressure 107/51 L 122/61 Pulse Oximetry 93 L 93 L 07/09/18 23:58 07/10/18 00:00 07/10/18 04:00 Temperature 97.6 F 98.2 F Pulse Rate 96 H 51 L 104 H Respiratory Rate 18 18 Blood Pressure 106/57 L 96/54 L Pulse Oximetry 95 95 07/10/18 08:00 07/10/18 08:31 Temperature 98.3 F Pulse Rate 97 H Respiratory Rate 22 Blood Pressure 107/58 L Pulse Oximetry 93 L 92 L Intake & Output 07/09/18 07/10/18 07/10/18 18:59 06:59 18:59 Intake Total 100 / 100 1020 / 1020 100 / 100 Output Total 400 / 400 Balance 100 / 100 620 / 620 100 / 100 Weight 81.4 kg Intake: IV 100 / 100 300 / 300 100 / 100 Zosyn 4.5 GM Premix 4.5 gm In 100 / 100 300 / 300 100 / 100 100 ml @ 200 mls/hr IV.SIG Q[facility]H [facility] Rx#:[id number] Oral 720 / 720 Output: Urine 400 / 400 Other: Date of Last Bowel Movement 07/07/18 07/07/18 # Bowel Movements 0 Narrative: Gen.: No acute distress. Positive jaundice. Head: Normocephalic. Atraumatic. EENT: Pupils equal round and reactive to light. Nose without drainage. Airway intact. Throat without injection. Positive scleral icterus. Cardiovascular: Regular rate and rhythm. No murmurs, rubs or gallops. Respiratory: Scattered rhonchi. Abdomen: Soft, markedly distended, nontender to palpation. No peritoneal signs. : Left inguinal hernia appreciated. Musculoskeletal: No gross deformities. + LE edema. Skin: No obvious rashes or erythema. Neuro: Sensory and motor grossly intact. Cranial nerves II through XII grossly intact. Results - Labs CBC & Chem 7: 07/10/18 06:12 07/10/18 06:12 Laboratory Results - last 24 hr 07/07/18 07/07/18 07/10/18 19:30 21:55 01:17 WBC RBC Hgb Hct MCV MCH MCHC RDW Plt Count MPV Prelim Diff (Auto) Neut % (Auto) Lymph % (Auto) [place] % (Auto) Eos % (Auto) Baso % (Auto) Neut # (Auto) Lymph # (Auto) [place] # (Auto) Eos # (Auto) Baso # (Auto) WBC Differential Diff Scan Differential Comment Platelet Estimate Platelet Morphology Andrew Cells Acanthocytes (Spur) Keratocytes Haptoglobin PT INR Sodium Potassium Chloride Carbon Dioxide Anion Gap BUN Creatinine Estimated GFR Random Glucose Lactic Acid Calcium Calcium Adj for Albumin Total Bilirubin Direct Bilirubin Indirect Bilirubin AST ALT Alkaline Phosphatase Lactate Dehydrogenase Total Protein Albumin Stool [id number] 46 Vancomycin Trough 5.4 Rheumatoid Factor Less than 14 Anti-ds DNA Titer (Crith) ND Anti-ds DNA (Crithidia) Negative Blood Type Antibody Screen MTS Gel Crossmatch 07/10/18 07/10/18 07/10/18 06:12 06:12 06:12 WBC 8.3 RBC 2.08 L Hgb 7.1 L Hct 20.9 L* MCV 100.5 H MCH 34.4 H MCHC 34.2 RDW 23.1 H Plt Count 102 L MPV 8.4 Prelim Diff (Auto) Slide review pending Neut % (Auto) 68.8 Lymph % (Auto) 15.8 [place] % (Auto) 10.6 H Eos % (Auto) 3.7 Baso % (Auto) 1.1 Neut # (Auto) 5.7 Lymph # (Auto) 1.3 [place] # (Auto) 0.9 Eos # (Auto) 0.3 Baso # (Auto) 0.1 WBC Differential . Diff Scan Auto diff confirmed Differential Comment . Platelet Estimate Low L Platelet Morphology Normal Franklin Cells 1+ H Acanthocytes (Spur) 2+ H Keratocytes Occ H Haptoglobin PT 23.2 H INR 2.3 Sodium 136 Potassium 3.8 Chloride 99 Carbon Dioxide 30.9 Anion Gap 6 BUN 11 Creatinine 0.99 Estimated GFR 81 L Random Glucose 84 Lactic Acid Calcium 7.4 L* Calcium Adj for Albumin 8.5 Total Bilirubin 14.8 H Direct Bilirubin 4.6 H Indirect Bilirubin 10.2 H AST 55 H ALT 28 Alkaline Phosphatase 123 H Lactate Dehydrogenase Total Protein 5.2 L Albumin 2.6 L Stool [id number] Vancomycin Trough Rheumatoid Factor Anti-ds DNA Titer (Crith) Anti-ds DNA (Crithidia) Blood Type Antibody Screen MTS Gel Crossmatch 07/10/18 07/10/18 07/10/18 09:17 13:48 13:48 WBC RBC Hgb Hct MCV MCH MCHC RDW Plt Count MPV Prelim Diff (Auto) Neut % (Auto) Lymph % (Auto) [place] % (Auto) Eos % (Auto) Baso % (Auto) Neut # (Auto) Lymph # (Auto) [place] # (Auto) Eos # (Auto) Baso # (Auto) WBC Differential Diff Scan Differential Comment Platelet Estimate Platelet Morphology Franklin Cells Acanthocytes (Spur) Keratocytes Haptoglobin Less than 10 L PT INR Sodium Potassium Chloride Carbon Dioxide Anion Gap BUN Creatinine Estimated GFR Random Glucose Lactic Acid 3.1 H Calcium Calcium Adj for Albumin Total Bilirubin Direct Bilirubin Indirect Bilirubin AST ALT Alkaline Phosphatase Lactate Dehydrogenase 364 H Total Protein Albumin Stool [id number] Vancomycin Trough Rheumatoid Factor Anti-ds DNA Titer (Crith) Anti-ds DNA (Crithidia) Blood Type A Negative Antibody Screen Negative MTS Gel Crossmatch See Detail Microbiology 07/07/18 12:15 Blood - Peripheral Aerobic Blood Culture - Preliminary No growth in 3 days 07/07/18 12:15 Blood - Peripheral Anaerobic Blood Culture - Preliminary No growth in 3 days 07/07/18 12:09 Blood - Peripheral Aerobic Blood Culture - Final Klebsiella pneumoniae 07/07/18 12:09 Blood - Peripheral Anaerobic Blood Culture - Preliminary No growth in 3 days Assessment and Plan - Plan Ascites/jaundice Likely secondary to liver failure from alcohol abuse. Hepatitis profile negative. CT of the abdomen/pelvis with ascites. AFP 3.4. GI consult appreciated. Status post paracentesis 07/08/2018. -GI following. -s/p IV albumin. -follow LFTs. -Advance diet as tolerated. Severe anemia The pt states he has blood in his urine, but that is likely s/t elevated bilirubin levels. UA negative for blood. Improved after two units of red cells. Hemoccult negative. LDH, indirect bilirubin elevated, haptoglobin decreased. -follow CBC and transfuse as needed. Will transfuse two additional units 07/10. -hematology consult requested. Alcohol abuse Reports drinking 8-10 beers daily with 1 pint of hard liquor. He says he has not had a drink in 2 months. -CIDE protocol. -cessation instruction. Acute respiratory failure CXR with bilateral infiltrates and effusions. -oxygen and nebs as needed. -BiPAP as needed. Currently on nasal cannula. -continue antibiotics. -Lasix 40 mg IV BID switched to 40 mg PO daily. Acute renal failure Improved. -follow BMP and avoid nephrotoxins. -albumin. Hypokalemia Likely s/t decreased PO intake. Exacerbated by Lasix. -replete and monitor. Bacteremia Klebsiella in one blood culture bottle. Concern for SBP. Lactic acid level 3.1. -continue antibiotics. -ID consult appreciated. Continue Zosyn. PPx: SCDs Discharge Planning: Awaiting hematology consult, continue IV antibiotics, may need repeat paracentesis
--- NOTE | 2018-07-10 20:49 | MB ---
cc: Chris Christie MD DATE: 07/10/2018 ATTENDING PHYSICIAN: Brock Tripathi MD REASON FOR CONSULTATION: Hematology consulted to render opinion regarding patient with anemia. HISTORY OF PRESENT ILLNESS: The patient is a 48-year-old male with a history of alcohol abuse, who presented to the hospital with complaint of increased abdominal swelling and shortness of breath. He stated he stopped drinking alcohol about 2 months ago. He usually drinks up to 10 beers a day and sometimes a pint of liquor. He started not feeling well about 2 months ago and stopped drinking. He subsequently noted increased swelling in the lower extremities and abdomen. He was also noted to be jaundiced. He came to the hospital and was noted to have liver failure and significant ascites. He had a paracentesis with removal about 10 liters of fluid, and his shortness of breath has improved. He was noted to have an anemia with hemoglobin of 7.3 when he first presented. It trended down to 5.8 and he received 1 unit of packed red blood cells. However, the hemoglobin trended back down to 7.1 today. He also has significantly elevated indirect bilirubin. He denies fever or chills. He has no chest pain or shortness of breath. He denies any dysuria or hematuria. His urine color is still very dark. Denies significant pain. PAST MEDICAL HISTORY: 1. Alcohol abuse. 2. Hypertension. 3. Ruptured kidney capsule. 4. Gastroesophageal reflux disease. 5. Hernia. PAST SURGICAL HISTORY: Knee surgery and hand surgery. FAMILY HISTORY: Has 2 brothers and 1 sister, all healthy. No hematologic disorders in the family. No family history of liver disease or jaundice. SOCIAL HISTORY: Alcohol abuse as above. Smokes about a pack a week. He used to work in [employer]. ALLERGIES: NO KNOWN DRUG ALLERGIES. CURRENT MEDICATIONS: 1. DuoNebs. 2. Calcium. 3. Folic acid. 4. Lasix. 5. Multivitamin. 6. Protonix. 7. Zosyn. 8. Thiamine. REVIEW OF SYSTEMS: CONSTITUTIONAL: As above. EYES: Negative. ENT: Negative. CARDIOVASCULAR: No chest pressure or palpitation. RESPIRATORY: As above. GASTROINTESTINAL: As above. GENITOURINARY: As above. MUSCULOSKELETAL: Negative. HEMATOLOGIC: As above. ENDOCRINE: Negative. DERMATOLOGIC: As above. PSYCHIATRIC: Negative. NEUROLOGIC: Negative. PHYSICAL EXAMINATION: VITAL SIGNS: Temperature 98.2, blood pressure 160/56, O2 saturation 91% on 2 liter nasal cannula. GENERAL: He is alert and oriented x 3, in no acute distress. HEENT: Atraumatic, normocephalic. Pupils are equal, round, reactive to light. Scleral icterus noted. Oropharynx dry mucosa. NECK: No thyromegaly. LYMPHATIC: No palpable clavicular, axillary or inguinal lymph nodes. CARDIOVASCULAR: Regular S1, S2 normal. LUNGS: Decreased breath sounds in the lung bases. ABDOMEN: Distended. Positive bowel sounds. Positive fluid wave. EXTREMITIES: 2+ bilateral lower extremity edema. No calf tenderness. SKIN: He is jaundiced. NEUROLOGIC: Nonfocal. LABORATORY DATA: Reviewed his blood work drawn during this hospital stay. ASSESSMENT: 1. Anemia, unknown chronicity. He presented with hemoglobin of 10.3 trended down to 5.8. He received a blood transfusion. Hemoglobin trend of 8.7, but now has trended back down to 7.1. No obvious GI bleeding noted. His LDH is slightly elevated. His indirect bilirubin is also elevated. Iron study and vitamin study did not show any deficiency. This possibly could be a blood loss anemia; however, with significantly elevated indirect bilirubin, will need to rule out hemolysis. We will have pathology review of the smear and check a Tamera study. Also, check his reticulocyte count, but it may be difficult to interpret given that he just received transfusion. We will also check for stool occult blood. Continue to monitor CBC for now. 2. Liver failure, likely due to alcohol abuse. Hepatitis screen was negative. Gastroenterology is following at this time. The indirect bilirubin is elevated, it may be due to lack of conjugation. 3. Thrombocytopenia due to underlying splenomegaly. No obvious bleeding noted. 4. Ascites due to liver failure. He had a paracentesis with removal more than 10 liters of fluid. The patient thinks it is reaccumulating. 5. Alcohol abuse. He last drank 2 months ago. RECOMMENDATIONS: 1. Proceed with laboratory evaluation outlined above, to look for hemolysis. 2. Check stool occult blood test. 3. Monitor CBC. Thank you, Dr. Tripathi, for asking me to see this patient. MD EULALIO Urbano/kirill , 06:49 PM , 07:02 PM
[2018-07-10 23:51] LABS: Ceruloplasmin 23 mg/dL (18-36)
[2018-07-11] MEDS: Piperacil/Tazo 4.5 GM Premix 4.5 GM/100 ML BAG IV.SIG SCH ×2 (05:21→12:14)
[2018-07-11 06:53] LABS: Reticulocyte Percent 6.1 % (0.4-3.0)
[2018-07-11 07:00] LABS: Baso # (Auto) 0.1 th/mm3 (0.0-0.2); Baso % (Auto) 1.6 % (0.0-2.0); Eos # (Auto) 0.3 th/mm3 (0.0-0.4); Hematocrit 25.7 % (39.0-51.0); Hemoglobin 9.2 gm/dL (13.0-17.0); Lymph # (Auto) 1.5 th/mm3 (1.0-4.8); Lymph % (Auto) 20.9 % (9.0-44.0); Mean Corpuscular HGB Conc 35.6 % (32.0-36.0); Mean Corpuscular Hemoglobin 33.9 pg (27.0-34.0); Mean Platelet Volume 7.8 fL (7.0-11.0); Mono # (Auto) 0.8 th/mm3 (0.0-0.9); Mono % (Auto) 11.2 % (0.0-8.0); Neut # (Auto) 4.5 th/mm3 (1.8-7.7); Neut % (Auto) 62.3 % (16.0-70.0); Platelet Count 87 th/mm3 (150-450); Red Cell Distribution Width 21.5 % (11.6-17.2); White Blood Count 7.1 th/mm3 (4.0-11.0)
[2018-07-11 07:14] LABS: INR 2.2 Ratio; Prothrombin Time 21.8 sec (9.8-11.6)
[2018-07-11 07:19] LABS: Albumin 2.4 g/dL (3.4-5.0); Anion Gap 7 meq/L (5-15); Aspartate Aminotransferase 53 U/L (15-37); Blood Urea Nitrogen 12 mg/dL (7-18); Carbon Dioxide 31.7 meq/L (21.0-32.0); Chloride 98 meq/L (98-107); Glomerular Filtration Rate Greater Than 89 mL/min (>89); Glucose,Random 96 mg/dL (74-106); Potassium 3.2 meq/L (3.5-5.1); Sodium 137 meq/L (136-145)
[2018-07-11 07:21] LABS: Alanine Aminotransferase 26 U/L (12-78); Alkaline Phosphatase 118 U/L (45-117)
[2018-07-11 07:30] LABS: Eosinophils 6 % (0-4); Erythrocyte Sedimentation Rate 1 mm/hr (0-15); Lymphocytes 23 % (9-44); Monocytes 9 % (0-8); Myelocytes 1 % (0-0)
[2018-07-11 07:31] LABS: Burr Cells 1+; Platelet Morphology Normal (Normal)
[2018-07-11 07:32] LABS: Acanthocytes 3+
[2018-07-11 07:34] LABS: Helmet Cells Occ
[2018-07-11] MEDS: Multivitamin/Minerals Therapeutic Tablet PO SCH (09:28)
[2018-07-11] MEDS: Folic Acid 1 MG Tablet PO SCH (09:28)
[2018-07-11] MEDS: Furosemide 40 MG Tablet PO SCH (09:28)
[2018-07-11] MEDS: Morphine Inj 4 MG/ML Vial IV.PUSH PRN ×2 (09:39→20:25)
[2018-07-11] MEDS: Pantoprazole Inj 40 MG Vial IV.PUSH SCH ×2 (12:08→21:23)
--- NOTE | 2018-07-11 13:42 | P.PNONC ---
Subjective Interval history: Patient feels less stronger after transfusion. He stated that the abdomen is getting bigger again. He has no chest pain or palpitation. He has no shortness of breath or cough. He denies any bleeding. Objective Vital Signs/Intake & Output: Vital Signs 07/10/18 16:00 07/10/18 16:56 07/10/18 19:50 Temperature 98.2 F 98 F Pulse Rate 90 69 90 Respiratory Rate 18 12 Blood Pressure 116/56 L 117/59 L Pulse Oximetry 91 L 07/10/18 20:00 07/10/18 20:04 07/10/18 22:50 Temperature 97.7 F 98.4 F 98 F Pulse Rate 89 92 H 89 Respiratory Rate 18 12 12 Blood Pressure 125/58 L 111/60 116/59 L Pulse Oximetry 91 L 07/11/18 00:00 07/11/18 04:00 07/11/18 08:00 Temperature 98.1 F 98 F 98.9 F Pulse Rate 84 91 H 81 Respiratory Rate 18 18 18 Blood Pressure 118/66 104/57 L 115/58 L Pulse Oximetry 97 96 93 L Intake & Output 07/10/18 07/11/18 07/11/18 18:59 06:59 18:59 Intake Total 200 / 200 1480 / 1480 350 / 350 Output Total 175 / 175 Balance 200 / 200 1305 / 1305 350 / 350 Weight 83.7 kg Intake: IV 200 / 200 200 / 200 350 / 350 Zosyn 4.5 GM Premix 4.5 gm In 200 / 200 200 / 200 100 / 100 100 ml @ 200 mls/hr IV.SIG Q6H [facility] Rx#:[id number] Oral 480 / 480 Intake (Blood Product) Amt 0 / 0 800 / 800 Rbc As-3 Leukoreduced Unit 400 / 400 [id number] Rbc As-3 Leukoreduced Unit 0 / 0 400 / 400 [id number] Output: Urine 175 / 175 Other: Date of Last Bowel Movement 07/07/18 07/07/18 # Bowel Movements 0 Result Diagrams: 07/11/18 05:11 07/11/18 05:21 Laboratory Results: Laboratory Results - last 24 hr 07/07/18 07/10/18 07/10/18 21:55 13:48 13:48 WBC RBC Hgb Hct MCV MCH MCHC RDW Plt Count MPV Prelim Diff (Auto) Neut % (Auto) Lymph % (Auto) [place] % (Auto) Eos % (Auto) Baso % (Auto) Neut # (Auto) Lymph # (Auto) [place] # (Auto) Eos # (Auto) Baso # (Auto) WBC Differential Seg Neuts % (Manual) Lymphocytes % (Manual) Monocytes % (Manual) Eosinophils % (Manual) Basophils % (Manual) Myelocytes % (Man) Abs Neuts (Manual) Differential Comment Platelet Estimate Platelet Morphology Helmet Cells Rudd Cells Acanthocytes (Spur) Smear Path Review ESR Retic Count Absolute Retic Haptoglobin Less than 10 L PT INR Sodium Potassium Chloride Carbon Dioxide Anion Gap BUN Creatinine Estimated GFR Random Glucose Calcium Total Bilirubin Direct Bilirubin Indirect Bilirubin AST ALT Alkaline Phosphatase Lactate Dehydrogenase 364 H Total Protein Albumin Ceruloplasmin 23 HUEY Screen Negative HUEY Titer ND HUEY Pattern ND SS-A Antibody <1.0 neg SS-B Antibody <1.0 neg Sm (Sandoval) Antibody <1.0 neg SM/DENTAL [employer]ORATORY WORKER Antibody <1.0 neg Scl-70 Antibody <1.0 neg Blood Type A Negative Antibody Screen Negative Direct Antiglob Test MTS Gel Crossmatch See Detail 07/11/18 07/11/18 07/11/18 05:11 05:11 05:11 WBC 7.1 RBC 2.70 L Hgb 9.2 L D Hct 25.7 L MCV 95.0 D MCH 33.9 MCHC 35.6 RDW 21.5 H Plt Count 87 L MPV 7.8 Prelim Diff (Auto) Slide review pending Neut % (Auto) 62.3 Lymph % (Auto) 20.9 [place] % (Auto) 11.2 H Eos % (Auto) 4.0 Baso % (Auto) 1.6 Neut # (Auto) 4.5 Lymph # (Auto) 1.5 [place] # (Auto) 0.8 Eos # (Auto) 0.3 Baso # (Auto) 0.1 WBC Differential Manual diff final Seg Neuts % (Manual) 57 Lymphocytes % (Manual) 23 Monocytes % (Manual) 9 H Eosinophils % (Manual) 6 H Basophils % (Manual) 4 H Myelocytes % (Man) 1 H Abs Neuts (Manual) 4.1 Differential Comment . Platelet Estimate Low L Platelet Morphology Normal Helmet Cells Occ H Andrew Cells 1+ H Acanthocytes (Spur) 3+ H Smear Path Review ESR 1 Retic Count Absolute Retic Haptoglobin PT 21.8 H INR 2.2 Sodium Potassium Chloride Carbon Dioxide Anion Gap BUN Creatinine Estimated GFR Random Glucose Calcium Total Bilirubin Direct Bilirubin Indirect Bilirubin AST ALT Alkaline Phosphatase Lactate Dehydrogenase Total Protein Albumin Ceruloplasmin HUEY Screen HUEY Titer HUEY Pattern SS-A Antibody SS-B Antibody Sm (Sandoval) Antibody SM/D[employer] WORKER Antibody Scl-70 Antibody Blood Type Antibody Screen Direct Antiglob Test MTS Gel Crossmatch 07/11/18 07/11/18 07/11/18 05:11 05:21 05:21 WBC RBC Hgb Hct MCV MCH MCHC RDW Plt Count MPV Prelim Diff (Auto) Neut % (Auto) Lymph % (Auto) [place] % (Auto) Eos % (Auto) Baso % (Auto) Neut # (Auto) Lymph # (Auto) [place] # (Auto) Eos # (Auto) Baso # (Auto) WBC Differential Seg Neuts % (Manual) Lymphocytes % (Manual) Monocytes % (Manual) Eosinophils % (Manual) Basophils % (Manual) Myelocytes % (Man) Abs Neuts (Manual) Differential Comment Platelet Estimate Platelet Morphology Helmet Cells Rudd Cells Acanthocytes (Spur) Smear Path Review ESR Retic Count 6.1 H Absolute Retic 171.8 H Haptoglobin PT INR Sodium 137 Potassium 3.2 L Chloride 98 Carbon Dioxide 31.7 Anion Gap 7 BUN 12 Creatinine 0.85 Estimated GFR Greater than 89 Random Glucose 96 Calcium 8.0 L Total Bilirubin 15.0 H Direct Bilirubin 4.9 H Indirect Bilirubin 10.1 H AST 53 H ALT 26 Alkaline Phosphatase 118 H Lactate Dehydrogenase Total Protein 5.0 L Albumin 2.4 L Ceruloplasmin HUEY Screen HUEY Titer HUEY Pattern SS-A Antibody SS-B Antibody Sm (Sandoval) Antibody SM/D[employer] WORKER Antibody Scl-70 Antibody Blood Type Antibody Screen Direct Antiglob Test Negative MTS Gel Crossmatch Culture Results: Microbiology 07/07/18 12:15 Aerobic Blood Culture - Preliminary Blood - Peripheral No growth in 4 days Anaerobic Blood Culture - Preliminary No growth in 4 days 07/07/18 12:09 Aerobic Blood Culture - Final Blood - Peripheral Klebsiella pneumoniae Anaerobic Blood Culture - Preliminary No growth in 4 days Medications: Active Medications Generic Name Dose Route Start Last Admin Trade Name Freq PRN Reason Stop Dose Admin Albuterol 1 ampul 07/07/18 20:00 07/11/18 12:48 Duoneb Neb (Bird) NEB Not Given Q6HR WHILE AWAKE NEB BIRD Calcium Carbonate 500 mg 07/08/18 01:49 07/08/18 02:09 Tums Chew CHEW 500 mg Q2H PRN Administration INDIGESTION Folic Acid 1 mg 07/07/18 09:00 07/11/18 09:28 Folic Acid PO 07/12/18 08:59 1 mg DAILY BIRD Administration Furosemide 40 mg 07/11/18 09:00 07/11/18 09:28 Lasix PO 40 mg DAILY BIRD Administration Morphine Sulfate 4 mg 07/07/18 11:41 07/11/18 09:39 Morphine Inj IV.PUSH 4 mg Q4H PRN Administration ABDOMINAL PAIN Multivitamins/Minerals 1 tab 07/07/18 09:00 07/11/18 09:28 Theragran-M PO 07/12/18 08:59 1 tab DAILY BIRD Administration Ondansetron HCl 4 mg 07/06/18 22:46 07/09/18 09:25 Zofran Inj IV.PUSH 4 mg Q6H PRN Administration NAUSEA OR VOMITING Pantoprazole Sodium 40 mg 07/07/18 10:22 07/11/18 12:08 Protonix Inj IV.PUSH 40 mg Q12H BIRD Administration Potassium Chloride 10 meq 07/11/18 09:00 07/11/18 09:28 Klor-Con 10 PO 10 meq DAILY BIRD Administration Thiamine HCl 100 mg 07/07/18 09:00 07/11/18 09:28 Vitamin B1 PO 100 mg DAILY BIRD Administration Objective Remarks: GENERAL: Well-nourished, well-developed patient. Weak. SKIN: Warm and dry. Jaundice. HEAD: Normocephalic. EYES: + scleral icterus. No injection or drainage. NECK: Supple, trachea midline. No JVD or lymphadenopathy. LYMPHATIC: No adenopathy. CARDIOVASCULAR: Regular rate and rhythm without murmurs. RESPIRATORY: Breath sounds equal bilaterally. No accessory muscle use. GASTROINTESTINAL: Abdomen soft, distended, positive fluid wave. Positive bowel sounds. EXTREMITIES: No cyanosis, 2+ bilateral lower extremity edema. MUSCULOSKELETAL: Adequate muscle tone. NEUROLOGICAL: No obvious focal deficit. Awake, alert, and oriented x3. PSYCHIATRIC: Appropriate mood and affect; insight and judgment normal. Assessment/Plan (1) Ascites Code(s): R18.8 - Other ascites Status: Acute (2) Alcoholic hepatitis Code(s): K70.10 - Alcoholic hepatitis without ascites Status: Acute (3) Coagulopathy Code(s): D68.9 - Coagulation defect, unspecified Status: Acute - Plan 1. Anemia, unknown chronicity. He presented with hemoglobin of 10.3 trended down to 5.8. He received a blood transfusion. Hemoglobin trend of 8.7, but now has trended back down to 7.1. No obvious GI bleeding noted. His LDH is slightly elevated. His indirect bilirubin is also elevated. Iron study and vitamin study did not show any deficiency. This possibly could be a blood loss anemia; however, with significantly elevated indirect bilirubin, will need to rule out hemolysis. We will have pathology review of the smear and check a Tamera study. Also, check his reticulocyte count, but it may be difficult to interpret given that he just received transfusion. We will also check for stool occult blood. Continue to monitor CBC for now. July 11: Hemoglobin trended up to 9.2 with transfusion. Reticulocyte count is elevated but difficult to interpret due to recent transfusion. Haptoglobin is low but that may be due to liver failure. Direct Tamera test Is negative. Indirect bilirubin is still elevated. However, there is no sign of Autoimmune hemolytic anemia. Stool occult blood test is pending. May need bone marrow biopsy if anemia does not improve. 2. Liver failure, likely due to alcohol abuse. Hepatitis screen was negative. Gastroenterology is following at this time. The indirect bilirubin is elevated, it may be due to deficiency and conjugation. 3. Thrombocytopenia due to underlying splenomegaly. No obvious bleeding noted. He may also have consumptive process. The count trended down to 87,000. 4. Ascites due to liver failure. He had a paracentesis with removal more than 10 liters of fluid. The ascites is reaccumulating. 5. Alcohol abuse. He last drank 2 months ago. RECOMMENDATIONS: 1. Reviewed lab work with patient. 2. Check stool occult blood test. 3. Monitor CBC and transfuse to keep hemoglobin around 8. 4. Consider bone marrow biopsy if anemia does not improve. (1) Ascites Qualifiers: Ascites type: due to alcoholic hepatitis Qualified Code(s): K70.11 - Alcoholic hepatitis with ascites (2) Alcoholic hepatitis Qualifiers: Ascites presence: with ascites Qualified Code(s): K70.11 - Alcoholic hepatitis with ascites
[2018-07-11 15:59] LABS: Hematocrit 26.3 % (39.0-51.0); Hemoglobin 9.2 gm/dL (13.0-17.0); Mean Corpuscular HGB Conc 35.1 % (32.0-36.0); Mean Corpuscular Hemoglobin 33.6 pg (27.0-34.0); Mean Platelet Volume 7.8 fL (7.0-11.0); Platelet Count 92 th/mm3 (150-450); Red Blood Count 2.74 mil/mm3 (4.50-5.90); Red Cell Distribution Width 21.5 % (11.6-17.2); White Blood Count 6.5 th/mm3 (4.0-11.0)
--- NOTE | 2018-07-11 16:51 | P.PNIM ---
Subjective Interval history: Follow-up bacteremia ascites, severe anemia, alcohol abuse, acute respiratory failure, acute renal failure and hypokalemia Patient seen and examined laying in bed, complains of bloating stomach and edema. Denies any shortness of breath at this time however stated he was short of breath before the fluid was taken out of him. Patient denies any chest pain or shortness of breath, denies any abdominal pain however discomfort on the swelling and drainage on the paracentesis site. Nurse denies any acute complaints overnight Physical Exam Vital signs: Vital Signs 07/10/18 16:56 07/10/18 19:50 07/10/18 20:00 Temperature 98.2 F 98 F 97.7 F Pulse Rate 69 90 89 Respiratory Rate 18 12 18 Blood Pressure 116/56 L 117/59 L 125/58 L Pulse Oximetry 91 L 91 L 07/10/18 20:04 07/10/18 22:50 07/11/18 00:00 Temperature 98.4 F 98 F 98.1 F Pulse Rate 92 H 89 84 Respiratory Rate 12 12 18 Blood Pressure 111/60 116/59 L 118/66 Pulse Oximetry 97 07/11/18 04:00 07/11/18 08:00 07/11/18 12:00 Temperature 98 F 98.9 F 97.6 F Pulse Rate 91 H 81 85 Respiratory Rate 18 18 18 Blood Pressure 104/57 L 115/58 L 110/64 Pulse Oximetry 96 93 L 92 L 07/11/18 16:00 Temperature Pulse Rate 83 Respiratory Rate Blood Pressure Pulse Oximetry Intake & Output 07/10/18 07/11/18 07/11/18 18:59 06:59 18:59 Intake Total 200 / 200 1480 / 1480 350 / 350 Output Total 175 / 175 Balance 200 / 200 1305 / 1305 350 / 350 Weight 83.7 kg Intake: IV 200 / 200 200 / 200 350 / 350 Zosyn 4.5 GM Premix 4.5 gm In 200 / 200 200 / 200 100 / 100 100 ml @ 200 mls/hr IV.SIG Q6H [facility] Rx#:[id number] Oral 480 / 480 Intake (Blood Product) Amt 0 / 0 800 / 800 Rbc As-3 Leukoreduced Unit 400 / 400 [id number] Rbc As-3 Leukoreduced Unit 0 / 0 400 / 400 [id number] Output: Urine 175 / 175 Other: Date of Last Bowel Movement 07/07/18 07/07/18 # Bowel Movements 0 Narrative: GENERAL: Well-developed, well-nourished jaundiced looking male in no apparent distress SKIN: Warm and dry. Jaundice HEAD: Atraumatic. Normocephalic. EYES: Pupils equal and round. No scleral icterus. No injection or drainage. ENT: No nasal bleeding or discharge. Mucous membranes pink and moist. NECK: Trachea midline. No JVD. CARDIOVASCULAR: Regular rate and rhythm. RESPIRATORY: No accessory muscle use. Clear to auscultation. Breath sounds equal bilaterally. GASTROINTESTINAL: Abdomen distended, non-tender, with no peritoneal signs MUSCULOSKELETAL: Extremities without clubbing, cyanosis,. Positive for ascites and lower extremity edema 2+ pitting NEUROLOGICAL: Awake and alert. No obvious cranial nerve deficits. Motor grossly within normal limits. Generalized weakness moving all 4 extremities. Normal speech. PSYCHIATRIC: Appropriate mood and affect; insight and judgment normal. Gen.: No acute distress. Positive jaundice. Head: Normocephalic. Atraumatic. EENT: Pupils equal round and reactive to light. Nose without drainage. Airway intact. Throat without injection. Positive scleral icterus. Cardiovascular: Regular rate and rhythm. No murmurs, rubs or gallops. Respiratory: Scattered rhonchi. Abdomen: Soft, markedly distended, nontender to palpation. No peritoneal signs. : Left inguinal hernia appreciated. Musculoskeletal: No gross deformities. + LE edema. Skin: No obvious rashes or erythema. Neuro: Sensory and motor grossly intact. Cranial nerves II through XII grossly intact. Results - Labs CBC & Chem 7: 07/11/18 15:27 07/11/18 05:21 Laboratory Results - last 24 hr 07/07/18 07/10/18 07/11/18 21:55 13:48 05:11 WBC 7.1 RBC 2.70 L Hgb 9.2 L D Hct 25.7 L MCV 95.0 D MCH 33.9 MCHC 35.6 RDW 21.5 H Plt Count 87 L MPV 7.8 Prelim Diff (Auto) Slide review pending Neut % (Auto) 62.3 Lymph % (Auto) 20.9 [place] % (Auto) 11.2 H Eos % (Auto) 4.0 Baso % (Auto) 1.6 Neut # (Auto) 4.5 Lymph # (Auto) 1.5 [place] # (Auto) 0.8 Eos # (Auto) 0.3 Baso # (Auto) 0.1 WBC Differential Manual diff final Seg Neuts % (Manual) 57 Lymphocytes % (Manual) 23 Monocytes % (Manual) 9 H Eosinophils % (Manual) 6 H Basophils % (Manual) 4 H Myelocytes % (Man) 1 H Abs Neuts (Manual) 4.1 Differential Comment . Platelet Estimate Low L Platelet Morphology Normal Helmet Cells Occ H [place] Cells 1+ H Acanthocytes (Spur) 3+ H Smear Path Review ESR 1 Retic Count Absolute Retic PT INR Sodium Potassium Chloride Carbon Dioxide Anion Gap BUN Creatinine Estimated GFR Random Glucose Calcium Total Bilirubin Direct Bilirubin Indirect Bilirubin AST ALT Alkaline Phosphatase Total Protein Albumin Ceruloplasmin 23 HUEY Screen Negative HUEY Titer ND HUEY Pattern ND SS-A Antibody <1.0 neg SS-B Antibody <1.0 neg Sm ([place]) Antibody <1.0 neg SM/CASKET UPHOLSTERER Antibody <1.0 neg Scl-70 Antibody <1.0 neg Blood Type A Negative Antibody Screen Negative Direct Antiglob Test MTS Gel Crossmatch See Detail 07/11/18 07/11/18 07/11/18 05:11 05:11 05:11 WBC RBC Hgb Hct MCV MCH MCHC RDW Plt Count MPV Prelim Diff (Auto) Neut % (Auto) Lymph % (Auto) [place] % (Auto) Eos % (Auto) Baso % (Auto) Neut # (Auto) Lymph # (Auto) [place] # (Auto) Eos # (Auto) Baso # (Auto) WBC Differential Seg Neuts % (Manual) Lymphocytes % (Manual) Monocytes % (Manual) Eosinophils % (Manual) Basophils % (Manual) Myelocytes % (Man) Abs Neuts (Manual) Differential Comment Platelet Estimate Platelet Morphology Helmet Cells Andrew Cells Acanthocytes (Spur) Smear Path Review ESR Retic Count Absolute Retic PT 21.8 H INR 2.2 Sodium Potassium Chloride Carbon Dioxide Anion Gap BUN Creatinine Estimated GFR Random Glucose Calcium Total Bilirubin Direct Bilirubin Indirect Bilirubin AST ALT Alkaline Phosphatase Total Protein Albumin Ceruloplasmin HUEY Screen HUEY Titer HUEY Pattern SS-A Antibody SS-B Antibody Sm ([place]) Antibody SM/CASKET UPHOLSTERER Antibody Scl-70 Antibody Blood Type Antibody Screen Direct Antiglob Test Negative MTS Gel Crossmatch 07/11/18 07/11/18 07/11/18 05:21 05:21 15:27 WBC 6.5 RBC 2.74 L Hgb 9.2 L Hct 26.3 L MCV 96.0 MCH 33.6 MCHC 35.1 RDW 21.5 H Plt Count 92 L MPV 7.8 Prelim Diff (Auto) Neut % (Auto) Lymph % (Auto) [place] % (Auto) Eos % (Auto) Baso % (Auto) Neut # (Auto) Lymph # (Auto) [place] # (Auto) Eos # (Auto) Baso # (Auto) WBC Differential Seg Neuts % (Manual) Lymphocytes % (Manual) Monocytes % (Manual) Eosinophils % (Manual) Basophils % (Manual) Myelocytes % (Man) Abs Neuts (Manual) Differential Comment Platelet Estimate Platelet Morphology Helmet Cells [place] Cells Acanthocytes (Spur) Smear Path Review ESR Retic Count 6.1 H Absolute Retic 171.8 H PT INR Sodium 137 Potassium 3.2 L Chloride 98 Carbon Dioxide 31.7 Anion Gap 7 BUN 12 Creatinine 0.85 Estimated GFR Greater than 89 Random Glucose 96 Calcium 8.0 L Total Bilirubin 15.0 H Direct Bilirubin 4.9 H Indirect Bilirubin 10.1 H AST 53 H ALT 26 Alkaline Phosphatase 118 H Total Protein 5.0 L Albumin 2.4 L Ceruloplasmin HUEY Screen HUEY Titer HUEY Pattern SS-A Antibody SS-B Antibody Sm ([place]) Antibody SM/CASKET UPHOLSTERER Antibody Scl-70 Antibody Blood Type Antibody Screen Direct Antiglob Test MTS Gel Crossmatch Microbiology 07/07/18 12:15 Blood - Peripheral Aerobic Blood Culture - Preliminary No growth in 4 days 07/07/18 12:15 Blood - Peripheral Anaerobic Blood Culture - Preliminary No growth in 4 days 07/07/18 12:09 Blood - Peripheral Aerobic Blood Culture - Final Klebsiella pneumoniae 07/07/18 12:09 Blood - Peripheral Anaerobic Blood Culture - Preliminary No growth in 4 days Assessment and Plan - Assessment (1) Ascites Code(s): R18.8 - Other ascites Status: Acute (2) Alcoholic hepatitis Code(s): K70.10 - Alcoholic hepatitis without ascites Status: Acute (3) Acute dyspnea Code(s): R06.00 - Dyspnea, unspecified Status: Acute (4) Coagulopathy Code(s): D68.9 - Coagulation defect, unspecified Status: Acute - Plan Ascites/jaundice Likely secondary to liver failure from alcohol abuse - Hepatitis profile negative - CT of the abdomen/pelvis with ascites. AFP 3.4. GI consult appreciated. Status post paracentesis 07/08/2018. -GI following -s/p IV albumin -follow LFTs -Advance diet as tolerated Bacteremia Suspected SBP Klebsiella in one blood culture bottle. Concern for SBP. Lactic acid level 3.1. -Status post IV Zosyn, discontinued -Discussed with ID Dr. Rios, and Dr. Loyola recommended to discontinue Zosyn and start on p.o. Cipro twice daily for 10 days then continue daily for SBP prophylaxis -Monitor signs and symptoms -No fever no chills, WBC improved to 6.5 -Monitor CBC Severe anemia pt reported blood in his urine, but that is likely s/t elevated bilirubin levels - UA negative for blood -Improved after two units of red cells - Hemoccult negative -LDH, indirect bilirubin elevated, haptoglobin decreased. -follow CBC and transfuse as needed. s/p transfusion two additional units 07/10. -hematology consult requested. Alcohol abuse Reports drinking 8-10 beers daily with 1 pint of hard liquor. He says he has not had a drink in 2 months. -[facility] protocol. -Patient counseled on alcohol cessation. Acute respiratory failure CXR with bilateral infiltrates and effusions. -oxygen and nebs as needed. -BiPAP as needed. Currently on nasal cannula. -Status post IV Zosyn Changed to Cipro p.o. 500 mg twice daily for 10 days then continue daily dose prophylactic for SBP -Lasix 40 mg IV BID switched to 40 mg PO daily. Acute renal failure Improved. -follow BMP, albumin level - avoid nephrotoxins. Hypoalbuminemia -Monitor albumin level Hypokalemia Likely s/t decreased PO intake. Exacerbated by Lasix. -Monitor BMP, replace as needed PPx: SCDs Code Status: Full code Discussed Condition With: Patient and nurse Dr. Rios/ID Dr. Loyola (1) Ascites Qualifiers: Ascites type: due to alcoholic hepatitis Qualified Code(s): K70.11 - Alcoholic hepatitis with ascites (2) Alcoholic hepatitis Qualifiers: Ascites presence: with ascites Qualified Code(s): K70.11 - Alcoholic hepatitis with ascites
[2018-07-11] MEDS: Ciprofloxacin 500 MG Tablet PO SCH (20:25)
[2018-07-12] MEDS: Morphine Inj 4 MG/ML Vial IV.PUSH PRN ×4 (01:18→13:56)
[2018-07-12] MEDS: Ciprofloxacin 500 MG Tablet PO SCH (08:47)
[2018-07-12] MEDS: Furosemide 40 MG Tablet PO SCH (08:48)
[2018-07-12] MEDS ORDERED: Spironolactone 25 MG Tablet PO SCH (09:00)
[2018-07-12 09:06] LABS: Baso % (Auto) 0.5 % (0.0-2.0); Eos # (Auto) 0.2 th/mm3 (0.0-0.4); Hemoglobin 9.1 gm/dL (13.0-17.0); Lymph # (Auto) 1.3 th/mm3 (1.0-4.8); Lymph % (Auto) 18.7 % (9.0-44.0); Mean Corpuscular HGB Conc 34.8 % (32.0-36.0); Mean Corpuscular Hemoglobin 33.8 pg (27.0-34.0); Mean Corpuscular Volume 97.1 fL (80.0-100.0); Neut # (Auto) 4.4 th/mm3 (1.8-7.7); Neut % (Auto) 63.8 % (16.0-70.0); Platelet Count 80 th/mm3 (150-450); Red Blood Count 2.68 mil/mm3 (4.50-5.90); Red Cell Distribution Width 22.2 % (11.6-17.2); White Blood Count 6.9 th/mm3 (4.0-11.0)
[2018-07-12 09:12] LABS: Prothrombin Time 20.7 sec (9.8-11.6)
[2018-07-12 09:26] LABS: Anion Gap 3 meq/L (5-15); Blood Urea Nitrogen 12 mg/dL (7-18); Calcium 7.8 mg/dL (8.5-10.1); Carbon Dioxide 30.6 meq/L (21.0-32.0); Chloride 99 meq/L (98-107); Glomerular Filtration Rate Greater Than 89 mL/min (>89); Glucose,Random 99 mg/dL (74-106); Potassium 3.4 meq/L (3.5-5.1); Sodium 133 meq/L (136-145)
[2018-07-12] MEDS: Pantoprazole Inj 40 MG Vial IV.PUSH SCH (09:34)
[2018-07-12 09:40] LABS: Acanthocytes 2+; Burr Cells 1+
[2018-07-12 09:41] LABS: Platelet Morphology Normal (Normal)
[2018-07-12] MEDS ORDERED: Spironolactone 50 MG Tablet PO SCH (11:51)
--- NOTE | 2018-07-12 12:01 | P.PNONC ---
Subjective Interval history: Afebrile Patient resting in bed in no acute distress States he is wondering if he will need another paracentesis before discharge Complaining of generalized pain Objective Vital Signs/Intake & Output: Vital Signs 07/11/18 12:00 07/11/18 16:00 07/11/18 20:00 Temperature 97.6 F 98.5 F 98.1 F Pulse Rate 85 75 88 Respiratory Rate 18 18 16 Blood Pressure 110/64 112/53 L 108/59 L Pulse Oximetry 92 L 97 98 07/12/18 00:00 07/12/18 04:00 07/12/18 08:00 Temperature 98.0 F 98.4 F 98.1 F Pulse Rate 90 92 H 85 Respiratory Rate 18 17 18 Blood Pressure 118/58 L 121/59 L 116/74 Pulse Oximetry 93 L 93 L 91 L Intake & Output 07/11/18 07/12/18 07/12/18 18:59 06:59 18:59 Intake Total 830 / 830 600 / 600 Output Total 750 / 750 400 / 400 Balance 80 / 80 200 / 200 Weight 180 lb 12.465 oz Intake: IV 350 / 350 Zosyn 4.5 GM Premix 4.5 gm In 100 / 100 100 ml @ 200 mls/hr IV.SIG Q6H [facility] Rx#:[id number] Oral 480 / 480 600 / 600 Output: Urine 750 / 750 400 / 400 Other: Date of Last Bowel Movement 07/10/18 # Bowel Movements 1 Result Diagrams: 07/12/18 08:25 07/12/18 08:25 Laboratory Results: Laboratory Results - last 24 hr 07/11/18 07/12/18 07/12/18 15:27 08:25 08:25 WBC 6.5 6.9 RBC 2.74 L 2.68 L Hgb 9.2 L 9.1 L Hct 26.3 L 26.0 L MCV 96.0 97.1 MCH 33.6 33.8 MCHC 35.1 34.8 RDW 21.5 H 22.2 H Plt Count 92 L 80 L MPV 7.8 8.0 Prelim Diff (Auto) Slide review pending Neut % (Auto) 63.8 Lymph % (Auto) 18.7 [place] % (Auto) 14.0 H Eos % (Auto) 3.0 Baso % (Auto) 0.5 Neut # (Auto) 4.4 Lymph # (Auto) 1.3 [place] # (Auto) 1.0 H Eos # (Auto) 0.2 Baso # (Auto) 0.0 WBC Differential . Diff Scan Auto diff confirmed Differential Comment . Platelet Estimate Low L Platelet Morphology Normal Andrew Cells 1+ H Acanthocytes (Spur) 2+ H PT 20.7 H INR 2.0 Sodium Potassium Chloride Carbon Dioxide Anion Gap BUN Creatinine Estimated GFR Random Glucose Calcium 07/12/18 08:25 WBC RBC Hgb Hct MCV MCH MCHC RDW Plt Count MPV Prelim Diff (Auto) Neut % (Auto) Lymph % (Auto) [place] % (Auto) Eos % (Auto) Baso % (Auto) Neut # (Auto) Lymph # (Auto) [place] # (Auto) Eos # (Auto) Baso # (Auto) WBC Differential Diff Scan Differential Comment Platelet Estimate Platelet Morphology Andrew Cells Acanthocytes (Spur) PT INR Sodium 133 L Potassium 3.4 L Chloride 99 Carbon Dioxide 30.6 Anion Gap 3 L BUN 12 Creatinine 0.85 Estimated GFR Greater than 89 Random Glucose 99 Calcium 7.8 L Culture Results: Microbiology 07/07/18 12:15 Aerobic Blood Culture - Final Blood - Peripheral No growth in 5 days Anaerobic Blood Culture - Final No growth in 5 days 07/07/18 12:09 Aerobic Blood Culture - Final Blood - Peripheral Klebsiella pneumoniae Anaerobic Blood Culture - Final No growth in 5 days Medications: Active Medications Generic Name Dose Route Start Last Admin Trade Name Freq PRN Reason Stop Dose Admin Calcium Carbonate 500 mg 07/08/18 01:49 07/08/18 02:09 Tums Chew CHEW 500 mg Q2H PRN Administration INDIGESTION Ciprofloxacin HCl 500 mg 07/11/18 21:00 07/12/18 08:47 Cipro PO 07/21/18 21:00 500 mg Q12HR NEY Administration Furosemide 40 mg 07/11/18 09:00 07/12/18 08:48 Lasix PO 40 mg DAILY NEY Administration Morphine Sulfate 4 mg 07/07/18 11:41 07/12/18 09:34 Morphine Inj IV.PUSH 4 mg Q4H PRN Administration ABDOMINAL PAIN Ondansetron HCl 4 mg 07/06/18 22:46 07/09/18 09:25 Zofran Inj IV.PUSH 4 mg Q6H PRN Administration NAUSEA OR VOMITING Pantoprazole Sodium 40 mg 07/07/18 10:22 07/12/18 09:34 Protonix Inj IV.PUSH 40 mg Q12H NEY Administration Potassium Chloride 10 meq 07/11/18 09:00 07/12/18 08:48 Klor-Con 10 PO 10 meq DAILY NEY Administration Thiamine HCl 100 mg 07/07/18 09:00 07/12/18 08:48 Vitamin B1 PO 100 mg DAILY NEY Administration Objective Remarks: GENERAL: Chronically ill-appearing middle-aged male resting in bed in no acute distress SKIN: Warm and dry. HEAD: Normocephalic. EYES: No scleral icterus. No injection or drainage. NECK: Supple, trachea midline. No JVD or lymphadenopathy. CARDIOVASCULAR: Regular rate and rhythm without murmurs. RESPIRATORY: Breath sounds equal bilaterally. No accessory muscle use. GASTROINTESTINAL: Abdomen soft, non-tender, nondistended. EXTREMITIES: Bilateral lower extremity edema MUSCULOSKELETAL: Generalized weakness NEUROLOGICAL: No obvious focal deficit. Awake, alert, and oriented x3. Assessment/Plan (1) Ascites Code(s): R18.8 - Other ascites Status: Acute (2) Alcoholic hepatitis Code(s): K70.10 - Alcoholic hepatitis without ascites Status: Acute (3) Coagulopathy Code(s): D68.9 - Coagulation defect, unspecified Status: Acute - Plan 1. Anemia, unknown chronicity. He presented with hemoglobin of 10.3 trended down to 5.8. He received a blood transfusion. Hemoglobin trend of 8.7, but now has trended back down to 7.1. No obvious GI bleeding noted. His LDH is slightly elevated. His indirect bilirubin is also elevated. Iron study and vitamin study did not show any deficiency. This possibly could be a blood loss anemia; however, with significantly elevated indirect bilirubin, will need to rule out hemolysis. We will have pathology review of the smear and check a Tamera study. Also, check his reticulocyte count, but it may be difficult to interpret given that he just received transfusion. We will also check for stool occult blood. Continue to monitor CBC for now. July 12: Hemoglobin stable. Hemoccult stool negative. May need bone marrow biopsy if anemia does not improve. 2. Liver failure, likely due to alcohol abuse. Hepatitis screen was negative. Gastroenterology is following at this time. 3. Thrombocytopenia due to underlying splenomegaly. No obvious bleeding noted. He may also have consumptive process. The count trended down to 87,000. 4. Ascites due to liver failure. He had a paracentesis with removal more than 10 liters of fluid. The ascites is reaccumulating. 5. Alcohol abuse. He last drank 2 months ago. RECOMMENDATIONS: 1. Continue to monitor CBC. To keep hemoglobin at 8 or higher. 2. Pancytopenia likely due to liver disease. 3. Continue supportive care. - Attending Statement The exam, history, and the medical decision-making described in the above note were completed with the assistance of the mid-level provider. I reviewed and agree with the findings presented. I attest that I had a [id number] encounter with the patient on the same day, and personally performed and documented my assessment and findings in the medical record. Patient stated that his abdomen is distended. He denies any bleeding or bruising. His hemoglobin is stable after transfusion. No obvious hemolysis noted. The cytopenia likely due to underlying liver disease and hypersplenism. Can consider bone marrow biopsy if he has worsening cytopenia. Continue supportive care for now. (1) Ascites Qualifiers: Ascites type: due to alcoholic hepatitis Qualified Code(s): K70.11 - Alcoholic hepatitis with ascites (2) Alcoholic hepatitis Qualifiers: Ascites presence: with ascites Qualified Code(s): K70.11 - Alcoholic hepatitis with ascites
--- NOTE | 2018-07-12 12:04 | P.DS ---
Date of admission: 07/06/18 23:11 Primary care physician: No Primary Care Physician Attending physician on discharge: Tony Loyola Anticipated date of discharge: 07/12/18 Brief History from admission: 48-year-old male with a past medical history significant for alcohol abuse presents to the emergency department for the evaluation of abdominal swelling and shortness of breath. The patient reports that approximately 8 weeks ago he started to have bilateral lower extremity edema. He reports that the swelling continued to worsen and approximately 4 weeks ago his abdomen began to swell. He reports increasing swelling in his abdomen with accompanying shortness of breath. He has been jaundiced for approximately 8 weeks. The patient reports drinking 8-10 beers a day with 1 pint of liquor daily as well. He denies any history of IV drug abuse or hepatitis C. No chest pain. Associated abdominal pain. No nausea/vomiting/diarrhea. The patient reports that his last drink was 2 months ago. No fever/chills. No focal neurologic deficits. Patient update on day of discharge: Follow-up and discharge planning for bacteremia ascites, severe anemia, alcohol abuse, acute respiratory failure, acute renal failure and hypokalemia. Patient seen and examined laying in bed, patient stated he is ready to go home. Discussed disease process, discussed diuretics, fluid limitation and salt limitation. Discussed the patient to monitor weight and fluid buildup. Patient stated he do not have Dr. outside hospital. Discussed to follow-up with the community clinic. Patient complains of swelling everywhere and discomfort in the swelling area, Especially the legs.. Patient denies any headache or dizziness, denies any chest pain or shortness of breath, denies any abdominal pain, nausea, vomiting, diarrhea or constipation. Patient stated he is ready to go home and will follow up with outpatient clinic. Discussed discharge planning with the nurse and social science teacher DS: Diagnosis - Discharge Diagnosis (1) Ascites Status: Acute (2) Alcoholic hepatitis Status: Acute (3) Acute dyspnea Status: Acute (4) Coagulopathy Status: Acute DS: Medications - Discharge Medications Prescriptions: ciprofloxacin HCl [Cipro] 500 mg PO DAILY 30 Days #30 tab ciprofloxacin HCl 500 mg PO Q12HR 9 Days #18 tab furosemide 40 mg PO DAILY 30 Days #30 tab spironolactone [Aldactone] 50 mg PO DAILY 30 Days #30 tab DS: Summary Hospital Course: This is a 48-year-old male with a past medical history significant for alcohol abuse presents to the emergency department for the evaluation of abdominal swelling and shortness of breath. Patient was admitted for Ascites/jaundice, Likely secondary to liver failure from alcohol abuse. Workup showed Hepatitis profile negative, CT of the abdomen/pelvis with ascites. AFP 3.4. GI consult appreciated. Status post paracentesis 07/08/2018. GI following noted might need another paracentesis in the future. Patient was also worked up for Bacteremia with Suspected SBP. Klebsiella in one blood culture bottle. Lactic acid level 3.1. Status post IV Zosyn. Discussed with ID -Dr. Rios, and Dr. Loyola recommended to discontinue Zosyn and start on p.o. Cipro twice daily for 10 days then continue daily for SBP prophylaxis. Patient also was worked up for Severe anemia with pt reported blood in his urine, but that is likely s/t elevated bilirubin levels Status post blood transfusion, with hematology following, suggested bone marrow biopsy if anemia does not improve. Currently hemoglobin and hematocrit is 9.1/ 26.0 which was improved from admission of 7.3/22. Plan patient to discharge on diuretic and will follow to [facility] as an outpatient. Discussed the patient lifestyle modification,. Patient counseled on alcohol cessation. Discussed diet and exercise, fluid limitation, and medication compliance. - Time Spent with Patient Total time spent providing and/or coordinating discharge services: Less than 30 minutes - Quality: VTE Deep Vein Thrombosis/Pulmonary Embolism Present on Admission: No Exam Vital signs: Vital Signs 07/11/18 16:00 07/11/18 20:00 07/12/18 00:00 Temperature 98.5 F 98.1 F 98.0 F Pulse Rate 75 88 90 Respiratory Rate 18 16 18 Blood Pressure 112/53 L 108/59 L 118/58 L Pulse Oximetry 97 98 93 L 07/12/18 04:00 07/12/18 08:00 Temperature 98.4 F 98.1 F Pulse Rate 92 H 85 Respiratory Rate 17 18 Blood Pressure 121/59 L 116/74 Pulse Oximetry 93 L 91 L Intake & Output 07/11/18 07/12/18 07/12/18 18:59 06:59 18:59 Intake Total 830 / 830 600 / 600 Output Total 750 / 750 400 / 400 Balance 80 / 80 200 / 200 Weight 82 kg Intake: IV 350 / 350 Zosyn 4.5 GM Premix 4.5 gm In 100 / 100 100 ml @ 200 mls/hr IV.SIG Q6H NEY Rx#:[id number] Oral 480 / 480 600 / 600 Output: Urine 750 / 750 400 / 400 Other: Date of Last Bowel Movement 07/10/18 # Bowel Movements 1 Narrative: GENERAL: Well-developed, well-nourished jaundiced looking male in no apparent distress SKIN: Warm and dry. Jaundice HEAD: Atraumatic. Normocephalic. EYES: Pupils equal and round. No scleral icterus. No injection or drainage. ENT: No nasal bleeding or discharge. Mucous membranes pink and moist. NECK: Trachea midline. No JVD. CARDIOVASCULAR: Regular rate and rhythm. RESPIRATORY: No accessory muscle use. Clear to auscultation. Breath sounds equal bilaterally. GASTROINTESTINAL: Abdomen distended, non-tender, with no peritoneal signs MUSCULOSKELETAL: Extremities without clubbing, cyanosis,. Positive for ascites and lower extremity edema 2+ pitting, generalized edema from waist down to the foot NEUROLOGICAL: Awake and alert. No obvious cranial nerve deficits. Motor grossly within normal limits. Generalized weakness moving all 4 extremities. Normal speech. PSYCHIATRIC: Appropriate mood and affect; insight and judgment normal. Results Procedures completed during hospitalization: Paracentesis Labs on day of discharge: Labs from last 24 hours 07/12/18 07/12/18 07/12/18 08:25 08:25 08:25 WBC 6.9 RBC 2.68 L Hgb 9.1 L Hct 26.0 L MCV 97.1 MCH 33.8 MCHC 34.8 RDW 22.2 H Plt Count 80 L MPV 8.0 Prelim Diff (Auto) Slide review pending Neut % (Auto) 63.8 Lymph % (Auto) 18.7 [place] % (Auto) 14.0 H Eos % (Auto) 3.0 Baso % (Auto) 0.5 Neut # (Auto) 4.4 Lymph # (Auto) 1.3 [place] # (Auto) 1.0 H Eos # (Auto) 0.2 Baso # (Auto) 0.0 WBC Differential . Diff Scan Auto diff confirmed Differential Comment . Platelet Estimate Low L Platelet Morphology Normal Andrew Cells 1+ H Acanthocytes (Spur) 2+ H PT 20.7 H INR 2.0 Sodium 133 L Potassium 3.4 L Chloride 99 Carbon Dioxide 30.6 Anion Gap 3 L BUN 12 Creatinine 0.85 Estimated GFR Greater than 89 Random Glucose 99 Calcium 7.8 L 07/11/18 15:27 WBC 6.5 RBC 2.74 L Hgb 9.2 L Hct 26.3 L MCV 96.0 MCH 33.6 MCHC 35.1 RDW 21.5 H Plt Count 92 L MPV 7.8 Prelim Diff (Auto) Neut % (Auto) Lymph % (Auto) [place] % (Auto) Eos % (Auto) Baso % (Auto) Neut # (Auto) Lymph # (Auto) [place] # (Auto) Eos # (Auto) Baso # (Auto) WBC Differential Diff Scan Differential Comment Platelet Estimate Platelet Morphology [place] Cells Acanthocytes (Spur) PT INR Sodium Potassium Chloride Carbon Dioxide Anion Gap BUN Creatinine Estimated GFR Random Glucose Calcium - Impressions ITS Impressions Abdomen/Pelvis CT 07/06/18 20:14 CONCLUSION: 1. Large amount of abdominal ascites. 2. Splenomegaly. Paracentesis Ultrasound 07/08/18 00:00 CONCLUSION: 1. Uncomplicated paracentesis. Chest X-Ray 07/08/18 06:00 CONCLUSION: Bilateral mostly basilar airspace disease with small effusions. Findings similar to July 07. - Imaging and Cardiology Chest x-ray Status: image reviewed by me CT scan - abdomen Status: image reviewed by me CT scan - pelvis Status: image reviewed by me paracentesis Status: image reviewed by me Discharge Plan - Discharge Disposition Patient Disposition: Discharge Home - Discharge Order Discharge Orders: Discharge Order (Routine); Ordered 07/12/18 Ordered By: Lucretia Sal Adrian - Physicians Team Primary Care Provider: Primary Care Physici,No Attending Provider: Tony Loyola Other Providers: Vinnie Askew MD ; Chris Christie MD
[2018-07-12] MEDS ORDERED: Acetaminophen 325 MG Tablet PO PRN (14:41)
[2018-07-12] MEDS ORDERED: Morphine Inj 4 MG/ML Vial IV.PUSH PRN (14:43)
--- NOTE | 2018-07-12 15:53 | US ---
EXAM DATE: 07/12/2018 3:31 PM EST AGE/SEX: 48 years / Male INDICATIONS: Ascites. CLINICAL DATA: This is the patient's subsequent encounter. Patient reports that signs and symptoms h ave been present for 4 - 6 days and indicates a pain score of 2/10. MEDICAL/SURGICAL HISTORY: . Hypertension. Alcoholism/ alcohol abuse. Kidney capsule rupture. . Hand surgery. Knee surgery. COMPARISON: [facility] [place] W/IMAGE, 07/08/2018. . FINDINGS: Masses: None Fluid Collections: Small amount of ascites is noted within all 4 quadrants of the abdomen. Other: None. CONCLUSION: 1. Small amount of ascites within all 4 quadrants of the abdomen. Electronically signed by: Bo Payne MD 07/12/2018 3:52 PM EST
== END 2018-07-12 18:40 | disposition home or self-care (01) ==
LOC: NEPE 18:45 → NEDA 22:07 → INTOOBSV 22:07 → N04 07-07 02:00 → NEDA 07-07 02:24 → N03 07-07 15:48 → N04 07-09 18:35
PROVIDERS: ADMIT Hospitalist; ATTEND Hospitalist

== ENCOUNTER 2018-07-31 17:39 | Observation (INO) ==
[2018-07-31] MEDS ORDERED: Pantoprazole Inj 40 MG Vial IV.PUSH ONE (18:11)
--- NOTE | 2018-07-31 18:11 | ED ---
HPI General Chief Complaint: Abdominal Pain Stated Complaint: filled with fluid-trouble breathing Time Seen by Provider: 07/31/18 17:47 Source: patient and family Mode of arrival: ambulatory Limitations: no limitations History of Present Illness HPI narrative: Patient is a 48-year-old male presenting to emerge from for evaluation of shortness of breath and abdominal pain. Patient states is gotten worse over the last several days. He reports a history of cirrhosis. He states he has not had any alcohol in several months. He denies any chest pain, nausea, vomiting. He states that he has a hernia that is protruding into his scrotum. Pt reports 9/10 pain, diffuse, pressure like, constant, worsening. Pt states he was advised to follow up with [facility] however he cannot be seen until September. He states his abdomen is more swollen now than at his last admission. He denies any alcohol use. MD complaint: Reports abdominal pain (bloating) Pain Consistency: constant Location: Reports diffuse Severity: similar to previous episodes Severity scale (1-10): 9 Quality: Reports aching Radiation: Reports none Migration to: Reports no migration Relieving factors: nothing Context: Reports history of similar episodes Related Data Previous Rx's Medication Instructions Recorded ciprofloxacin HCl [Cipro] 500 mg PO DAILY 30 Days #30 tab 07/12/18 furosemide 40 mg PO DAILY 30 Days #30 tab 07/12/18 spironolactone [Aldactone] 50 mg PO DAILY 30 Days #30 tab 07/12/18 Allergies Allergy/AdvReac Type Severity Reaction Status Date / Time No Known Allergies Allergy Verified 07/31/18 17:45 Review of Systems ROS: all other systems reviewed are negative [facility] Medical History Medical History Cirrhosis of liver (Acute) Alcoholism /alcohol abuse (Acute) Hypertension (Acute) Kidney capsule rupture (Acute) Surgical History Surgical History History of hand surgery (Acute) History of knee surgery (Acute) Family History Family History Other Diabetes mellitus Social History Social History Substance History: No History of Abuse Second Hand Smoke Exposure: No Smoking Status: Former smoker Tobacco Type: Cigarettes How Often Do You Have a Drink Containing Alcohol: Never Recent Travel in [place] within the Last 8 Weeks: No Recent Out of Country Travel within the Last 8 Weeks: No Immunization History Tetanus Immunization: <5 Years Exam Narrative Exam Narrative: GENERAL: Well-developed, chronically ill-appearing male. Appears uncomfortable, in no acute distress. SKIN: Focused skin assessment warm/dry. Jaundiced HEAD: Atraumatic. Normocephalic. EYES: Pupils equal and round. Positive scleral icterus. No injection or drainage. ENT: No nasal bleeding or discharge. Mucous membranes pink and moist. NECK: Trachea midline. No JVD. CARDIOVASCULAR: Regular rate and rhythm. No murmur appreciated. RESPIRATORY: No accessory muscle use. Clear to auscultation. Breath sounds equal bilaterally. GASTROINTESTINAL: Abdomen firm, tender, distended. Hepatic and splenic margins not palpable. + bowel sounds MUSCULOSKELETAL: No obvious deformities. No clubbing. No cyanosis. 3+ edema to BLE. NEUROLOGICAL: Awake and alert. No obvious cranial nerve deficits. Motor grossly within normal limits. Normal speech. PSYCHIATRIC: Appropriate mood and affect; insight and judgment normal. Course Initial Documented Vital Signs Temperature 97.6 F 07/31/18 17:43 Pulse Rate 105 H 07/31/18 17:43 Respiratory Rate 24 07/31/18 17:43 Blood Pressure 139/79 07/31/18 17:43 Pulse Oximetry 94 L 07/31/18 17:43 Last Documented Vital Signs Temperature 97.6 F 07/31/18 17:43 Pulse Rate 91 H 07/31/18 21:17 Respiratory Rate 16 07/31/18 21:17 Blood Pressure 134/80 07/31/18 21:17 Pulse Oximetry 95 07/31/18 21:17 Medical Decision Making ELLIOT Attestation ELLIOT supervised visit: Yes Attestation: I, Dr. Mccarty, have reviewed the advance practice practitioner's documentation and am in agreement, met with the patient face to face, made the diagnosis, and the medical decision making was done by me. *My assessment and Findings: Patient is a 48-year-old male who presents the emergency room with complaints of alcoholic hepatitis with ascites. Patient reports that since he was discharged from the hospital, he did try to follow-up at the [facility] as he knew that he would need paracentesis in the future. Patient was told that he would not be able to be seen until September and that [facility] needs to stop sending patient to them MDM Narrative Medical decision making narrative: Patient is a 48-year-old male presenting to emerge department for evaluation of worsening ascites over the last several days. Patient has a history of liver failure, he has been unable to follow-up as outpatient. Patient is to, slightly hypoxic on arrival. Labs and imaging ordered and pending. Patient was placed on 2 L of O2 via nasal cannula. 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 Family is at bedside. Patient reports compliance with spironolactone and Lasix. CT scan the abdomen pelvis shows cirrhosis, large ascites. Splenomegaly with suspected scattered infarcts. Portosystemic collaterals, large hiatal hernia, left inguinal hernia, effusion with dependent consolidation in lungs. CBC with stable anemia, no leukocytosis, however seg neutrophils are elevated. Chemistry with no acute findings, stable when compared to prior. Lactic acid 3.2 Urinalysis is unremarkable Discussed with Dr. Marley who accepted admit. Orders placed. Medical Screen Exam Complete: Yes Emergency Medical Condition: Yes Medical Records Medical records reviewed: Yes I reviewed the patient's medical records. Lab Data Lab results reviewed: Yes I reviewed the patient's lab results. Result diagrams: 07/31/18 18:05 07/31/18 18:05 Lab Results 07/31/18 07/31/18 07/31/18 Range/Units 18:05 18:05 18:05 WBC 8.5 (4.0-11.0) th/mm3 RBC 2.66 L (4.50-5.90) mil/mm3 Hgb 9.6 L (13.0-17.0) gm/dL Hct 27.8 L (39.0-51.0) % MCV 104.6 H (80.0-100.0) fL MCH 36.3 H (27.0-34.0) pg MCHC 34.7 (32.0-36.0) % RDW 20.2 H (11.6-17.2) % Plt Count 143 L D (150-450) th/mm3 MPV 7.9 (7.0-11.0) fL Prelim Diff (Auto) Slide review pending Neut % (Auto) 63.0 (16.0-70.0) % Lymph % (Auto) 18.2 (9.0-44.0) % [place] % (Auto) 14.6 H (0.0-8.0) % Eos % (Auto) 3.0 (0.0-4.0) % Baso % (Auto) 1.2 (0.0-2.0) % Neut # (Auto) 5.4 (1.8-7.7) th/mm3 Lymph # (Auto) 1.6 (1.0-4.8) th/mm3 [place] # (Auto) 1.2 H (0.0-0.9) th/mm3 Eos # (Auto) 0.3 (0.0-0.4) th/mm3 Baso # (Auto) 0.1 (0.0-0.2) th/mm3 WBC Differential Manual diff final Seg Neuts % (Manual) 77 H (16-70) % Band Neuts % (Manual) 3 (0-6) % Lymphocytes % (Manual) 12 (9-44) % Monocytes % (Manual) 5 (0-8) % Eosinophils % (Manual) 3 (0-4) % Abs Neuts (Manual) 6.8 (1.8-7.7) th/mm3 Differential Comment . Platelet Estimate Low L (Normal) Platelet Morphology Normal (Normal) Acanthocytes (Spur) 2+ H (None) Keratocytes 1+ H (None) PT 17.4 H (9.8-11.6) sec INR 1.7 Ratio APTT 33.1 H (23.4-31.7) sec Sodium 138 (136-145) meq/L Potassium 4.1 (3.5-5.1) meq/L Chloride 106 (98-107) meq/L Carbon Dioxide 25.5 (21.0-32.0) meq/L Anion Gap 7 (5-15) meq/L BUN 15 (7-18) mg/dL Creatinine 0.93 (0.60-1.30) mg/dL Estimated GFR 87 L (>89) mL/min Random Glucose 114 H (74-106) mg/dL Lactic Acid (0.4-2.0) mmol/L Calcium 8.3 L (8.5-10.1) mg/dL Magnesium 1.7 (1.5-2.5) mg/dL Total Bilirubin 16.3 H (0.2-1.0) mg/dL AST 83 H (15-37) U/L ALT 63 (12-78) U/L Alkaline Phosphatase 206 H (45-117) U/L Ammonia (11-32) mcmol/L Total Protein 6.6 (6.4-8.2) g/dL Albumin 3.0 L (3.4-5.0) g/dL Lipase 430 H (73-393) U/L Urine Color (Yellw/Straw) Urine Clarity (Clear) Urine pH (5.0-8.5) Ur Specific [place] (1.002-1.035) Urine Protein (Neg-Trace) mg/dL Urine Glucose (UA) (Negative) mg/dL Urine Ketones (Negative) mg/dL Urine Occult Blood (Negative) Urine Nitrate (Negative) Urine Bilirubin (Negative) Urine Urobilinogen (Less than 2) mg/dL Ur Leukocyte Esterase (Negative) Urine RBC (0-3) /hpf Urine WBC (0-5) /hpf Ur Squamous Epith Cells (0-5) /hpf Hyaline Casts (0-3) /lpf Urine Mucus (Occasional) /lpf Micro UA Comment Ur Microscopic Review Urine Culture Comments Blood Type Antibody Screen 07/31/18 07/31/18 07/31/18 Range/Units 18:05 18:05 18:05 WBC (4.0-11.0) th/mm3 RBC (4.50-5.90) mil/mm3 Hgb (13.0-17.0) gm/dL Hct (39.0-51.0) % MCV (80.0-100.0) fL MCH (27.0-34.0) pg MCHC (32.0-36.0) % RDW (11.6-17.2) % Plt Count (150-450) th/mm3 MPV (7.0-11.0) fL Prelim Diff (Auto) Neut % (Auto) (16.0-70.0) % Lymph % (Auto) (9.0-44.0) % [place] % (Auto) (0.0-8.0) % Eos % (Auto) (0.0-4.0) % Baso % (Auto) (0.0-2.0) % Neut # (Auto) (1.8-7.7) th/mm3 Lymph # (Auto) (1.0-4.8) th/mm3 [place] # (Auto) (0.0-0.9) th/mm3 Eos # (Auto) (0.0-0.4) th/mm3 Baso # (Auto) (0.0-0.2) th/mm3 WBC Differential Seg Neuts % (Manual) (16-70) % Band Neuts % (Manual) (0-6) % Lymphocytes % (Manual) (9-44) % Monocytes % (Manual) (0-8) % Eosinophils % (Manual) (0-4) % Abs Neuts (Manual) (1.8-7.7) th/mm3 Differential Comment Platelet Estimate (Normal) Platelet Morphology (Normal) Acanthocytes (Spur) (None) Keratocytes (None) PT (9.8-11.6) sec INR Ratio APTT (23.4-31.7) sec Sodium (136-145) meq/L Potassium (3.5-5.1) meq/L Chloride (98-107) meq/L Carbon Dioxide (21.0-32.0) meq/L Anion Gap (5-15) meq/L BUN (7-18) mg/dL Creatinine (0.60-1.30) mg/dL Estimated GFR (>89) mL/min Random Glucose (74-106) mg/dL Lactic Acid 3.2 H (0.4-2.0) mmol/L Calcium (8.5-10.1) mg/dL Magnesium (1.5-2.5) mg/dL Total Bilirubin (0.2-1.0) mg/dL AST (15-37) U/L ALT (12-78) U/L Alkaline Phosphatase (45-117) U/L Ammonia 20 (11-32) mcmol/L Total Protein (6.4-8.2) g/dL Albumin (3.4-5.0) g/dL Lipase (73-393) U/L Urine Color (Yellw/Straw) Urine Clarity (Clear) Urine pH (5.0-8.5) Ur Specific [place] (1.002-1.035) Urine Protein (Neg-Trace) mg/dL Urine Glucose (UA) (Negative) mg/dL Urine Ketones (Negative) mg/dL Urine Occult Blood (Negative) Urine Nitrate (Negative) Urine Bilirubin (Negative) Urine Urobilinogen (Less than 2) mg/dL Ur Leukocyte Esterase (Negative) Urine RBC (0-3) /hpf Urine WBC (0-5) /hpf Ur Squamous Epith Cells (0-5) /hpf Hyaline Casts (0-3) /lpf Urine Mucus (Occasional) /lpf Micro UA Comment Ur Microscopic Review Urine Culture Comments Blood Type A Negative Antibody Screen Negative 07/31/18 Range/Units 19:19 WBC (4.0-11.0) th/mm3 RBC (4.50-5.90) mil/mm3 Hgb (13.0-17.0) gm/dL Hct (39.0-51.0) % MCV (80.0-100.0) fL MCH (27.0-34.0) pg MCHC (32.0-36.0) % RDW (11.6-17.2) % Plt Count (150-450) th/mm3 MPV (7.0-11.0) fL Prelim Diff (Auto) Neut % (Auto) (16.0-70.0) % Lymph % (Auto) (9.0-44.0) % [place] % (Auto) (0.0-8.0) % Eos % (Auto) (0.0-4.0) % Baso % (Auto) (0.0-2.0) % Neut # (Auto) (1.8-7.7) th/mm3 Lymph # (Auto) (1.0-4.8) th/mm3 [place] # (Auto) (0.0-0.9) th/mm3 Eos # (Auto) (0.0-0.4) th/mm3 Baso # (Auto) (0.0-0.2) th/mm3 WBC Differential Seg Neuts % (Manual) (16-70) % Band Neuts % (Manual) (0-6) % Lymphocytes % (Manual) (9-44) % Monocytes % (Manual) (0-8) % Eosinophils % (Manual) (0-4) % Abs Neuts (Manual) (1.8-7.7) th/mm3 Differential Comment Platelet Estimate (Normal) Platelet Morphology (Normal) Acanthocytes (Spur) (None) Keratocytes (None) PT (9.8-11.6) sec INR Ratio APTT (23.4-31.7) sec Sodium (136-145) meq/L Potassium (3.5-5.1) meq/L Chloride (98-107) meq/L Carbon Dioxide (21.0-32.0) meq/L Anion Gap (5-15) meq/L BUN (7-18) mg/dL Creatinine (0.60-1.30) mg/dL Estimated GFR (>89) mL/min Random Glucose (74-106) mg/dL Lactic Acid (0.4-2.0) mmol/L Calcium (8.5-10.1) mg/dL Magnesium (1.5-2.5) mg/dL Total Bilirubin (0.2-1.0) mg/dL AST (15-37) U/L ALT (12-78) U/L Alkaline Phosphatase (45-117) U/L Ammonia (11-32) mcmol/L Total Protein (6.4-8.2) g/dL Albumin (3.4-5.0) g/dL Lipase (73-393) U/L Urine Color [place] (Yellw/Straw) Urine Clarity Clear (Clear) Urine pH 6.0 (5.0-8.5) Ur Specific [place] 1.011 (1.002-1.035) Urine Protein Negative (Neg-Trace) mg/dL Urine Glucose (UA) Negative (Negative) mg/dL Urine Ketones Negative (Negative) mg/dL Urine Occult Blood Negative (Negative) Urine Nitrate Negative (Negative) Urine Bilirubin Negative (Negative) Urine Urobilinogen Less than 2 (Less than 2) mg/dL Ur Leukocyte Esterase Negative (Negative) Urine RBC Less than 1 (0-3) /hpf Urine WBC Less than 1 (0-5) /hpf Ur Squamous Epith Cells <1 (0-5) /hpf Hyaline Casts 6 (0-3) /lpf Urine Mucus Few H (Occasional) /lpf Micro UA Comment Culture not ind Ur Microscopic Review Not Reportable Urine Culture Comments Culture not ind Blood Type Antibody Screen Imaging Data Radiologist's impression: Abdomen/Pelvis CT 07/31/18 17:56 CONCLUSION: 1. Cirrhosis and large ascites. 2. Splenomegaly with suspected scattered infarcts. 3. Portosystemic collaterals include recanalized umbilical vein, splenorenal shunt and gastroesophageal varices. 4. Large hiatal hernia. 5. Left inguinal hernia containing fat and ascitic fluid. 6. Effusions and dependent consolidation of the visualized lung bases. Chest X-Ray 07/31/18 20:26 CONCLUSION: Consolidation and small to moderate effusions at each lung base. Discharge Plan Discharge Disposition Patient Disposition: ED Admit(ED Internal Use Only) Discharge Condition Condition: Stable Discharge Order Discharge Orders: ED Use Only Admit Order (Routine); Ordered 07/31/18 Ordered By: Yoselin Xie Discharge Details Diagnosis: Ascites, Acute dyspnea, Cirrhosis Physicians Team ED Provider: Yesenia Mccarty ED Midlevel Provider: Yoselin Xie Primary Care Provider: Primary Care Margo Simons Attending Provider: Philomena Marley Status ED Status: Admitted Observation Patient
[2018-07-31 18:41] LABS: Baso # (Auto) 0.1 th/mm3 (0.0-0.2); Baso % (Auto) 1.2 % (0.0-2.0); Eos # (Auto) 0.3 th/mm3 (0.0-0.4); Hematocrit 27.8 % (39.0-51.0); Hemoglobin 9.6 gm/dL (13.0-17.0); Lymph # (Auto) 1.6 th/mm3 (1.0-4.8); Lymph % (Auto) 18.2 % (9.0-44.0); Mean Corpuscular HGB Conc 34.7 % (32.0-36.0); Mean Corpuscular Hemoglobin 36.3 pg (27.0-34.0); Mean Corpuscular Volume 104.6 fL (80.0-100.0); Mean Platelet Volume 7.9 fL (7.0-11.0); Mono # (Auto) 1.2 th/mm3 (0.0-0.9); Mono % (Auto) 14.6 % (0.0-8.0); Neut # (Auto) 5.4 th/mm3 (1.8-7.7); Platelet Count 143 th/mm3 (150-450); Red Blood Count 2.66 mil/mm3 (4.50-5.90); Red Cell Distribution Width 20.2 % (11.6-17.2); White Blood Count 8.5 th/mm3 (4.0-11.0)
[2018-07-31] MEDS ORDERED: Morphine Inj 4 MG/ML Vial IV.PUSH ONE (18:42)
[2018-07-31 18:56] LABS: Activated Partial Thrombo Time 33.1 sec (23.4-31.7); Anion Gap 7 meq/L (5-15); Aspartate Aminotransferase 83 U/L (15-37); Blood Urea Nitrogen 15 mg/dL (7-18); Calcium 8.3 mg/dL (8.5-10.1); Carbon Dioxide 25.5 meq/L (21.0-32.0); Chloride 106 meq/L (98-107); Glomerular Filtration Rate 87 mL/min (>89); Glucose,Random 114 mg/dL (74-106); INR 1.7 Ratio; Lipase 430 U/L (73-393); Magnesium 1.7 mg/dL (1.5-2.5); Potassium 4.1 meq/L (3.5-5.1); Prothrombin Time 17.4 sec (9.8-11.6); Sodium 138 meq/L (136-145)
[2018-07-31 18:57] LABS: Alanine Aminotransferase 63 U/L (12-78)
[2018-07-31 18:59] LABS: Alkaline Phosphatase 206 U/L (45-117); Total Protein 6.6 g/dL (6.4-8.2)
[2018-07-31 19:25] LABS: Acanthocytes 2+; Eosinophils 3 % (0-4); Lymphocytes 12 % (9-44); Monocytes 5 % (0-8); Platelet Morphology Normal (Normal)
[2018-07-31 19:56] LABS: Bilirubin,Urine Negative (Negative); Clarity,Urine Clear (Clear); Color,Urine Amber (Yellw/Straw); Glucose,Urine (UA) Negative (Negative); Hyaline Casts,Urine 6 /lpf (0-3); Leukocyte Esterase,Urine Negative (Negative); Mucus,Urine Few /lpf (Occasional); Nitrite,Urine Negative (Negative); Specific Gravity,Urine 1.011 (1.002-1.035); Squamous Epithelial Cell,Urine <1 /hpf (0-5)
--- NOTE | 2018-07-31 19:58 | CT ---
EXAM DATE: 07/31/2018 7:50 PM EST AGE/SEX: 48 years / Male INDICATIONS: Ascites. CLINICAL DATA: This is the patient's initial encounter. Patient reports that signs and symptoms have been present for 1 day and indicates a pain score of 10/10. MEDICAL/SURGICAL HISTORY: Cirrhosis. Hypertension. Hepatitis. Kidney capsule rupture. EtOH . Knee surgery. ORAL CONTRAST: No oral contrast ingested. RADIATION DOSE: 12.88 CTDI (mGy) COMPARISON: [facility] [place] ABDOMEN & PELVIS W/O CONTRAST, 07/06/2018. . TECHNIQUE: Multiple contiguous axial images were obtained through the abdomen and pelvis following b olus infusion of 100 ml Omnipaque 350 (iohexol) nonionic water-soluble contrast as a single exam do se. No oral contrast ingested. Using automated exposure control and adjustment of the mA and/or kV a ccording to patient size, radiation dose was kept as low as reasonably achievable to obtain optimal d iagnostic quality images. DICOM format image data is available electronically for review and compari son. FINDINGS: Cirrhotic liver with a very large amount of ascites present. Spleen measures 17.1 cm craniocaudal and has multiple scattered areas of mostly peripheral decreased enhancement in the colon developing sple omid infarcts are in the differential. Splenic vein and portal vein are patent. There is a recanalized umbilical vein, splenorenal shunt and gastroesophageal varices. Pancreas, adrenal glands and kidneys are within normal limits. No obstruction or acute inflammatory changes are seen of the gastrointestinal tract. There is a left inguinal hernia containing fat and ascitic fluid. There is a large hiatal hernia. Moderate size pleural effusions and dependent consolidation seen of the visualized lung bases. CONCLUSION: 1. Cirrhosis and large ascites. 2. Splenomegaly with suspected scattered infarcts. 3. Portosystemic collaterals include recanalized umbilical vein, splenorenal shunt and gastroesophag eal varices. 4. Large hiatal hernia. 5. Left inguinal hernia containing fat and ascitic fluid. 6. Effusions and dependent consolidation of the visualized lung bases. Electronically signed by: Christiano Heredia MD Board Certified Radiologist 07/31/2018 7:56 PM EST
[2018-07-31] MEDS ORDERED: Vancomycin Inj 1,000 MG in Sodium Chlor 0.9% Inj 250 ML IV.SIG ONE (20:07)
[2018-07-31] MEDS ORDERED: Piperacil/Tazo 4.5 GM Premix 4.5 GM/100 ML BAG IV.SIG SCH (20:15)
[2018-07-31] MEDS ORDERED: Bisacodyl 10 MG Supp RECTAL PRN (20:36)
--- NOTE | 2018-07-31 20:39 | P.HPIM ---
History of Present Illness Primary Care Physician: No Primary Care Physician History of Present Illness: This is a 48-year-old male with a PMH of Alcohol Abuse, Cirrhosis and Recurrent Ascites who presented to the ER with complaints of worsening abdominal distention and SOB x3 days. Previous admit 07/06- for similar presentation, s/p paracentesis 07/08/18 w/ 10L removed, noted to have Klebsiella Bacteremia, s/p eval by ID and treated for possible SBP, d/c'd on Cipro 500mg qd for prophylaxis. Returns now w/ worsening distension. States unable to get into [facility] until September. Denies fever or chills. On arrival, BP 139/79, HR 105, O2 sat 94% on RA, Afebrile. Chemistry at baseline. Hemoglobin 9.6, previously 9.1 on 07-28. Platelets 143. INR 1.7. Chemistry essentially unremarkable. Lactic Acid 3.2. Lipase 430. UA negative for UTI. CXR with consolidation and small to moderate effusions bilaterally. CT Abdomen/ Pelvis cirrhosis and large ascites, splenomegaly with suspected scattered infarcts, gastric varices, large hiatal hernia, bilateral effusions. S/p Vanc/ Zosyn in ER for h/o bacteremia. Diagnosis (1) Cirrhosis: (2) Ascites: (3) Coagulopathy: Review of Systems PAST FAMILY HISTORY: Reviewed. No h/o DM or CAD Review of Systems: all other systems reviewed are negative [facility] Medical History Medical History Cirrhosis of liver (Acute) Alcoholism /alcohol abuse (Acute) Hypertension (Acute) Kidney capsule rupture (Acute) Surgical History Surgical History History of hand surgery (Acute) History of knee surgery (Acute) Family History Family History Other Diabetes mellitus Social History Social History Substance History: No History of Abuse Second Hand Smoke Exposure: No Smoking Status: Former smoker Tobacco Type: Cigarettes How Often Do You Have a Drink Containing Alcohol: Never Recent Travel in [facility] within the Last 8 Weeks: No Recent Out of Country Travel within the Last 8 Weeks: No Immunization History Tetanus Immunization: <5 Years Medications and Allergies Allergies Allergy/AdvReac Type Severity Reaction Status Date / Time No Known Allergies Allergy Verified 07/31/18 17:45 Active Medications: Active Medications Vancomycin HCl 1,000 mg/ (Sodium Chloride) 250 mls @ 250 mls/hr IV.SIG ONCE ONE Stop: 07/31/18 21:06 Piperacillin/Tazobactam/Dextrose (Zosyn 4.5 Gm Premix) 4.5 gm in 100 mls @ 200 mls/hr IV.SIG ONCE NEY Sodium Chloride (Ns Flush) 2 ml IV.FLUSH PRN PRN PRN Reason: FLUSH AFTER USING IV ACCESS Physical Exam Vital signs: Last Vital Signs Temp 97.6 F 07/31/18 17:43 Pulse 95 H 07/31/18 19:13 Resp 26 H 07/31/18 17:51 BP 157/104 H 07/31/18 17:51 Pulse Ox 95 07/31/18 19:13 Intake & Output 07/29/18 07/30/18 07/31/18 08/01/18 06:59 06:59 06:59 06:59 Weight 86.183 kg Narrative: PE: GENERAL: Pleasant middle-aged male in no acute distress. SKIN: Focused skin assessment warm and dry. HEENT: PERRLA, EOMI. No scleral icterus or conjunctival pallor. No lid lag or facial droop. CARDIOVASCULAR: Regular rate and rhythm. No obvious murmurs to auscultation. No chest tenderness to palpation. RESPIRATORY: No obvious rhonchi or wheezing. Clear to auscultation. Breath sounds equal bilaterally. GASTROINTESTINAL: Abdomen distended, firm, generalized tenderness. BS normal. MUSCULOSKELETAL: Extremities without clubbing, cyanosis, +2 edema. No obvious deformities. NEUROLOGICAL: Awake, alert and oriented x4. No focal neurologic deficits. Moving both upper and lower extremities spontaneously. PSYCHIATRIC: Appropriate mood and affect. Insight and judgment normal. Results Labs CBC & Chem 7: 07/31/18 18:05 07/31/18 18:05 Imaging Impressions Abdomen/Pelvis CT 07/31/18 17:56 CONCLUSION: 1. Cirrhosis and large ascites. 2. Splenomegaly with suspected scattered infarcts. 3. Portosystemic collaterals include recanalized umbilical vein, splenorenal shunt and gastroesophageal varices. 4. Large hiatal hernia. 5. Left inguinal hernia containing fat and ascitic fluid. 6. Effusions and dependent consolidation of the visualized lung bases. Caprini VTE Risk Assessment Caprini VTE Risk Assessment: No/Low Risk (score <= 1) VTE Pharmacological Exception Reason: Coagulopathy,INR elevated Caprini Risk Assessment Model: Point Value = 1 Point Value = 2 Point Value = 3 Point Value = 5 Age 41-60 Minor surgery BMI > 25 kg/m2 Swollen legs Varicose veins or History of unexplained or recurrent spontaneous Oral contraceptives or hormone replacement Sepsis (< 1 month) Serious lung disease, including pneumonia (< 1 month) Abnormal pulmonary function Acute myocardial infarction Congestive heart failure (< 1 month) History of inflammatory bowel disease Medical patient at bed rest Age 61-74 Arthroscopic surgery Major open surgery (> 45 min) Laparoscopic surgery (> 45 min) Malignancy Confined to bed (> 72 hours) Immobilizing plaster cast Central venous access Age >= 75 History of VTE Family history of VTE Factor V Leiden Prothrombin [id number] Lupus anticoagulant Anticardiolipin antibodies Elevated serum homocysteine Heparin-induced thrombocytopenia Other congenital or acquired thrombophilia Stroke (< 1 month) Elective arthroplasty Hip, pelvis, or leg fracture Acute spinal cord injury (< 1 month) Prophylaxis Regimen: Total Risk Factor Score Risk Level Prophylaxis Regimen 0-1 Low Early ambulation 2 Moderate Order ONE of the following: *Sequential Compression Device (SCD) *Heparin 5000 units SQ BID 3-4 Higher Order ONE of the following medications: *Heparin 5000 units SQ TID *Enoxaparin/Lovenox 40 mg SQ daily (WT < 150 kg, CrCl > 30 mL/min) *Enoxaparin/Lovenox 30 mg SQ daily (WT < 150 kg, CrCl > 10-29 mL/min) *Enoxaparin/Lovenox 30 mg SQ BID (WT < 150 kg, CrCl > 30 mL/min) AND/OR *Sequential Compression Device (SCD) 5 or more Highest Order ONE of the following medications: *Heparin 5000 units SQ TID (Preferred with Epidurals) *Enoxaparin/Lovenox 40 mg SQ daily (WT < 150 kg, CrCl > 30 mL/min) *Enoxaparin/Lovenox 30 mg SQ daily (WT < 150 kg, CrCl > 10-29 mL/min) *Enoxaparin/Lovenox 30 mg SQ BID (WT < 150 kg, CrCl > 30 mL/min) AND *Sequential Compression Device (SCD) Assessment and Plan (1) Cirrhosis: Code(s): K74.60 - Unspecified cirrhosis of liver Status: Acute (2) Ascites: Code(s): R18.8 - Other ascites Status: Acute (3) Coagulopathy: Code(s): D68.9 - Coagulation defect, unspecified Status: Acute Plan A/P: 1. Cirrhosis: Chronic, secondary to h/o Alcohol Abuse, states quit approx 4 months ago, continue Lasix/Aldactone, start Propranolol bid. Monitor I/O. 2. Ascites: Recurrent. Recent admit for same, s/p paracentesis w/ removal 10L 07/08/18, treated empirically for SBP at that time, d/c'd on Cipro 500mg qd for prophylaxis, will continue w/ Cipro PO, afebrile, no leukocytosis, consult IR for paracentesis-send fluid for culture/gram stain, will hold off on additional IV antibiotics at this time. 3. Coagulopathy: Secondary to above, INR 1.7, no active bleeding at this time , will monitor closely. Repeat INR in am. 4. DVT Prophylaxis: Pharmacologic contraindication in light of coagulopathy/ liver failure 5. Social work for d/c planning as needed. 6. Case discussed w/ ER physician at length, labs/records/imaging reviewed by me
--- NOTE | 2018-07-31 21:26 | XR ---
EXAM DATE: 07/31/2018 9:22 PM EST AGE/SEX: 48 years / Male INDICATIONS: Shortness of breath. CLINICAL DATA: This is the patient's initial encounter. Patient reports that signs and symptoms have been present for 3 days and indicates a pain score of 0/10. MEDICAL/SURGICAL HISTORY: . Cirrhosis. Hypertension. Hepatitis. Kidney capsule rupture. Knee valerio rgery. . COMPARISON: [facility] – [place], CHEST 1V SINGLE AP, 07/08/2018. . FINDINGS: Lung volumes are small. There are small to moderate effusions and basilar predominant bilateral conso lidation. No pneumothorax. Heart size stable, within normal limits. CONCLUSION: Consolidation and small to moderate effusions at each lung base. Electronically signed by: Christiano Heredia MD Board Certified Radiologist 07/31/2018 9:24 PM EST
[2018-07-31] MEDS: Senna/Docusate Sodium 8.6/50 MG Tablet PO SCH (22:41)
[2018-07-31] MEDS: Propranolol 10 MG Tablet PO SCH (22:41)
[2018-08-01 05:43] LABS: Baso # (Auto) 0.2 th/mm3 (0.0-0.2); Baso % (Auto) 1.9 % (0.0-2.0); Eos # (Auto) 0.3 th/mm3 (0.0-0.4); Eos % (Auto) 3.1 % (0.0-4.0); Hematocrit 23.5 % (39.0-51.0); Hemoglobin 8.4 gm/dL (13.0-17.0); Lymph # (Auto) 1.6 th/mm3 (1.0-4.8); Lymph % (Auto) 19.1 % (9.0-44.0); Mean Corpuscular HGB Conc 35.7 % (32.0-36.0); Mean Corpuscular Volume 103.7 fL (80.0-100.0); Mean Platelet Volume 7.6 fL (7.0-11.0); Mono # (Auto) 1.2 th/mm3 (0.0-0.9); Mono % (Auto) 14.2 % (0.0-8.0); Neut # (Auto) 5.2 th/mm3 (1.8-7.7); Neut % (Auto) 61.7 % (16.0-70.0); Platelet Count 118 th/mm3 (150-450); Red Blood Count 2.27 mil/mm3 (4.50-5.90); Red Cell Distribution Width 19.7 % (11.6-17.2); White Blood Count 8.4 th/mm3 (4.0-11.0)
[2018-08-01 05:59] LABS: Prothrombin Time 19.9 sec (9.8-11.6)
[2018-08-01 06:13] LABS: Acanthocytes 2+; Platelet Morphology Normal (Normal)
[2018-08-01 06:15] LABS: Alanine Aminotransferase 48 U/L (12-78); Albumin 2.3 g/dL (3.4-5.0); Alkaline Phosphatase 161 U/L (45-117); Anion Gap 6 meq/L (5-15); Aspartate Aminotransferase 62 U/L (15-37); Blood Urea Nitrogen 16 mg/dL (7-18); Calcium 7.8 mg/dL (8.5-10.1); Carbon Dioxide 27.8 meq/L (21.0-32.0); Chloride 107 meq/L (98-107); Glomerular Filtration Rate Greater Than 89 mL/min (>89); Glucose,Random 92 mg/dL (74-106); Potassium 4.3 meq/L (3.5-5.1); Sodium 141 meq/L (136-145); Total Protein 5.3 g/dL (6.4-8.2)
[2018-08-01] MEDS: Propranolol 10 MG Tablet PO SCH ×2 (08:50→20:31)
[2018-08-01] MEDS: Senna/Docusate Sodium 8.6/50 MG Tablet PO SCH ×2 (08:50→20:57)
[2018-08-01] MEDS ORDERED: Furosemide 40 MG Tablet PO SCH (09:00)
[2018-08-01] MEDS ORDERED: Ciprofloxacin 250 MG Tablet PO SCH (09:00)
[2018-08-01] MEDS: Ciprofloxacin 500 MG Tablet PO SCH (09:05)
[2018-08-01] MEDS: Spironolactone 25 MG Tablet PO SCH (09:11)
[2018-08-01] MEDS: Morphine Sulfate Inj 2 MG/ML Vial IV.PUSH PRN ×3 (10:27→19:51)
[2018-08-01] MEDS ORDERED: Albumin Human 25% Inj 250 ML IV.SIG ONE (14:22)
[2018-08-01 14:34] LABS: Total Protein,Peritoneal Fluid 0.7 gm/dL
--- NOTE | 2018-08-01 15:08 | P.PNIM ---
Subjective Interval history: 48-year-old gentleman with cirrhosis presented with severe ascites and abdominal pain, scheduled for paracentesis today Patient seen and examined, earlier today, states still having severe abdominal pain diffuse due to distention, no fever or chills has had worsening lower 70 edema he states he was not urinating even though he was taking the alpha Aldactone and Lasix he states he has not drank alcohol for several months Physical Exam Vital signs: Last Vital Signs Temp 97.2 F L 08/01/18 14:29 Pulse 70 08/01/18 14:29 Resp 18 08/01/18 14:29 BP 97/56 L 08/01/18 14:29 Pulse Ox 90 L 08/01/18 14:29 Intake & Output 07/30/18 07/31/18 08/01/18 08/02/18 06:59 06:59 06:59 06:59 Intake Total 250 / 250 Balance 250 / 250 Weight 86.183 kg Pleasant well-developed well-nourished 48-year-old white male Awake alert oriented no acute distress Heart S1-S2 regular Lungs diminished breath sounds no wheeze no rhonchi Abdomen markedly fluid distention moderate tenderness no guarding or rebound positive bowel sounds Extremities +2 - 3 pitting edema bilateral Results Labs CBC & Chem 7: 08/01/18 05:13 08/01/18 05:13 Labs: Microbiology 07/31/18 20:05 Blood - Peripheral Aerobic Blood Culture - Preliminary No growth in 1 day 07/31/18 20:05 Blood - Peripheral Anaerobic Blood Culture - Preliminary No growth in 1 day 07/31/18 20:00 Blood - Peripheral Aerobic Blood Culture - Preliminary No growth in 1 day 07/31/18 20:00 Blood - Peripheral Anaerobic Blood Culture - Preliminary No growth in 1 day Imaging Imaging: Impressions Abdomen/Pelvis CT 07/31/18 17:56 CONCLUSION: 1. Cirrhosis and large ascites. 2. Splenomegaly with suspected scattered infarcts. 3. Portosystemic collaterals include recanalized umbilical vein, splenorenal shunt and gastroesophageal varices. 4. Large hiatal hernia. 5. Left inguinal hernia containing fat and ascitic fluid. 6. Effusions and dependent consolidation of the visualized lung bases. Chest X-Ray 07/31/18 20:26 CONCLUSION: Consolidation and small to moderate effusions at each lung base. Assessment and Plan (1) Cirrhosis: Code(s): K74.60 - Unspecified cirrhosis of liver Status: Acute (2) Ascites: Code(s): R18.8 - Other ascites Status: Acute (3) Coagulopathy: Code(s): D68.9 - Coagulation defect, unspecified Status: Acute Plan DECOMPENSATED ALCOHOLIC CIRRHOSIS with intractable ascites for large volume paracentesis today, resume IV diuresis continue Aldactone, fluid and sodium restriction ACUTE HYPOXIC RESPIRATORY FAILUREhypoxic on admission, likely due to abdominal distention and decompensated cirrhosis with volume overload, pleural effusions noted on CT abdomen pelvis, with dependent consolidation, likely atelectasis, continue incentive spirometry, IV diuresis. Supplemental oxygen as needed to keep sats above 92%. MACROCYTIC ANEMIAchronic, no evidence of bleeding LACTIC ACIDEMIA related to hypoxia and decompensated cirrhosis, no evidence of acute infection CHRONIC ALCOHOLISM history, states he is sober for several months,. Monitor for DTs currently no evidence of withdrawal. MODERATE PROTEIN MALNUTRITIONalbumin 2.3 due to cirrhosis, nutritional consult COAGULOPATHYrelated to cirrhosis, INR 1.7, no acute bleeding DVT prophylaxisSCDs, INR 1.7 hold anticoagulation Dispositiondischarge home after paracentesis and effective diuresis, anticipate 1-2 days, pending clinical course. Progress Note: Quality VTE Deep Vein Thrombosis/Pulmonary Embolism Present on Admission: Yes
[2018-08-01 15:10] LABS: Mesothelial,Peritoneal Fluid 9 %; Neutrophils,Peritoneal Fluid 10 %; RBC,Peritoneal Fluid 444 /mm3 (0-0)
--- NOTE | 2018-08-01 16:47 | US ---
EXAM DATE: 08/01/2018 2:16 PM EST AGE/SEX: 48 years / Male INDICATIONS: Ascites. CLINICAL DATA: This is the patient's subsequent encounter. Patient reports that signs and symptoms h ave been present for 3 weeks and indicates a pain score of 2/10. MEDICAL/SURGICAL HISTORY: Cirrhosis. Hypertension. Kidney capsule rupture. ETOH abuse. . Hand surgery. Kidney surgery. COMPARISON: . FLUID: Total volume of 11,200 cc of clear, yellow fluid was removed. Fluid was sent to lab for ordered stud ies. . . TECHNIQUE: Ultrasound guidance for abdominal paracentesis. Paracentesis. The risks, benefits, and alternatives to ultrasound guided paracentesis were explained to the patient in detail including the risk of bleeding and infection. Written and verbal informed consent was obt ained. With the patient on the ultrasound table, ultrasound imaging was used to select the most appropriate approach for paracentesis. Overlying skin was prepped and draped in the usual sterile fashion and wi th a local anesthetic, a dermatotomy was made with an 11 blade scalpel. A 6 [place] [id number] ca theter was introduced into the peritoneal cavity and fluid was collected. Post procedure scanning reveals no hematoma or other complication. The patient tolerated the procedu re well and left the ultrasound suite in stable condition. FINDINGS: Adequate fluid for paracentesis. CONCLUSION: 1. Uncomplicated paracentesis. Electronically signed by: Jose Shine MD Board Certified Radiologist 08/01/2018 4:46 PM [facility]
--- NOTE | 2018-08-02 01:10 | ECG ---
Date Performed: 07/31/2018 Time Performed: 18:13:33 PTAGE: 48 years EKG: SINUS TACHYCARDIA WITH SHORT ID INTERVAL ABNORMAL RHYTHM ECG INTERPRETATION BASED ON A DEFA ULT AGE OF 41 YEARS PREVIOUS TRACING : 09/30/2009 02.02 Since the previous tracing, no significant change not ed DOCTOR: Lambert Pedersen Interpretating Date/Time 08/02/2018 01:10:17
[2018-08-02 06:14] LABS: Prothrombin Time 20.2 sec (9.8-11.6)
[2018-08-02 06:21] LABS: Baso # (Auto) 0.1 th/mm3 (0.0-0.2); Baso % (Auto) 1.1 % (0.0-2.0); Eos # (Auto) 0.4 th/mm3 (0.0-0.4); Eos % (Auto) 4.9 % (0.0-4.0); Hematocrit 21.8 % (39.0-51.0); Hemoglobin 7.7 gm/dL (13.0-17.0); Lymph # (Auto) 1.8 th/mm3 (1.0-4.8); Lymph % (Auto) 22.7 % (9.0-44.0); Mean Corpuscular HGB Conc 35.5 % (32.0-36.0); Mean Corpuscular Hemoglobin 36.8 pg (27.0-34.0); Mean Corpuscular Volume 103.7 fL (80.0-100.0); Mean Platelet Volume 7.5 fL (7.0-11.0); Mono # (Auto) 1.2 th/mm3 (0.0-0.9); Mono % (Auto) 15.6 % (0.0-8.0); Neut # (Auto) 4.3 th/mm3 (1.8-7.7); Neut % (Auto) 55.7 % (16.0-70.0); Platelet Count 109 th/mm3 (150-450); Red Cell Distribution Width 19.1 % (11.6-17.2); White Blood Count 7.8 th/mm3 (4.0-11.0)
[2018-08-02 06:26] LABS: Alanine Aminotransferase 37 U/L (12-78); Albumin 2.4 g/dL (3.4-5.0); Anion Gap 7 meq/L (5-15); Aspartate Aminotransferase 48 U/L (15-37); Blood Urea Nitrogen 19 mg/dL (7-18); Calcium 7.5 mg/dL (8.5-10.1); Carbon Dioxide 27.5 meq/L (21.0-32.0); Chloride 106 meq/L (98-107); Glomerular Filtration Rate 83 mL/min (>89); Glucose,Random 94 mg/dL (74-106); Magnesium 1.6 mg/dL (1.5-2.5); Sodium 140 meq/L (136-145)
[2018-08-02 06:32] LABS: Alkaline Phosphatase 138 U/L (45-117); Total Protein 4.8 g/dL (6.4-8.2)
[2018-08-02 07:02] LABS: Acanthocytes 2+; Platelet Morphology Normal (Normal)
[2018-08-02] MEDS: Senna/Docusate Sodium 8.6/50 MG Tablet PO SCH ×2 (09:05→21:02)
[2018-08-02] MEDS: Spironolactone 25 MG Tablet PO SCH (09:06)
[2018-08-02] MEDS: Ciprofloxacin 500 MG Tablet PO SCH (09:06)
[2018-08-02] MEDS: Propranolol 10 MG Tablet PO SCH ×2 (09:07→21:02)
[2018-08-02] MEDS: Morphine Sulfate Inj 2 MG/ML Vial IV.PUSH PRN ×3 (09:07→23:13)
[2018-08-02] MEDS: Albumin Human 25% Inj 50 ML IV.SIG SCH ×2 (11:31→21:09)
--- NOTE | 2018-08-02 11:52 | P.PNIM ---
Subjective Interval history: 48-year-old alcoholic cirrhotic admitted with intractable ascites decompensated cirrhosis status post large volume paracentesis yesterday with 11 L removed, Patient seen and evaluated, doing okay today, complaining of pain in his legs, edema is improved, shortness of breath is improved, abdominal distention is improved, still feels sore all over, Physical Exam Vital signs: Last Vital Signs Temp 98.5 F 08/02/18 08:00 Pulse 79 08/02/18 08:00 Resp 16 08/02/18 08:00 BP 100/52 L 08/02/18 08:00 Pulse Ox 88 L 08/02/18 08:00 Intake & Output 07/31/18 08/01/18 08/02/18 08/03/18 06:59 06:59 06:59 06:59 Intake Total 250 / 250 570 / 570 Balance 250 / 250 570 / 570 Weight 86.183 kg 86 kg Jaundiced 48-year-old white male Awake alert oriented no acute distress Heart S1-S2 regular Lungs clear bilateral trace rales at bases improved Abdomen marked distention much improved, soft nontender positive bowel sounds Extremities +3 pitting edema is improved to +2 Results Labs CBC & Chem 7: 08/02/18 05:09 08/02/18 05:09 Labs: Microbiology 07/31/18 20:05 Blood - Peripheral Aerobic Blood Culture - Preliminary No growth in 2 days 07/31/18 20:05 Blood - Peripheral Anaerobic Blood Culture - Preliminary No growth in 2 days 07/31/18 20:00 Blood - Peripheral Aerobic Blood Culture - Preliminary No growth in 2 days 07/31/18 20:00 Blood - Peripheral Anaerobic Blood Culture - Preliminary No growth in 2 days Imaging Imaging: Impressions Paracentesis Ultrasound 08/01/18 00:00 CONCLUSION: 1. Uncomplicated paracentesis. Assessment and Plan (1) Cirrhosis: Code(s): K74.60 - Unspecified cirrhosis of liver Status: Acute (2) Ascites: Code(s): R18.8 - Other ascites Status: Acute (3) Coagulopathy: Code(s): D68.9 - Coagulation defect, unspecified Status: Acute Plan DECOMPENSATED ALCOHOLIC CIRRHOSIS with intractable ascites s/p large volume paracentesis 08/01/18, resume IV diuresis continue Aldactone, fluid and sodium restriction ACUTE HYPOXIC RESPIRATORY FAILUREhypoxic on admission, likely due to abdominal distention and decompensated cirrhosis with volume overload, pleural effusions noted on CT abdomen pelvis, with dependent consolidation, likely atelectasis, continue incentive spirometry, IV diuresis. Supplemental oxygen as needed to keep sats above 92%. increase oob to chair as tolerated ambulate. MACROCYTIC ANEMIAchronic, no evidence of bleeding w acute drop in hh, cont ppi , monitor hh, transfuse if hgb <7.1 LACTIC ACIDEMIA related to hypoxia and decompensated cirrhosis, no evidence of acute infection, stable CHRONIC ALCOHOLISM history, states he is sober for several months,. Monitor for DTs currently no evidence of withdrawal. Stable MODERATE PROTEIN MALNUTRITIONalbumin 2.3 due to cirrhosis, nutritional consult COAGULOPATHYrelated to cirrhosis, INR 1.7, no acute bleeding DVT prophylaxisSCDs, INR 1.7 hold anticoagulation Dispositiondischarge home after paracentesis and effective diuresis, anticipate 1-2 more days. Increase out of bed, changed to oral Lasix tomorrow. Progress Note: Quality VTE Deep Vein Thrombosis/Pulmonary Embolism Present on Admission: Yes
[2018-08-02] MEDS: Magnesium Oxide 400 MG Tablet PO SCH (16:13)
[2018-08-03 05:32] LABS: Anion Gap 6 meq/L (5-15); Blood Urea Nitrogen 19 mg/dL (7-18); Calcium 7.9 mg/dL (8.5-10.1); Carbon Dioxide 27.9 meq/L (21.0-32.0); Chloride 107 meq/L (98-107); Glomerular Filtration Rate Greater Than 89 mL/min (>89); Glucose,Random 97 mg/dL (74-106); Potassium 4.4 meq/L (3.5-5.1); Sodium 141 meq/L (136-145)
[2018-08-03] MEDS: Morphine Sulfate Inj 2 MG/ML Vial IV.PUSH PRN ×3 (07:36→22:18)
--- NOTE | 2018-08-03 07:49 | P.PN ---
Subjective Interval history: Follow-up for cirrhosis, ascites, hypoxia, shortness of breath. Patient reports feeling better today, however still very weak and does not feel ready for discharge. He states he has continued diffuse lower abdominal pain, described as feeling sore, however improving. He denies any nausea or vomiting. He is tolerating oral intake. Denies any fevers or chills. He reports his breathing continues to improve, only short of breath upon exertion. Denies any chest pain. Denies any other medical complaints at this time. He feels he will be ready for discharge tomorrow. Physical Exam Vital signs: Vital Signs 08/02/18 08:00 08/02/18 12:00 08/02/18 15:20 Temperature 98.5 F 97.8 F 98.1 F Pulse Rate 79 79 81 Respiratory Rate 16 16 16 Blood Pressure 100/52 L 97/54 L 97/53 L Pulse Oximetry 88 L 80 L 90 L 08/02/18 21:01 08/02/18 21:20 08/02/18 23:09 Temperature Pulse Rate 75 83 Respiratory Rate 18 Blood Pressure 95/55 L 103/53 L Pulse Oximetry 95 08/03/18 04:00 Temperature 97.6 F Pulse Rate 86 Respiratory Rate 18 Blood Pressure 103/56 L Pulse Oximetry 94 L Intake & Output 08/02/18 08/03/18 08/03/18 18:59 06:59 18:59 Intake Total 50 / 50 50 / 50 Output Total 325 / 325 Balance -275 / -275 50 / 50 Intake: IV 50 / 50 50 / 50 Flexbumin 25% Inj 50 ML @ 60 50 / 50 50 / 50 mls/hr IV.SIG Q12H [facility] Rx#: [id number] Output: Urine 325 / 325 Other: Date of Last Bowel Movement 08/01/18 08/01/18 Narrative: GENERAL: Well-nourished, well-developed patient in [place]. SKIN: Warm and dry. No rash. HEENT: Normocephalic. Atraumatic. Pupils equal and round. Mucous membranes pink and moist. CARDIOVASCULAR: Regular rate and rhythm. No murmur appreciated. RESPIRATORY: No accessory muscle use. Clear to auscultation. Breath sounds equal bilaterally. GASTROINTESTINAL: Abdomen soft, non-tender, mildly distended, improved. Normoactive bowel sounds x4. MUSCULOSKELETAL: No obvious deformities. 1+ bilateral lower extremity edema. NEUROLOGICAL: Awake and alert. No obvious cranial nerve deficits. Motor grossly within normal limits. Moving all extremities spontaneously. Normal speech. PSYCHIATRIC: Appropriate mood and affect; insight and judgment normal. Results - Labs CBC & Chem 7: 08/02/18 05:09 08/03/18 04:41 Laboratory Results - last 24 hr 08/03/18 04:41 Sodium 141 Potassium 4.4 Chloride 107 Carbon Dioxide 27.9 Anion Gap 6 BUN 19 H Creatinine 0.90 Estimated GFR Greater than 89 Random Glucose 97 Calcium 7.9 L Microbiology 07/31/18 20:05 Blood - Peripheral Aerobic Blood Culture - Preliminary No growth in 2 days 07/31/18 20:05 Blood - Peripheral Anaerobic Blood Culture - Preliminary No growth in 2 days 07/31/18 20:00 Blood - Peripheral Aerobic Blood Culture - Preliminary No growth in 2 days 07/31/18 20:00 Blood - Peripheral Anaerobic Blood Culture - Preliminary No growth in 2 days - Imaging Abdomen/Pelvis CT 07/31/18 17:56 CONCLUSION: 1. Cirrhosis and large ascites. 2. Splenomegaly with suspected scattered infarcts. 3. Portosystemic collaterals include recanalized umbilical vein, splenorenal shunt and gastroesophageal varices. 4. Large hiatal hernia. 5. Left inguinal hernia containing fat and ascitic fluid. 6. Effusions and dependent consolidation of the visualized lung bases. Chest X-Ray 07/31/18 20:26 CONCLUSION: Consolidation and small to moderate effusions at each lung base. Paracentesis Ultrasound 08/01/18 00:00 CONCLUSION: 1. Uncomplicated paracentesis. - Procedures 08/01/18ultrasound-guided paracentesis, removed 11,200 cc of clear yellow fluid , sent for studies Assessment and Plan - Assessment (1) Cirrhosis Code(s): K74.60 - Unspecified cirrhosis of liver Status: Acute (2) Ascites Code(s): R18.8 - Other ascites Status: Acute (3) Coagulopathy Code(s): D68.9 - Coagulation defect, unspecified Status: Acute - Plan 48-year-old male with a PMH of Alcohol Abuse, Cirrhosis and Recurrent Ascites who presented to the ER with complaints of worsening abdominal distention and SOB x3 days. Previous admit 07/06-07/12/18 for similar presentation, s/p paracentesis 07/08/18 w/ 10L removed, noted to have Klebsiella Bacteremia, s/p eval by ID and treated for possible SBP, d/c'd on Cipro 500mg qd for prophylaxis. Returns now w/ worsening distension. Cirrhosis with Acute Ascites: Acute on Chronic, secondary to h/o Alcohol Abuse , states quit alcohol approx 4 months ago. -continue Lasix/Aldactone, started Propranolol bid. -Monitor I/O. -08/01 - s/p U/S guided paracentesis, removed 11,200cc -Giving IV albumin per protocol -peritoneal fluid sent for culture, pending -Continue patient's prophylactic cipro 500mg daily, started on previous admission -will hold off on any additional IV antibiotics unless culture positive -symptoms much improved after paracentesis, tolerating oral intake, needs to f/up as outpatient Acute hypoxic respiratory failure: hypoxic on admission, likely due to abdominal distention and decompensated cirrhosis with volume overload -CT abd/pelvis showing pleural effusions with dependent consolidation, likely atelectasis -continue incentive spirometry -Continue diuresis with lasix 40mg daily. -Patient now weaned off oxygen, stable on room air -Encourage ambulation Coagulopathy: Secondary to liver disease, INR 1.7, no active bleeding at this time -Repeat INR 2.0 -monitor closely. Macrocytic anemia: Chronic, suspect secondary to liver disease in alcohol abuse ; no evidence of active bleeding -Monitor H&H, hemoglobin 9.6 --> 8.4 --> 7.7 -Continue PPI -Plan to transfuse if hemoglobin drops less than 7 DVT Prophylaxis: Pharmacologic contraindication in light of coagulopathy/liver failure Discharge Planning: Patient continuing diuresis for ascites and dyspnea/pleural effusions, also awaiting peritoneal fluid culture results. Patient would like to be discharged on 08/04 if stable.
[2018-08-03] MEDS: Furosemide 40 MG Tablet PO SCH (08:31)
[2018-08-03] MEDS: Senna/Docusate Sodium 8.6/50 MG Tablet PO SCH ×2 (08:32→20:31)
[2018-08-03] MEDS: Magnesium Oxide 400 MG Tablet PO SCH (08:32)
[2018-08-03] MEDS: Propranolol 10 MG Tablet PO SCH ×2 (08:32→20:31)
[2018-08-03] MEDS: Ciprofloxacin 500 MG Tablet PO SCH (08:32)
[2018-08-04 07:37] LABS: Baso # (Auto) 0.1 th/mm3 (0.0-0.2); Baso % (Auto) 1.3 % (0.0-2.0); Eos # (Auto) 0.2 th/mm3 (0.0-0.4); Eos % (Auto) 4.1 % (0.0-4.0); Hematocrit 23.2 % (39.0-51.0); Hemoglobin 8.2 gm/dL (13.0-17.0); Lymph # (Auto) 1.3 th/mm3 (1.0-4.8); Lymph % (Auto) 22.1 % (9.0-44.0); Mean Corpuscular HGB Conc 35.5 % (32.0-36.0); Mean Corpuscular Hemoglobin 37.1 pg (27.0-34.0); Mean Corpuscular Volume 104.4 fL (80.0-100.0); Mean Platelet Volume 8.1 fL (7.0-11.0); Mono # (Auto) 0.7 th/mm3 (0.0-0.9); Mono % (Auto) 12.5 % (0.0-8.0); Neut # (Auto) 3.6 th/mm3 (1.8-7.7); Platelet Count 92 th/mm3 (150-450); Red Blood Count 2.22 mil/mm3 (4.50-5.90); Red Cell Distribution Width 18.4 % (11.6-17.2)
[2018-08-04 07:53] LABS: Anion Gap 6 meq/L (5-15); Blood Urea Nitrogen 19 mg/dL (7-18); Calcium 7.8 mg/dL (8.5-10.1); Carbon Dioxide 28.5 meq/L (21.0-32.0); Chloride 106 meq/L (98-107); Glomerular Filtration Rate Greater Than 89 mL/min (>89); Glucose,Random 91 mg/dL (74-106); Potassium 4.3 meq/L (3.5-5.1); Sodium 140 meq/L (136-145)
[2018-08-04] MEDS: Senna/Docusate Sodium 8.6/50 MG Tablet PO SCH ×2 (09:34→21:34)
[2018-08-04] MEDS: Furosemide 40 MG Tablet PO SCH (09:34)
[2018-08-04] MEDS: Propranolol 10 MG Tablet PO SCH ×2 (09:35→20:56)
[2018-08-04] MEDS: Ciprofloxacin 500 MG Tablet PO SCH (09:35)
[2018-08-04] MEDS: Magnesium Oxide 400 MG Tablet PO SCH (09:35)
[2018-08-04] MEDS: Morphine Sulfate Inj 2 MG/ML Vial IV.PUSH PRN ×3 (09:43→21:33)
[2018-08-04 10:55] LABS: Acanthocytes 2+; Polychromasia 2.5 % (0.0-1.9)
[2018-08-04 10:56] LABS: Dimorphic RBC Present; Platelet Morphology Normal (Normal)
--- NOTE | 2018-08-04 13:38 | P.PNIM ---
Subjective Interval history: Patient is seen lying in bed. He tells me that his abdomen feels like "is filling up again". He continues to get a lot of drainage. Nursing reports that patient has been draining collection bag on his own despite being instructed not to. Patient denies any chest pain or shortness of breath. No fever or chills. no nausea vomiting or diarrhea although he does have some heartburn and would like his home PPI restarted. Physical Exam Vital signs: Last Vital Signs Temp 97.9 F 08/04/18 11:31 Pulse 69 08/04/18 11:31 Resp 18 08/04/18 11:31 BP 100/56 L 08/04/18 11:31 Pulse Ox 89 L 08/04/18 11:31 Intake & Output 08/02/18 08/03/18 08/04/18 08/05/18 06:59 06:59 06:59 06:59 Intake Total 570 / 570 100 / 100 480 / 480 Output Total 325 / 325 475 / 475 Balance 570 / 570 -225 / -225 5 / Weight 86 kg Narrative: GENERAL: Well-nourished, well-developed patient in [facility]. SKIN: Warm and dry. No rash. Jaundiced HEENT: Normocephalic. Atraumatic. Pupils equal and round. Mucous membranes pink and moist. CARDIOVASCULAR: Regular rate and rhythm. RESPIRATORY: No accessory muscle use. Clear to auscultation. Breath sounds equal bilaterally. GASTROINTESTINAL: Abdomen soft, non-tender, mildly distended, improved. Normoactive bowel sounds x4. MUSCULOSKELETAL: No obvious deformities. 1+ bilateral lower extremity edema. NEUROLOGICAL: Awake and alert. No obvious cranial nerve deficits. Motor grossly within normal limits. Moving all extremities spontaneously. Normal speech. PSYCHIATRIC: Appropriate mood and affect; insight and judgment normal. Results Labs CBC & Chem 7: 08/04/18 06:19 08/04/18 06:19 Labs: Microbiology 08/01/18 13:12 Fluid - Peritoneal fluid Gram Stain - Final 08/01/18 13:12 Fluid - Peritoneal fluid Body Fluid Culture - Preliminary No growth in 24 hours 07/31/18 20:05 Blood - Peripheral Aerobic Blood Culture - Preliminary No growth in 4 days 07/31/18 20:05 Blood - Peripheral Anaerobic Blood Culture - Preliminary No growth in 4 days 07/31/18 20:00 Blood - Peripheral Aerobic Blood Culture - Preliminary No growth in 4 days 07/31/18 20:00 Blood - Peripheral Anaerobic Blood Culture - Preliminary No growth in 4 days Procedures Procedures: 08/01/18ultrasound-guided paracentesis, removed 11,200 cc of clear yellow fluid, sent for studies Assessment and Plan (1) Cirrhosis: Code(s): K74.60 - Unspecified cirrhosis of liver Status: Acute (2) Ascites: Code(s): R18.8 - Other ascites Status: Acute (3) Coagulopathy: Code(s): D68.9 - Coagulation defect, unspecified Status: Acute Plan 48-year-old male with a PMH of Alcohol Abuse, Cirrhosis and Recurrent Ascites who presented to the ER with complaints of worsening abdominal distention and SOB x3 days. Previous admit 07/06-07/12/18 for similar presentation, s/p paracentesis 07/08/18 w/ 10L removed, noted to have Klebsiella Bacteremia, s/p eval by ID and treated for possible SBP, d/c'd on Cipro 500mg qd for prophylaxis. Returns now w/ worsening distension. Cirrhosis with Acute Ascites: Acute on Chronic, secondary to h/o Alcohol Abuse , states quit alcohol approx 4 months ago. -continue Lasix/Aldactone, started Propranolol bid. -Monitor I/O. -08/01 - s/p U/S guided paracentesis, removed 11,200cc; has drainage bag. -Giving IV albumin per protocol -peritoneal fluid sent for culture, pending -Continue patient's prophylactic cipro 500mg daily, started on previous admission -will hold off on any additional IV antibiotics unless culture positive; no growth to date -symptoms much improved after paracentesis, tolerating oral intake, needs to f/up as outpatient Acute hypoxic respiratory failure: hypoxic on admission, likely due to abdominal distention and decompensated cirrhosis with volume overload -CT abd/pelvis showing pleural effusions with dependent consolidation, likely atelectasis -continue incentive spirometry -Continue diuresis with lasix and spironolactone. -Patient now weaned off oxygen, stable on room air -Encourage ambulation Coagulopathy: Secondary to liver disease, INR 1.7, no active bleeding at this time -Repeat INR 2.0 -monitor closely. Macrocytic anemia: Chronic, suspect secondary to liver disease in alcohol abuse ; no evidence of active bleeding -Monitor H&H -Continue PPI -Plan to transfuse if hemoglobin drops less than 7 DVT Prophylaxis: Pharmacologic contraindication in light of coagulopathy/liver failure Discharge Planning: Patient continuing diuresis for ascites and dyspnea/pleural effusions, also awaiting peritoneal fluid culture results. Progress Note: Quality VTE Deep Vein Thrombosis/Pulmonary Embolism Present on Admission: Yes _ (1) Cirrhosis Qualifiers: Hepatic cirrhosis type: Ascites presence: (2) Ascites Qualifiers: Ascites type:
[2018-08-05] MEDS: Propranolol 10 MG Tablet PO SCH ×2 (09:05→20:31)
[2018-08-05] MEDS: Ciprofloxacin 500 MG Tablet PO SCH (09:05)
[2018-08-05] MEDS: Senna/Docusate Sodium 8.6/50 MG Tablet PO SCH ×2 (09:05→20:32)
[2018-08-05] MEDS: Furosemide 40 MG Tablet PO SCH (09:05)
[2018-08-05] MEDS: Magnesium Oxide 400 MG Tablet PO SCH (09:06)
[2018-08-05] MEDS: Morphine Sulfate Inj 2 MG/ML Vial IV.PUSH PRN ×4 (09:12→20:43)
--- NOTE | 2018-08-05 14:10 | P.PNIM ---
Subjective Interval history: Patient is seen lying in bed. He reports that he continues to have a lot of drainage from the paracentesis site. He has emptied the bag 3 times himself. He feels like he is swelling back up. Tells me that he does not have any outside healthcare providers. Cannot be seen at [facility] until September per his report. He states that if he is discharged he will be back within days because the abdominal pain gets to be too much. Physical Exam Vital signs: Last Vital Signs Temp 97.8 F 08/05/18 12:00 Pulse 64 08/05/18 12:00 Resp 16 08/05/18 12:00 BP 110/56 L 08/05/18 12:00 Pulse Ox 92 L 08/05/18 12:00 Intake & Output 08/03/18 08/04/18 08/05/18 08/06/18 06:59 06:59 06:59 06:59 Intake Total 100 / 100 480 / 480 Output Total 325 / 325 475 / 475 300 / 300 Balance -225 / -225 5 / 5 -300 / -300 Narrative: GENERAL: well-developed adult male in [facility]. SKIN: Warm and dry. No rash. Jaundiced HEENT: Normocephalic. Atraumatic. Pupils equal and round. Mucous membranes pink and moist. CARDIOVASCULAR: Regular rate and rhythm. RESPIRATORY: No accessory muscle use. Clear to auscultation. Breath sounds equal bilaterally. GASTROINTESTINAL: Abdomen soft, non-tender, mildly distended. Drainage bag over paracentesis site with clear yellow fluid. Normoactive bowel sounds x4. MUSCULOSKELETAL: No obvious deformities. 1+ bilateral lower extremity edema. NEUROLOGICAL: Awake and alert. No obvious cranial nerve deficits. Motor grossly within normal limits. Moving all extremities spontaneously. Normal speech. PSYCHIATRIC: Appropriate mood and affect; insight and judgment normal. Results Labs CBC & Chem 7: 08/04/18 06:19 08/04/18 06:19 Labs: Microbiology 07/31/18 20:05 Blood - Peripheral Aerobic Blood Culture - Final No growth in 5 days 07/31/18 20:05 Blood - Peripheral Anaerobic Blood Culture - Final No growth in 5 days 07/31/18 20:00 Blood - Peripheral Aerobic Blood Culture - Final No growth in 5 days 07/31/18 20:00 Blood - Peripheral Anaerobic Blood Culture - Final No growth in 5 days 08/01/18 13:12 Fluid - Peritoneal fluid Gram Stain - Final 08/01/18 13:12 Fluid - Peritoneal fluid Body Fluid Culture - Preliminary No growth in 48 hours Procedures Procedures: 08/01/18ultrasound-guided paracentesis, removed 11,200 cc of clear yellow fluid, sent for studies Assessment and Plan (1) Cirrhosis: Code(s): K74.60 - Unspecified cirrhosis of liver Status: Acute (2) Ascites: Code(s): R18.8 - Other ascites Status: Acute (3) Coagulopathy: Code(s): D68.9 - Coagulation defect, unspecified Status: Acute Plan 48-year-old male with a PMH of Alcohol Abuse, Cirrhosis and Recurrent Ascites who presented to the ER with complaints of worsening abdominal distention and SOB x3 days. Previous admit 07/06-07/12/18 for similar presentation, s/p paracentesis 07/08/18 w/ 10L removed, noted to have Klebsiella Bacteremia, s/p eval by ID and treated for possible SBP, d/c'd on Cipro 500mg qd for prophylaxis. Returns now w/ worsening distension. Cirrhosis with Acute Ascites: Acute on Chronic, secondary to h/o Alcohol Abuse , states quit alcohol approx 4 months ago. -continue Lasix/Aldactone, started Propranolol bid. -Monitor I/O. -08/01 - s/p U/S guided paracentesis, removed 11,200cc; has drainage bag. -Giving IV albumin per protocol -peritoneal fluid sent for culture, pending -Continue patient's prophylactic cipro 500mg daily, started on previous admission -will hold off on any additional IV antibiotics unless culture positive; no growth to date -symptoms much improved after paracentesis, tolerating oral intake, needs to f/up as outpatient Acute hypoxic respiratory failure: hypoxic on admission, likely due to abdominal distention and decompensated cirrhosis with volume overload -CT abd/pelvis showing pleural effusions with dependent consolidation, likely atelectasis -continue incentive spirometry -Continue diuresis with lasix and spironolactone. -Patient now weaned off oxygen, stable on room air -Encourage ambulation Coagulopathy: Secondary to liver disease, INR 1.7, no active bleeding at this time -Repeat INR 2.0 -monitor closely. Macrocytic anemia: Chronic, suspect secondary to liver disease in alcohol abuse ; no evidence of active bleeding -Monitor H&H -Continue PPI -Plan to transfuse if hemoglobin drops less than 7 DVT Prophylaxis: Pharmacologic contraindication in light of coagulopathy/liver failure Discharge Planning: Patient continuing diuresis for ascites and dyspnea/pleural effusions, also awaiting peritoneal fluid culture results. Will need outpatient follow-up for likely repeat paracentesis to avoid returning to ED. Progress Note: Quality VTE Deep Vein Thrombosis/Pulmonary Embolism Present on Admission: Yes _ (1) Cirrhosis Qualifiers: Hepatic cirrhosis type: Ascites presence: (2) Ascites Qualifiers: Ascites type:
[2018-08-06] MEDS: Morphine Sulfate Inj 2 MG/ML Vial IV.PUSH PRN (01:59)
[2018-08-06 07:26] VITALS: BP 98/57; PULSE 74; RESP 16; TEMP 98.2; O2SAT 91
[2018-08-06 07:31] LABS: Baso # (Auto) 0.1 th/mm3 (0.0-0.2); Baso % (Auto) 1.1 % (0.0-2.0); Eos # (Auto) 0.2 th/mm3 (0.0-0.4); Eos % (Auto) 3.4 % (0.0-4.0); Hematocrit 23.4 % (39.0-51.0); Hemoglobin 8.2 gm/dL (13.0-17.0); Lymph # (Auto) 1.5 th/mm3 (1.0-4.8); Lymph % (Auto) 21.5 % (9.0-44.0); Mean Corpuscular HGB Conc 35.1 % (32.0-36.0); Mean Corpuscular Hemoglobin 37.3 pg (27.0-34.0); Mean Corpuscular Volume 106.4 fL (80.0-100.0); Mono % (Auto) 15.2 % (0.0-8.0); Neut % (Auto) 58.8 % (16.0-70.0); Platelet Count 94 th/mm3 (150-450); Red Cell Distribution Width 17.4 % (11.6-17.2); White Blood Count 6.8 th/mm3 (4.0-11.0)
[2018-08-06 08:35] LABS: Eosinophils 4 % (0-4); Lymphocytes 21 % (9-44); Monocytes 10 % (0-8); Promyelocyte 1 % (0-0)
[2018-08-06 08:36] LABS: Acanthocytes 3+; Platelet Morphology Normal (Normal)
[2018-08-06] MEDS: Ciprofloxacin 500 MG Tablet PO SCH (08:59)
[2018-08-06] MEDS: Magnesium Oxide 400 MG Tablet PO SCH (09:00)
[2018-08-06] MEDS: Furosemide 40 MG Tablet PO SCH (09:00)
[2018-08-06] MEDS: Propranolol 10 MG Tablet PO SCH (09:00)
[2018-08-06] MEDS: Senna/Docusate Sodium 8.6/50 MG Tablet PO SCH (09:02)
--- NOTE | 2018-08-06 09:03 | P.PNIM ---
Subjective Interval history: Patient is seen lying in bed. Still having drainage from paracentesis site. No fever or chills. No chest pain or shortness of breath. No nausea vomiting or diarrhea. Physical Exam Vital signs: Last Vital Signs Temp 98.2 F 08/06/18 07:23 Pulse 74 08/06/18 07:23 Resp 16 08/06/18 07:23 BP 98/57 L 08/06/18 07:23 Pulse Ox 91 L 08/06/18 07:23 Intake & Output 08/04/18 08/05/18 08/06/18 08/07/18 06:59 06:59 06:59 06:59 Intake Total 480 / 480 500 / 500 750 / 750 Output Total 475 / 475 300 / 300 Balance 5 / 5 -300 / -300 500 / 500 750 / 750 Narrative: GENERAL: well-developed adult male in NAD. SKIN: Warm and dry. No rash. Jaundiced HEENT: Normocephalic. Atraumatic. Pupils equal and round. Mucous membranes pink and moist. CARDIOVASCULAR: Regular rate and rhythm. RESPIRATORY: No accessory muscle use. Clear to auscultation. Breath sounds equal bilaterally. GASTROINTESTINAL: Abdomen soft, non-tender, mildly distended. Drainage bag over paracentesis site with clear yellow fluid. Normoactive bowel sounds x4. MUSCULOSKELETAL: No obvious deformities. 1+ bilateral lower extremity edema. NEUROLOGICAL: Awake and alert. No obvious cranial nerve deficits. Motor grossly within normal limits. Moving all extremities spontaneously. Normal speech. PSYCHIATRIC: Appropriate mood and affect; insight and judgment normal. Results Labs CBC & Chem 7: 08/06/18 06:00 08/04/18 06:19 Labs: Microbiology 08/01/18 13:12 Fluid - Peritoneal fluid Gram Stain - Final 08/01/18 13:12 Fluid - Peritoneal fluid Body Fluid Culture - Final No growth in 72 hours (aerobically and anaerobically ) 07/31/18 20:05 Blood - Peripheral Aerobic Blood Culture - Final No growth in 5 days 07/31/18 20:05 Blood - Peripheral Anaerobic Blood Culture - Final No growth in 5 days 07/31/18 20:00 Blood - Peripheral Aerobic Blood Culture - Final No growth in 5 days 07/31/18 20:00 Blood - Peripheral Anaerobic Blood Culture - Final No growth in 5 days Procedures Procedures: 08/01/18ultrasound-guided paracentesis, removed 11,200 cc of clear yellow fluid, sent for studies Assessment and Plan (1) Cirrhosis: Code(s): K74.60 - Unspecified cirrhosis of liver Status: Acute (2) Ascites: Code(s): R18.8 - Other ascites Status: Acute (3) Coagulopathy: Code(s): D68.9 - Coagulation defect, unspecified Status: Acute Plan 48-year-old male with a PMH of Alcohol Abuse, Cirrhosis and Recurrent Ascites who presented to the ER with complaints of worsening abdominal distention and SOB x3 days. Previous admit 07/06-07/12/18 for similar presentation, s/p paracentesis 07/08/18 w/ 10L removed, noted to have Klebsiella Bacteremia, s/p eval by ID and treated for possible SBP, d/c'd on Cipro 500mg qd for prophylaxis. Returns now w/ worsening distension. Cirrhosis with Acute Ascites: Acute on Chronic, secondary to h/o Alcohol Abuse , states quit alcohol approx 4 months ago. -continue Lasix/Aldactone, started Propranolol bid. -Monitor I/O. -08/01 - s/p U/S guided paracentesis, removed 11,200cc; has drainage bag. -Giving IV albumin per protocol -Continue patient's prophylactic cipro 500mg daily, started on previous admission -will hold off on any additional IV antibiotics unless culture positive; no growth to date -symptoms much improved after paracentesis, tolerating oral intake, needs to f/up as outpatient Acute hypoxic respiratory failure: hypoxic on admission, likely due to abdominal distention and decompensated cirrhosis with volume overload -CT abd/pelvis showing pleural effusions with dependent consolidation, likely atelectasis -continue incentive spirometry -Continue diuresis with lasix and spironolactone. -Patient now weaned off oxygen, stable on room air -Encourage ambulation Coagulopathy: Secondary to liver disease, INR 1.7, no active bleeding at this time -Repeat INR 2.0 -monitor closely. Macrocytic anemia: Chronic, suspect secondary to liver disease in alcohol abuse ; no evidence of active bleeding -Monitor H&H -Continue PPI -Plan to transfuse if hemoglobin drops less than 7 DVT Prophylaxis: Pharmacologic contraindication in light of coagulopathy/liver failure Discharge Planning: Patient has follow-up appointment scheduled at [facility] in early August. Will discharge with drainage bag and instructions on how to change and keep clean. Progress Note: Quality VTE Deep Vein Thrombosis/Pulmonary Embolism Present on Admission: Yes _ (1) Cirrhosis Qualifiers: Hepatic cirrhosis type: Ascites presence: (2) Ascites Qualifiers: Ascites type:
--- NOTE | 2018-08-06 09:06 | P.DS ---
DS: Providers Date of admission: 07/31/18 20:28 Primary care physician: No Primary Care Physician Brief History from admission: This is a 48-year-old male with a PMH of Alcohol Abuse, Cirrhosis and Recurrent Ascites who presented to the ER with complaints of worsening abdominal distention and SOB x3 days. Previous admit 07/06- for similar presentation, s/p paracentesis 07/08/18 w/ 10L removed, noted to have Klebsiella Bacteremia, s/p eval by ID and treated for possible SBP, d/c'd on Cipro 500mg qd for prophylaxis. Returns now w/ worsening distension. States unable to get into [facility] until September. Denies fever or chills. On arrival, BP 139/79, HR 105, O2 sat 94% on RA, Afebrile. Chemistry at baseline. Hemoglobin 9.6, previously 9.1 on 07-28. Platelets 143. INR 1.7. Chemistry essentially unremarkable. Lactic Acid 3.2. Lipase 430. UA negative for UTI. CXR with consolidation and small to moderate effusions bilaterally. CT Abdomen/ Pelvis cirrhosis and large ascites, splenomegaly with suspected scattered infarcts, gastric varices, large hiatal hernia, bilateral effusions. S/p Vanc/ Zosyn in ER for h/o bacteremia. DS: Diagnosis Discharge Diagnosis (1) Cirrhosis: Status: Acute (2) Ascites: Status: Acute (3) Coagulopathy: Status: Acute DS: Summary 48-year-old male with a PMH of Alcohol Abuse, Cirrhosis and Recurrent Ascites who presented to the ER with complaints of worsening abdominal distention and SOB x3 days. Previous admit 07/06-07/12/18 for similar presentation, s/p paracentesis 07/08/18 w/ 10L removed, noted to have Klebsiella Bacteremia, s/p eval by ID and treated for possible SBP, d/c'd on Cipro 500mg qd for prophylaxis. Returns now w/ worsening distension. Cirrhosis with Acute Ascites: Acute on Chronic, secondary to h/o Alcohol Abuse , states quit alcohol approx 4 months ago. Encouraged to continue cessation. -continue Lasix/Aldactone, started Propranolol bid. -Monitor I/O. -08/01 - s/p U/S guided paracentesis, removed 11,200cc; has drainage bag. -Giving IV albumin per protocol -Continue patient's prophylactic cipro 500mg daily, started on previous admission -will hold off on any additional IV antibiotics unless culture positive; no growth to date -symptoms much improved after paracentesis, tolerating oral intake, needs to f/up as outpatient Acute hypoxic respiratory failure: hypoxic on admission, likely due to abdominal distention and decompensated cirrhosis with volume overload. Resolved -CT abd/pelvis showing pleural effusions with dependent consolidation, likely atelectasis -continue incentive spirometry -Continue diuresis with lasix and spironolactone. -Patient now weaned off oxygen, stable on room air -Encourage ambulation Coagulopathy: Secondary to liver disease, INR 1.7, no active bleeding at this time. Chronic; stable -Repeat INR 2.0 -monitor closely. Macrocytic anemia: Chronic, suspect secondary to liver disease in alcohol abuse ; no evidence of active bleeding; stable -Monitor H&H -Continue PPI -Plan to transfuse if hemoglobin drops less than 7 DVT Prophylaxis: Pharmacologic contraindication in light of coagulopathy/liver failure Patient has follow-up appointment scheduled at [facility] in early August. Discharged with drainage bag and instructions on how to change and keep clean. Time Spent with Patient Total time spent providing and/or coordinating discharge services: <30 min Quality: VTE Deep Vein Thrombosis/Pulmonary Embolism Present on Admission: Yes Exam Narrative Exam Narrative: GENERAL: well-developed adult male in NAD. SKIN: Warm and dry. No rash. Jaundiced HEENT: Normocephalic. Atraumatic. Pupils equal and round. Mucous membranes pink and moist. CARDIOVASCULAR: Regular rate and rhythm. RESPIRATORY: No accessory muscle use. Clear to auscultation. Breath sounds equal bilaterally. GASTROINTESTINAL: Abdomen soft, non-tender, mildly distended. Drainage bag over paracentesis site with clear yellow fluid. Normoactive bowel sounds x4. MUSCULOSKELETAL: No obvious deformities. 1+ bilateral lower extremity edema. NEUROLOGICAL: Awake and alert. No obvious cranial nerve deficits. Motor grossly within normal limits. Moving all extremities spontaneously. Normal speech. PSYCHIATRIC: Appropriate mood and affect; insight and judgment normal. Results Procedures completed during hospitalization: 08/01/18ultrasound-guided paracentesis, removed 11,200 cc of clear yellow fluid, sent for studies Labs on day of discharge: Labs from last 24 hours 08/06/18 06:00 WBC 6.8 RBC 2.20 L Hgb 8.2 L Hct 23.4 L MCV 106.4 H MCH 37.3 H MCHC 35.1 RDW 17.4 H Plt Count 94 L MPV 8.0 Prelim Diff (Auto) Slide review pending Neut % (Auto) 58.8 Lymph % (Auto) 21.5 [place] % (Auto) 15.2 H Eos % (Auto) 3.4 Baso % (Auto) 1.1 Neut # (Auto) 4.0 Lymph # (Auto) 1.5 [place]vert # (Auto) 1.0 H Eos # (Auto) 0.2 Baso # (Auto) 0.1 WBC Differential Manual diff final Seg Neuts % (Manual) 62 Lymphocytes % (Manual) 21 Monocytes % (Manual) 10 H Eosinophils % (Manual) 4 Basophils % (Manual) 2 Promyelocytes % (Man) 1 H Abs Neuts (Manual) 4.3 Differential Comment . Platelet Estimate Low L Platelet Morphology Normal Acanthocytes (Spur) 3+ H Keratocytes 1+ H Impressions ITS Impressions Abdomen/Pelvis CT 07/31/18 17:56 CONCLUSION: 1. Cirrhosis and large ascites. 2. Splenomegaly with suspected scattered infarcts. 3. Portosystemic collaterals include recanalized umbilical vein, splenorenal shunt and gastroesophageal varices. 4. Large hiatal hernia. 5. Left inguinal hernia containing fat and ascitic fluid. 6. Effusions and dependent consolidation of the visualized lung bases. Chest X-Ray 07/31/18 20:26 CONCLUSION: Consolidation and small to moderate effusions at each lung base. Paracentesis Ultrasound 08/01/18 00:00 CONCLUSION: 1. Uncomplicated paracentesis. Discharge Plan Discharge Disposition Patient Disposition: Discharge Home Discharge Condition Condition: Stable Discharge Order Discharge Orders: Discharge Order (Routine); Ordered 08/06/18 Ordered By: Zakia Vasquez ED Use Only Admit Order (Routine); Ordered 07/31/18 Ordered By: Yoselin Xie Discharge Details Anticipated Discharge Date: 08/06/18 Diagnosis: Ascites, Acute dyspnea, Cirrhosis Physicians Team ED Provider: Yesenia Mccarty ED Midlevel Provider: Yoselin Xie Primary Care Provider: Primary Care Margo Simons Attending Provider: Jacky Martinez Rxs /Orders / Referrals /Forms Prescriptions: New propranolol 10 mg Tablet 10 mg PO BID Qty: 60 RF: 0 Continue omeprazole 20 mg PO DAILY RF: 0 furosemide 40 mg Tablet 40 mg PO DAILY 30 Days Qty: 30 RF: 0 ciprofloxacin HCl [Cipro] 250 mg Tablet 500 mg PO DAILY 30 Days Qty: 30 RF: 0 spironolactone [Aldactone] 25 mg Tablet 50 mg PO DAILY 30 Days Qty: 30 RF: 0 Referrals: [facility] [Outside] - See Instructions Discharge Instructions Patient Printed Instructions: Ascites (GEN), Cirrhosis (GEN) Status ED Status: Left Department
== END 2018-08-06 11:26 | disposition home or self-care (01) ==
LOC: NEDA 17:39 → NEPE 17:39 → NEPFCDU 22:04
PROVIDERS: ADMIT Internal Medicine; ATTEND Internal Medicine
DX: F10.20 Alcohol dependence, uncomplicated; I10 Essential (primary) hypertension; D53.9 Nutritional anemia, unspecified; J90 Pleural effusion, not elsewhere classified; E44.0 Moderate protein-calorie malnutrition; Z83.3 Family history of diabetes mellitus; R16.1 Splenomegaly, not elsewhere classified; J96.01 Acute respiratory failure with hypoxia; K72.90 Hepatic failure, unspecified without coma; F17.210 Nicotine dependence, cigarettes, uncomplicated; K44.9 Diaphragmatic hernia without obstruction or gangrene; J98.11 Atelectasis; K40.90 Unilateral inguinal hernia, without obstruction or gangrene, not specified as recurrent; I86.4 Gastric varices; K70.31 Alcoholic cirrhosis of liver with ascites; I26.99 Other pulmonary embolism without acute cor pulmonale; D68.4 Acquired coagulation factor deficiency; E87.70 Fluid overload, unspecified; E87.2 Acidosis; I85.00 Esophageal varices without bleeding
CPT/HCPCS: 49083; 71010; 71045; 74177; 80048; 80053; 81001; 82140; 82945; 83605; 83615; 83690; 83735; 84155; 84157; 85025; 85610; 85730; 86850; 86900; 86901; 87040; 87070; 87205; 89051; 90775; 93005; 94150; 96365; 96366; 96375; 96376; 99285; C1729; C9113; G0378; J1940; J2270; J2405; J3370; J7050; P9047; Q9967